=== PATIENT | male | born 1965 | race Caucasian/White ===

== ENCOUNTER 2016-04-13 17:12 | Emergency (ER) | payer BC ==
[~2016-04-13] VITALS: Ht 182.9 cm; Wt 71.0 kg
[~2016-04-13 17:12] MED LIST: CYAN3INJ PO; LORA5TAB3 PO; METR-163 PO; PEDICHW18 PO; PRLSR20 PO; VTMD PO; [UNRECOGNIZED DRUG - CODE]
[2016-04-13 17:18] VITALS: BP 159/90; PULSE 63; TEMP 36.9; O2SAT 97; Ht 182.9 cm; Wt 71.0 kg
--- NOTE | 2016-04-13 18:06 | EMERGENCY ROOM VISIT NOTE ---
ED Visit Note First contact with patient: 17:36 CHIEF COMPLAINT: PICC line evaluation HISTORY OF PRESENT ILLNESS: This 50-year-old male patient presents to the emergency department for evaluation of his PICC line. The PICC line was placed earlier today. He states when he got home he noticed there was bleeding under the bandage. He denies any fevers. He denies any injury. Denies any other complaints. The patient states they tried to put a PICC line in the right arm and he noticed some discoloration to that arm. He has not had any numbness or tingling. He has the PICC line for TPN which she has not yet started. REVIEW OF SYSTEMS: A 10 system review of systems was completed with positives and pertinent negatives listed in the HPI. ALLERGIES: Sulfa MEDICATIONS: See nursing notes PMH: Crohn's disease SOCIAL HISTORY: The patient lives locally with family PHYSICAL EXAM: VITALS: Vitals are noted on the nurse's note and reviewed by myself. Vital signs stable. GENERAL: This is a 50-year-old male, in no acute distress, nondiaphoretic, well- developed well-nourished. SKIN: The left upper arm reveals a PICC line with a small amount of blood beneath the Tegaderm dressing. There is no erythema, warmth, drainage of pus. The right arm reveals a blue discoloration which was easily removed with an alcohol wipe. EMERGENCY DEPARTMENT COURSE: The patient presented for PICC line evaluation. He was evaluated by the PICC line nurse to change the dressing and felt the PICC line is functioning well and will do fine. I believe the discoloration to the right arm that concerned the patient was due to chlorhexidine and Betadine. It was easily removed with an alcohol wipe. The patient should continue his current medications. He should return with worsening symptoms. Problem List Medical Problems: (1) Crohn's disease Permanent Comment: s/p small bowel resection Status: Chronic (2) Long-term use of immunosuppressant medication Permanent Comment: Cimzia, Imuran, IVIG Status: Chronic Surgical Problems: (1) History of bowel resection Permanent Comment: 2/3rds small bowel removed 2* crohns Status: Resolved Current/Historical Medications Scheduled Azathioprine (Imuran), 150 MG PO DAILY Budesonide (Entocort Ec), 6 MG PO DAILY Calcium/Vitamin D (Os-Leonardo 500 Plus D), 1 TAB PO DAILY Cholestyramine (Cholestyramine), 6 GM PO BID Cyanocobalamin (Cyanocobalamin), 1,000 MCG IM WK Ergocalciferol (Vitamin D), 50,000 INTER.UNIT PO 2XWK Golimumab (Simponi), 100 MG SC [id number] Immune Globulin (Human) Iv (Bivigam), 1 DOSE IV. [id number] Loperamide Hcl (Imodium A-D), 6 MG PO TID Metronidazole (Flagyl), 250 MG PO UD Omeprazole (Prilosec), 20 MG PO BID Pediatric Multiple Vitamin W/ (Childrens Chewable Vitamin), 1 CHW PO DAILY Zoledronic Acid (Reclast), 5 MG IV YEARLY Scheduled PRN Acetaminophen (Tylenol), 1,000 MG PO UD PRN for Pain Loratadine & Pseudoephedrine (Claritin-D 12 Hour), 1 TAB PO BID PRN for Allergy Symptoms Allergies Coded Allergies: Sulfa Antibiotics (Verified Allergy, Unknown, UNKNOWN, 04/13/16) Infliximab (Verified Adverse Reaction, Severe, " LUPUS SYMPTOMS", 04/13/16) Vital Signs Date Time Temp Pulse Resp B/P Pulse Ox O2 Delivery O2 Flow Rate FiO2 04/13/16 17:18 36.9 63 18 159/90 97 Room Air Departure Information Impression Primary Impression: Bleeding from PICC line Dispostion Home / Self-Care Condition GOOD Referrals Jp Morales M.D. (PCP) Patient Instructions My [facility] Additional Instructions Return with any worsening bleeding, fevers, redness, warmth Otherwise, continue your prescribed medications and follow up with your family doctor as needed Problem Qualifiers Primary Impression: Bleeding from PICC line Encounter type: initial encounter Qualified Codes: T82.838A - Hemorrhage due to vascular prosthetic devices, implants and grafts, initial encounter
[2016-09-29] MEDS ORDERED: BUDE3CAP14 PO (02:41)
[2016-09-29] MEDS ORDERED: LOPE-5 PO (05:50)
[2016-09-29] MEDS ORDERED: ACET-1256 PO (05:51)
[2016-09-29] MEDS ORDERED: CHOL4POW3 PO (08:41)
[2016-09-29] MEDS ORDERED: TPN IV (08:59)
[2016-09-29] MEDS ORDERED: AZAT50TA17 PO (10:25)
[2016-09-29] MEDS ORDERED: ZOLE5INJ IV (10:34)
[2016-09-29] MEDS ORDERED: IMMU1INJ IV. (10:34)
[2016-09-29] MEDS ORDERED: CALC500C70 PO (12:48)
[2016-09-29] MEDS ORDERED: CYNI1000 IM (17:42)
[2016-09-29] MEDS ORDERED: METR250T PO (17:42)
[2016-09-29] MEDS ORDERED: [UNRECOGNIZED DRUG - CODE] SC (17:42)
== END 2016-04-13 18:14 | disposition home or self-care (01) ==
LOC: C.EDB 17:13 → C.EDD 18:14
DX: T82.838A Hemorrhage due to vascular prosthetic devices, implants and grafts, initial encounter (principal); K50.90 Crohn's disease, unspecified, without complications; Z90.49 Acquired absence of other specified parts of digestive tract; Z79.899 Other long term (current) drug therapy; X58.XXXA Exposure to other specified factors, initial encounter; Y93.89 Activity, other specified; Y92.89 Other specified places as the place of occurrence of the external cause; Y99.8 Other external cause status

== ENCOUNTER 2016-04-15 22:55 | Emergency (ER) | payer BC ==
[~2016-04-15] VITALS: Ht 182.9 cm; Wt 71.4 kg
[~2016-04-15 22:55] MED LIST changes: -CYAN3INJ PO; -METR-163 PO; -[UNRECOGNIZED DRUG - CODE]
[2016-04-15 23:00] VITALS: TEMP 36.7; Ht 182.9 cm; Wt 71.4 kg
--- NOTE | 2016-04-15 23:38 | EMERGENCY ROOM VISIT NOTE ---
History Report prepared by Dayana: Oxana Hardin Under the Supervision of: Dr. Perez Pike M.D. First contact with patient: 23:27 Chief Complaint: LEG PAIN,LEG INJURY Stated Complaint: PAIN IN LEG (BLOOD CLOT), HAS PICC LINE History of Present Illness The patient is a 50 year old male who presents to the Emergency Room with complaints of persistent pain in his bilateral legs that began around 1700 this evening. He is accompanied by his . He rates his current discomfort as a 2/ 10. He reports around 2100 tonight, he experienced a "sharp" pain in his legs. It has mostly resolved, but he still complains of feeling a sensation of "tightness" in both legs. He denies any color change in his legs or feet, back pain or urinary symptoms. He notes he was unable to sleep this evening because he was worried about his legs, so he came to the ED. The patient had a PICC line placed in his left upper arm 2 days ago in order to receive TPN for a history of Crohn's disease. The TPN is administered for approximately 8 hours each night, and he has a nurse come to his home once a week to check the line. The patient denies any recent heavy lifting or strenuous activity. He notes his job is pretty sedentary and states "I sat at a desk for about 8 hours today at work". He denies any shortness of breath or chest pain. The patient also denies any history of previous DVT's. Source of History: patient Onset: 1700 tonight Position: leg (bilateral) Symptom Intensity: 2/10 Quality: other ("tightness") Timing: other (persistent) Associated Symptoms: No SOB, No back pain, No chest pain, No urinary symptoms Review of Systems See HPI for pertinent positives & negatives. A total of 6 systems reviewed and were otherwise negative. Past Medical & Surgical Medical Problems: (1) Crohn's disease (2) Long-term use of immunosuppressant medication Surgical Problems: (1) History of bowel resection Family History Cancer Diabetes mellitus Kidney disease Kidney stones Social History Smoking Status: Never Smoker Drug Use: none Marital Status: Housing Status: lives with family Occupation Status: employed Current/Historical Medications Scheduled Azathioprine (Imuran), 150 MG PO DAILY Budesonide (Entocort Ec), 6 MG PO DAILY Calcium/Vitamin D (Os-Leonardo 500 Plus D), 1 TAB PO DAILY Cholestyramine (Cholestyramine), 6 GM PO BID Cyanocobalamin (Cyanocobalamin), 1,000 MCG IM WK Ergocalciferol (Vitamin D), 50,000 INTER.UNIT PO 2XWK Golimumab (Simponi), 100 MG SC [id number] Immune Globulin (Human) Iv (Bivigam), 1 DOSE IV. [id number] Loperamide Hcl (Imodium A-D), 6 MG PO TID Metronidazole (Flagyl), 250 MG PO UD Omeprazole (Prilosec), 20 MG PO BID Pediatric Multiple Vitamin W/ (Childrens Chewable Vitamin), 1 CHW PO DAILY Zoledronic Acid (Reclast), 5 MG IV YEARLY Scheduled PRN Acetaminophen (Tylenol), 1,000 MG PO UD PRN for Pain Loratadine & Pseudoephedrine (Claritin-D 12 Hour), 1 TAB PO BID PRN for Allergy Symptoms Allergies Coded Allergies: Sulfa Antibiotics (Verified Allergy, Unknown, UNKNOWN, 04/16/16) Infliximab (Verified Adverse Reaction, Severe, " LUPUS SYMPTOMS", 04/16/16) Physical Exam Vital Signs Date Time Temp Pulse Resp B/P Pulse Ox O2 Delivery O2 Flow Rate FiO2 04/16/16 00:55 66 16 122/66 97 Room Air 04/15/16 23:00 36.7 65 18 146/82 99 Room Air Physical Exam GENERAL: Patient is mildly anxious appearing but in no acute distress. HEENT: No acute trauma, normocephalic atraumatic, mucous membranes moist, no nasal congestion, no scleral icterus. NECK: No stridor, no adenopathy, no meningismus, trachea is midline. LUNGS: No dyspnea. Clear to auscultation and equal bilaterally. No wheeze, no rhonchi. HEART: Regular rate and rhythm. No murmurs, rubs, gallops appreciated. EXTREMITIES: PICC line in left arm, dried blood around insertion, otherwise no swelling, no bruise, no discoloration. Normal motion all extremities, no cyanosis, no edema. Strong bilateral pulses in feet. NEUROLOGIC: Alert and oriented, no acute motor or sensory deficits, no focal weakness, cranial nerves grossly intact. SKIN: No rash, no jaundice, no diaphoresis. Medical Decision & Procedures ER Provider Diagnostic Interpretation: This Ultrasound was reviewed and interpreted by the radiologist and reviewed by myself. US VENOUS BILATERAL LOWER EXTREMITIES No evidence of deep venous thrombosis. Radiologist: Dr. Perez Maldonado MD ED Course 2331: The patient was evaluated in room B5. A complete history and physical exam was performed. 0050: I reevaluated the patient. He is feeling well and resting comfortably. I discussed his test results and discharge instructions and he and his verbalized complete understanding and agreement. Medical Decision Differential: Fracture, Dislocation, Cellulitis, Septic Joint, Ligamentous Injury, Effusion, DVT, amongst other pathologies entertained. 50 yr old male with history of Crohn's who just started TPN yesterday and now with episode earlier of bilateral leg pains. Just had labs done at 12 hours ago as outpatient for TPN thus will hold on redoing these. US negative for DVT. Patient feeling fine with no complaints nor further symptoms. Great pulses bilateral and neuro intact. No evidence infection nor history of injury. May be due to TPN administration or just spasm from sitting all day at work? Discussed symptoms requiring return and need to follow up with PCP to discuss further testing/imaging if symptoms continue. Impression Primary Impression: Bilateral leg pain Scribe Attestation The scribe's documentation has been prepared under my direction and personally reviewed by me in its entirety. I confirm that the note above accurately reflects all work, treatment, procedures, and medical decision making performed by me. Departure Information Dispostion Home / Self-Care Referrals Jp Morales M.D. (PCP) Patient Instructions My [facility] Additional Instructions An ultrasound of the legs was unremarkable for any blood clots. If symptoms continue discuss with your primary care provider having repeat imaging. If severe pain, discoloration, swelling, fevers, or other concerns, return for further evaluation.
[2016-04-16 00:55] VITALS: BP 122/66; PULSE 66; O2SAT 97
--- NOTE | 2016-04-16 06:19 | DIAGNOSTIC IMAGING REPORT ---
BILATERAL LOWER EXTREMITY VENOUS DOPPLER HISTORY: Pain. Edema. left posterior knee pain worse than right. On immune med and TPN COMPARISON STUDY: None. FINDINGS: There is normal compressibility, flow, and augmentation within the bilateral lower extremity deep venous systems. IMPRESSION: No DVT within the right or left lower extremity. Electronically signed by: Jp Barbosa M.D. 04/16/2016 6:18 AM Dictated Date/Time: 04/16/2016 6:18 AM
[2016-09-29] MEDS ORDERED: BUDE3CAP14 PO (02:41)
[2016-09-29] MEDS ORDERED: LOPE-5 PO (05:50)
[2016-09-29] MEDS ORDERED: ACET-1256 PO (05:51)
[2016-09-29] MEDS ORDERED: CHOL4POW3 PO (08:41)
[2016-09-29] MEDS ORDERED: TPN IV (08:59)
[2016-09-29] MEDS ORDERED: AZAT50TA17 PO (10:25)
[2016-09-29] MEDS ORDERED: IMMU1INJ IV. (10:34)
[2016-09-29] MEDS ORDERED: ZOLE5INJ IV (10:34)
[2016-09-29] MEDS ORDERED: CALC500C70 PO (12:48)
[2016-09-29] MEDS ORDERED: METR250T PO (17:42)
[2016-09-29] MEDS ORDERED: CYNI1000 IM (17:42)
[2016-09-29] MEDS ORDERED: [UNRECOGNIZED DRUG - CODE] SC (17:42)
== END 2016-04-16 01:04 | disposition home or self-care (01) ==
LOC: C.EDB 22:56
DX: M79.604 Pain in right leg (principal); M79.605 Pain in left leg; K50.90 Crohn's disease, unspecified, without complications; Z98.890 Other specified postprocedural states; Z79.4 Long term (current) use of insulin; Z79.899 Other long term (current) drug therapy; Z88.2 Allergy status to sulfonamides; Z88.8 Allergy status to other drugs, medicaments and biological substances; Z80.9 Family history of malignant neoplasm, unspecified; Z83.3 Family history of diabetes mellitus; Z84.1 Family history of disorders of kidney and ureter

== ENCOUNTER 2016-05-28 07:07 | Observation (INO) | payer BC ==
[~2016-05-28] VITALS: Ht 182.9 cm; Wt 78.2 kg
[2016-05-28] MEDS ORDERED: MoRPHine SULFATE 10 MG/ML CARP/VIAL IV STA (07:29)
[2016-05-28] MEDS ORDERED: ONDANSETRON INJ 2 MG/ML 2 ML VIAL IV STA (07:29)
[2016-05-28] MEDS ORDERED: DEXAMETHASONE SOD INJ 10 MG/ML VIAL IV ONE (07:30)
[2016-05-28] MEDS ORDERED: FLUT0.15 NAE (08:22)
[2016-05-28] MEDS ORDERED: AZEL0.055 OP (08:22)
[2016-05-28] MEDS ORDERED: HYDR2.5C37 RE (08:22)
[2016-05-28 08:37] LABS: BUN/CREATININE RATIO 30.2 (10-20); CALCIUM 8.7 mg/dl (8.5-10.1); CREATININE 0.83 mg/dl (0.60-1.40); POTASSIUM 3.9 mmol/L (3.5-5.1)
[2016-05-28 08:39] LABS: THYROID STIMULATING HORMONE 5.06 uIu/ml (0.300-4.500)
--- NOTE | 2016-05-28 08:39 | DIAGNOSTIC IMAGING REPORT ---
LUMBAR SPINE 5 VIEWS HISTORY: Pain low back pain COMPARISON: None. FINDINGS: There is no fracture. No subluxation. Disc spaces are preserved. IMPRESSION: No fracture or subluxation within the lumbar spine. Electronically signed by: Jp Barbosa M.D. 05/28/2016 8:38 AM Dictated Date/Time: 05/28/2016 8:37 AM
[2016-05-28 08:54] LABS: HEMATOCRIT 38.9 % (42-52); MEAN CELL VOLUME 90.9 fL (80-100); MEAN CORPUSCULAR HEMOGLOBIN 31.5 pg (25-34); MEAN CORPUSCULAR HGB CONC 34.7 g/dl (32-36); MEAN PLATELET VOLUME 8.9 fL (7.4-10.4); PLATELET COUNT 296 K/uL (130-400); RED BLOOD COUNT 4.28 M/uL (4.7-6.1); WHITE BLOOD COUNT 32.75 K/uL (4.8-10.8)
[2016-05-28 08:55] LABS: COMPLETE YES; LYMPH ABS # 1.15 K/uL (1.2-3.4); LYMPHOCYTE % 3.5 %; PLT ESTIMATE NORMAL
[2016-05-28 09:34] LABS: C-REACTIVE PROTEIN 2.95 mg/dl (0-0.29)
[2016-05-28] MEDS ORDERED: OPTIRAY 320 IV PRN (10:00)
--- NOTE | 2016-05-28 11:07 | DIAGNOSTIC IMAGING REPORT ---
LUMBAR SPINE MRI WITH AND WITHOUT CONTRAST HISTORY: Pain. Fever. low back pain, elevated white count TECHNIQUE: Multiplanar multisequence MRI of the lumbar spine was performed both before and after the intravenous administration of contrast. COMPARISON: None. FINDINGS: For the purpose of the report the L5-S1 disc space will be located on axial image 27 of 30. Normal signal characteristics of the vertebral bodies as well as discs. No abnormal postcontrast enhancement area in L1-L2: No significant central canal or neural foraminal narrowing. L2-L3: No significant central canal or neural foraminal narrowing. L3-L4: No significant central canal or neural foraminal narrowing. L4-L5: No significant central canal or neural foraminal narrowing. L5-S1: No significant central canal or neural foraminal narrowing. IMPRESSION: Normal MRI of the lumbar spine. No evidence for abnormal postcontrast enhancement. No evidence for mass abscess or collection. Electronically signed by: Jp Barbosa M.D. 05/28/2016 11:05 AM Dictated Date/Time: 05/28/2016 11:03 AM
[2016-05-28] MEDS ORDERED: ACETAMINOPHEN 500 MG TAB PO STA (11:47)
--- NOTE | 2016-05-28 14:31 | DIAGNOSTIC IMAGING REPORT ---
CT OF THE ABDOMEN AND PELVIS WITH CONTRAST CLINICAL HISTORY: Elevated white count. History of Crohn's disease. Leg and lower back pain. COMPARISON STUDY: CT of the abdomen and pelvis July 13, 2015 and MRI of the pelvis September 05, 2015. TECHNIQUE: Following IV administration of 115 mL of Optiray-320, axial images of the abdomen and pelvis were obtained from the lung bases to the proximal femurs. Images were reviewed in the axial, sagittal, and coronal planes. IV contrast was administered without complication. CT DOSE: 314.94 mGy.cm FINDINGS: Lung bases are clear. The liver, spleen, adrenal glands, kidneys and pancreas are unremarkable with exception of a 3 mm calculus within the lower pole of the left kidney. There are no ureteral calculi. There is no hydronephrosis. There is no peripancreatic or pericholecystic infiltration. There is no evidence for a bowel obstruction. Fat-containing ventral hernias noted. The appendix is not identified. There is no right lower quadrant inflammation. No bowel wall thickening is identified. The right gluteal fold abscess shown on MRI of September 05, 2015 has resolved. There may be a tiny residual fistulous tract. There is no drainable fluid collection. No pneumatosis, free air or portal venous gas is present. Skeletal structures are unremarkable. IMPRESSION: 1. No acute process within the abdomen or pelvis. 2. Resolution of right gluteal fold abscess shown on prior MRI of September 05, 2015. 3. 3 mm left renal calculus. No ureteral calculi or hydronephrosis. Electronically signed by: Lev Giles M.D. 05/28/2016 2:30 PM Dictated Date/Time: 05/28/2016 2:08 PM
--- NOTE | 2016-05-28 14:50 | EMERGENCY ROOM VISIT NOTE ---
History First contact with patient: 07:18 Chief Complaint: BACK PAIN Stated Complaint: LEG PAIN, LOWER BACK PAIN History of Present Illness The patient is a 50 year old male who presents to the Emergency Room with complaints of low back pain and bilateral thigh pain. The patient denies any history of any herniated disks in his lower back. She denies any recent falls or any recent trauma to his back. The patient denies any pain in his calves or any numbness and tingling in his legs. He describes it more as a "achy feeling in his legs. The patient was here one month ago for similar see symptoms and symptoms and his symptoms and had bilateral Dopplers which did not reveal any evidence of DVT. The patient is on TPN and does admit that one of his nutritional supplements have unchanged. The patient denies any nausea or vomiting or any abdominal pain. 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 He also receives 2 immunomodulators. Review of Systems 6 system review was performed and was negative unless stated otherwise in history of present illness. Past Medical/Surgical History Medical Problems: (1) Crohn's disease (2) Long-term use of immunosuppressant medication Surgical Problems: (1) History of bowel resection Family History Cancer Diabetes mellitus Kidney disease Kidney stones Social History Smoking Status: Never Smoker Drug Use: none Marital Status: Housing Status: lives with family Occupation Status: employed Current/Historical Medications Scheduled Azathioprine (Imuran), 150 MG PO DAILY Azelastine Hcl (Ophth) (Azelastine Hcl), 1 DROPS OP BID Budesonide (Entocort Ec), 6 MG PO DAILY Calcium/Vitamin D (Os-Leonardo 500 Plus D), 1 TAB PO DAILY Cholestyramine (Cholestyramine), 6 GM PO BID Cyanocobalamin (Cyanocobalamin), 1,000 MCG IM WK Ergocalciferol (Vitamin D), 50,000 INTER.UNIT PO 2XWK Golimumab (Simponi), 100 MG SC [id number] Hydrocortisone 2.5% (Rectal) (Anusol-Hc 2.5%), 1 APPLN RE DAILY Immune Globulin (Human) Iv (Bivigam), 1 DOSE IV. [id number] Loperamide Hcl (Imodium A-D), 6 MG PO TID Metronidazole (Flagyl), 250 MG PO UD Omeprazole (Prilosec), 20 MG PO BID Zoledronic Acid (Reclast), 5 MG IV YEARLY Scheduled PRN Acetaminophen (Tylenol), 1,000 MG PO UD PRN for Pain Miscellaneous Medications Fluticasone Propionate (Nasal) (Flonase Allergy Relief) Allergies Coded Allergies: Sulfa Antibiotics (Verified Allergy, Unknown, UNKNOWN, 05/28/16) Infliximab (Verified Adverse Reaction, Severe, " LUPUS SYMPTOMS", 05/28/16) Physical Exam Vital Signs Date Time Temp Pulse Resp B/P Pulse Ox O2 Delivery O2 Flow Rate FiO2 05/28/16 14:30 82 16 118/76 95 Room Air 05/28/16 11:42 84 16 128/74 98 Room Air 05/28/16 09:57 36.8 88 16 126/74 96 Room Air 05/28/16 08:19 82 20 126/76 96 Room Air 05/28/16 07:12 36.6 91 18 123/80 97 Room Air Physical Exam GENERAL: 50 -year-old white male appears in no acute distress. MENTAL S: Alert and oriented 3. Without murmur NECK: Supple, no lymphadenopathy noted. No carotid bruits noted. LUNGS: Clear auscultation without wheezes rales or rhonchi. CARDIAC: Regular rate and rhythm with occasional ectopy. Pulses is full and equal throughout. ABDOMEN: Positive bowel sounds all 4 quadrants. Soft, nontender to palpation without organomegaly or masses. LUMBAR SPINE: The patient is nontender to palpation over the spinous processes in the paravertebral region. Full range of motion. The patient is able to heel and toe walk without difficulty. Bilateral patellar and Achilles reflexes are 2+. Negative straight leg raise bilaterally. LOWER EXTREMITIES: Calves are nontender no palpable cords. Negative Homans bilaterally. BUTTOCKS: There is a small fistula adjacent to the anus on the right side without any purulent drainage or firm palpable mass in the region. There is no redness or increased temperature to touch. Medical Decision & Procedures ER Provider Diagnostic Interpretation: LUMBAR SPINE 5 VIEWS HISTORY: Pain low back pain COMPARISON: None. FINDINGS: There is no fracture. No subluxation. Disc spaces are preserved. IMPRESSION: No fracture or subluxation within the lumbar spine. Electronically signed by: Jp Barbosa M.D. 05/28/2016 8:38 AM Dictated Date/Time: 05/28/2016 8:37 AM LUMBAR SPINE MRI WITH AND WITHOUT CONTRAST HISTORY: Pain. Fever. low back pain, elevated white count TECHNIQUE: Multiplanar multisequence MRI of the lumbar spine was performed both before and after the intravenous administration of contrast. COMPARISON: None. FINDINGS: For the purpose of the report the L5-S1 disc space will be located on axial image 27 of 30. Normal signal characteristics of the vertebral bodies as well as discs. No abnormal postcontrast enhancement area in L1-L2: No significant central canal or neural foraminal narrowing. L2-L3: No significant central canal or neural foraminal narrowing. L3-L4: No significant central canal or neural foraminal narrowing. L4-L5: No significant central canal or neural foraminal narrowing. L5-S1: No significant central canal or neural foraminal narrowing. IMPRESSION: Normal MRI of the lumbar spine. No evidence for abnormal postcontrast enhancement. No evidence for mass abscess or collection. Electronically signed by: Jp Barbosa M.D. 05/28/2016 11:05 AM Dictated Date/Time: 05/28/2016 11:[address] OF THE ABDOMEN AND PELVIS WITH CONTRAST CLINICAL HISTORY: Elevated white count. History of Crohn's disease. Leg and lower back pain. COMPARISON STUDY: CT of the abdomen and pelvis July 13, 2015 and MRI of the pelvis September 05, 2015. TECHNIQUE: Following IV administration of 115 mL of Optiray-320, axial images of the abdomen and pelvis were obtained from the lung bases to the proximal femurs. Images were reviewed in the axial, sagittal, and coronal planes. IV contrast was administered without complication. CT DOSE: 314.94 mGy.cm FINDINGS: Lung bases are clear. The liver, spleen, adrenal glands, kidneys and pancreas are unremarkable with exception of a 3 mm calculus within the lower pole of the left kidney. There are no ureteral calculi. There is no hydronephrosis. There is no peripancreatic or pericholecystic infiltration. There is no evidence for a bowel obstruction. Fat-containing ventral hernias noted. The appendix is not identified. There is no right lower quadrant inflammation. No bowel wall thickening is identified. The right gluteal fold abscess shown on MRI of September 05, 2015 has resolved. There may be a tiny residual fistulous tract. There is no drainable fluid collection. No pneumatosis, free air or portal venous gas is present. Skeletal structures are unremarkable. IMPRESSION: 1. No acute process within the abdomen or pelvis. 2. Resolution of right gluteal fold abscess shown on prior MRI of September 05, 2015. 3. 3 mm left renal calculus. No ureteral calculi or hydronephrosis. Electronically signed by: Lev Gilse M.D. 05/28/2016 2:30 PM Laboratory Results 05/28/16 07:50 Red Blood Count 4.28, Mean Corpuscular Volume 90.9, Mean Corpuscular Hemoglobin 31.5, Mean Corpuscular Hemoglobin Concent 34.7, Mean Platelet Volume 8.9 05/28/16 07:50 Test 05/28/16 07:50 05/28/16 09:35 White Blood Count 32.75 K/uL (4.8-10.8) Red Blood Count 4.28 M/uL (4.7-6.1) Hemoglobin 13.5 g/dL (14.0-18.0) Hematocrit 38.9 % (42-52) Mean Corpuscular Volume 90.9 fL (80-100) Mean Corpuscular Hemoglobin 31.5 pg (25-34) Mean Corpuscular Hemoglobin Concent 34.7 g/dl (32-36) Platelet Count 296 K/uL (130-400) Mean Platelet Volume 8.9 fL (7.4-10.4) RDW Standard Deviation 48.7 fL (36.4-46.3) RDW Coefficient of Variation 14.6 % (11.5-14.5) Neutrophils % (Manual) 93.0 % Lymphocytes % (Manual) 3.5 % Monocytes % (Manual) 3.5 % Neutrophils # (Manual) 30.46 K/uL (1.4-6.5) Total Absolute Neutrophils 30.46 K/uL (1.4-6.5) Lymphocytes # (Manual) 1.15 K/uL (1.2-3.4) Total Absolute Lymphocytes 1.15 K/uL (1.2-3.4) Monocytes # (Manual) 1.15 K/uL (0.11-0.59) Platelet Estimate NORMAL Red Blood Cell Morphology Unremarkable Erythrocyte Sedimentation Rate 27 mm/hr (0-14) Anion Gap 8.0 mmol/L (3-11) Est Creatinine Clear Calc Drug Dose 119.5 ml/min Estimated GFR () 120.6 Estimated GFR (Non- 104.0 BUN/Creatinine Ratio 30.2 (10-20) Calcium Level 8.7 mg/dl (8.5-10.1) C-Reactive Protein 2.95 mg/dl (0-0.29) Thyroid Stimulating Hormone (TSH) 5.060 uIu/ml (0.300-4.500) Lactic Acid Level 1.6 mmol/L (0.4-2.0) Medications Administered Medications (Trade) Dose Ordered Sig/Griselda Route Start Time Stop Time Status Last Admin Dose Admin Morphine Sulfate (MoRPHine SULFATE INJ) 6 mg NOW STAT IV 05/28/16 07:29 05/28/16 07:32 DC 05/28/16 08:09 6 MG Ondansetron HCl (Zofran Inj) 4 mg NOW STAT IV 05/28/16 07:29 05/28/16 07:32 DC 05/28/16 08:08 4 MG Dexamethasone Sodium Phosphate (Decadron Inj) 10 mg NOW ONCE IV 05/28/16 07:30 05/28/16 07:32 DC 05/28/16 08:08 10 MG Acetaminophen (Tylenol Tab) 1,000 mg NOW STAT PO 05/28/16 11:47 05/28/16 11:48 DC 05/28/16 11:56 1,000 MG ED Course The patient was evaluated. IV access was obtained. CBC and differential, sedimentation rate, CRP, lactic acid was ordered. The patient's lactic acid was normal. His sedimentation rate was elevated at 27. His CRP was 2.95. I also ordered a TSH which was 5.06. X-ray of the lumbar spine was ordered and interpreted by the radiologist as above without any acute findings. An MRI of the lumbar spine was ordered with IV contrast since the patient's white count was elevated at 34,000. We do not have any recent labs for comparison. The patient's case was discussed with Dr. Chicas who independently evaluated the patient. The MRI was to by the radiologist without any acute findings as above. The patient was informed of the findings. The patient was reevaluated and was requesting Tylenol. The patient was given 1 g of Tylenol by mouth for pain. A CT of the abdomen pelvis was ordered and interpreted by the radiologist as above without any acute findings. The patient's case was again discussed with Dr. Chicas and she agree with treatment plan. The hospitalist was consulted for admission. Medical Decision The decision was made to bring the patient due to the patient's severe leukocytosis Differential diagnosis include abdominal abscess, spinal abscess, UTI, pyelonephritis Impression Primary Impression: Leukocytosis Additional Impression: Back pain Departure Information Dispostion Being Evaluated By Hospitalist Condition GOOD Referrals Jp Morales M.D. (PCP) Patient Instructions [facility] Problem Qualifiers
[2016-05-28] MEDS ORDERED: ONDANSETRON INJ 2 MG/ML 2 ML VIAL IV PRN (15:45)
[2016-05-28] MEDS ORDERED: ACETAMINOPHEN 325 MG TAB PO PRN (15:45)
[2016-05-28] MEDS ORDERED: CYCLOBENZAPRINE HCL 10 MG TAB PO PRN (16:00)
[2016-05-28] MEDS ORDERED: KETOROLAC TROMETHAMINE 30 MG/ML VIAL IV PRN (16:00)
[2016-05-28] MEDS ORDERED: HYDR25SU20 PR (16:01)
[2016-05-28 16:27] VITALS: Ht 182.9 cm; Wt 78.2 kg
--- NOTE | 2016-05-28 16:44 | History and Physical ---
History & Physical Date & Time of Service: May 28, 2016 at 16:03 Chief Complaint: Leg Pain, Lower Back Pain Primary Care Physician: Jp Morales M.D. History of Present Illness Source: patient This is a 50 y/o male with PMHx of Crohns Dz and other problems as outlined below who presents to the ED c/o lower back pain that began last night. Pt reports that last night he developed back pain that he describes as 10/10 "achy " lower back pain. The pain radiates down buttock and into posterior thighs bilat. Pain does not radiate past the knees. Pt tried taking Tylenol and applying a heat pad at home which did offer some relief. Pt denies prior history of back problems or recent injury/fall. In retrospect, pt does recall that about an hour before the back pain started he lifted a very heavy bucket of coal that may have injured his back in some way. Pt has a history of Crohns Dz. He underwent a small bowel resection in 2012 and is currently on Imuran, Simponi and IVIG for maintenance therapy. 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 Pt was doing well however he had more weight loss in and went back on TPN April 14. Last colonoscopy was 05/13 which showed perianal ulcer/fistula that was improved from September. Pt follows with GI at [facility] (Dr. Booth). Pt denies fever/chills, diaphoresis, chest pain, palpitations, SOB, wheezing, abd pain, N/V, change in bowels, bladder issues, LE edema ,calf pain, lightheadedness/dizziness. In the ED, vitals are stable. Pt is afebrile with leukocytosis >32k. Lactic acid 1.6. elevated ESR/CRP. TSH 5. Lumbar Spine MRI negative for acute abnormalities. No evidence of abscess. Lumbar Spine Xray negative for fx. Abd/pelvis CT resolution of R gluteal fold abscess. No acute process. Pt is currently back pain free and will be admitted for further evaluation and treatment. Past Medical/Surgical History Medical Problems: (1) Crohn's disease Permanent Comment: s/p small bowel resection Status: Chronic (2) Long-term use of immunosuppressant medication Permanent Comment: Simponi, Imuran, IVIG Status: Chronic Surgical Problems: (1) History of bowel resection Permanent Comment: 2/3rds small bowel removed 2* crohns Status: Resolved Family History Cancer Diabetes mellitus Kidney disease Kidney stones Social History Smoking Status: Never Smoker Alcohol Use: none Drug Use: none Marital Status: Housing status: lives with family Occupational Status: employed Immunizations History of Influenza Vaccine: Yes History of Tetanus Vaccine?: UNSURE History of Pneumococcal: Yes History of Hepatitis B Vaccine: Unknown Multi-Drug Resistant Organisms History of MDRO: No Allergies Coded Allergies: Sulfa Antibiotics (Verified Allergy, Unknown, UNKNOWN, 05/28/16) Infliximab (Verified Adverse Reaction, Severe, " LUPUS SYMPTOMS", 05/28/16) Home Medications Scheduled Azathioprine (Imuran), 150 MG PO DAILY Azelastine Hcl (Ophth) (Azelastine Hcl), 1 DROPS OP BID Budesonide (Entocort Ec), 6 MG PO DAILY Calcium/Vitamin D (Os-Leonardo 500 Plus D), 1 TAB PO DAILY Cholestyramine (Cholestyramine), 6 GM PO BID Cyanocobalamin (Cyanocobalamin), 1,000 MCG IM WK Ergocalciferol (Vitamin D), 50,000 INTER.UNIT PO 2XWK Golimumab (Simponi), 100 MG SC [id number] Hydrocortisone Acetate (Rectal (Anusol-Hc), 25 MG MT HS Immune Globulin (Human) Iv (Bivigam), 1 DOSE IV. [id number] Loperamide Hcl (Imodium A-D), 6 MG PO TID Metronidazole (Flagyl), 250 MG PO UD Omeprazole (Prilosec), 20 MG PO BID Zoledronic Acid (Reclast), 5 MG IV YEARLY Scheduled PRN Acetaminophen (Tylenol), 1,000 MG PO UD PRN for Pain Miscellaneous Medications Fluticasone Propionate (Nasal) (Flonase Allergy Relief) Review of Systems Constitutional: No chills, No fatigue, No fever, No sweats, No weakness Eyes: No worsening of vision ENT: No hearing loss Respiratory: No cough, No shortness of breath Cardiovascular: No chest pain, No claudication, No edema Abdomen: + diarrhea (chronic), No GI bleeding, No constipation, No nausea, No pain, No vomiting Musculoskeletal: + problem reported (back pain rad to bilat thighs), No calf pain, No swelling Genitourinary - Male: No dysuria Neurologic: No weakness Psychiatric: No depression symptoms Endocrine: No fatigue Hematologic / Lymphatic: No abnormal bleeding/bruising Integumentary: No new/changing skin lesions Physical Exam Vital Signs Date Time Temp Pulse Resp B/P Pulse Ox O2 Delivery O2 Flow Rate FiO2 05/28/16 14:30 82 16 118/76 95 Room Air 05/28/16 11:42 84 16 128/74 98 Room Air 05/28/16 09:57 36.8 88 16 126/74 96 Room Air 05/28/16 08:19 82 20 126/76 96 Room Air 05/28/16 07:12 36.6 91 18 123/80 97 Room Air General Appearance: WD/WN, no apparent distress, + pertinent finding (Pt is sitting up in bed with at bedside ) Head: normocephalic, atraumatic Eyes: normal inspection ENT: hearing grossly normal Neck: supple Respiratory/Chest: chest non-tender, lungs clear, normal breath sounds, no respiratory distress, + pertinent finding (small area of erythema around PICC line; no drainage or tenderness noted) Cardiovascular: regular rate, rhythm, no edema, no murmur Abdomen/GI: normal bowel sounds, non tender, soft Back: normal inspection, no CVA tenderness, normal range of motion, + pertinent finding (no tenderness to palpation of bony processes or paraspinal muscles ) Extremities/Musculoskelatal: normal inspection, no calf tenderness, no pedal edema Neurologic/Psych: no motor/sensory deficits, alert, normal mood/affect, oriented x 3 Skin: normal color, warm/dry Diagnostics Laboratory Results Results Past 24 Hours Test 05/28/16 07:50 05/28/16 09:35 Range/Units White Blood Count 32.75 4.8-10.8 K/uL Red Blood Count 4.28 4.7-6.1 M/uL Hemoglobin 13.5 14.0-18.0 g/dL Hematocrit 38.9 42-52 % Mean Corpuscular Volume 90.9 80-100 fL Mean Corpuscular Hemoglobin 31.5 25-34 pg Mean Corpuscular Hemoglobin Concent 34.7 32-36 g/dl Platelet Count 296 130-400 K/uL Mean Platelet Volume 8.9 7.4-10.4 fL RDW Standard Deviation 48.7 36.4-46.3 fL RDW Coefficient of Variation 14.6 11.5-14.5 % Neutrophils % (Manual) 93.0 % Lymphocytes % (Manual) 3.5 % Monocytes % (Manual) 3.5 % Neutrophils # (Manual) 30.46 1.4-6.5 K/uL Total Absolute Neutrophils 30.46 1.4-6.5 K/uL Lymphocytes # (Manual) 1.15 1.2-3.4 K/uL Total Absolute Lymphocytes 1.15 1.2-3.4 K/uL Monocytes # (Manual) 1.15 0.11-0.59 K/uL Platelet Estimate NORMAL Red Blood Cell Morphology Unremarkable Erythrocyte Sedimentation Rate 27 0-14 mm/hr Sodium Level 140 136-145 mmol/L Potassium Level 3.9 3.5-5.1 mmol/L Chloride Level 108 98-107 mmol/L Carbon Dioxide Level 24 21-32 mmol/L Anion Gap 8.0 3-11 mmol/L Blood Urea Nitrogen 25 7-18 mg/dl Creatinine 0.83 0.60-1.40 mg/dl Est Creatinine Clear Calc Drug Dose 119.5 ml/min Estimated GFR () 120.6 Estimated GFR (Non- 104.0 BUN/Creatinine Ratio 30.2 10-20 Random Glucose 135 70-99 mg/dl Calcium Level 8.7 8.5-10.1 mg/dl C-Reactive Protein 2.95 0-0.29 mg/dl Thyroid Stimulating Hormone (TSH) 5.060 0.300-4.500 uIu/ml Lactic Acid Level 1.6 0.4-2.0 mmol/L Microbiology Results 05/28/16 Blood Culture, Received Pending 05/28/16 Blood Culture, Received Pending Diagnostic Radiology CT ABD/PELVIS IMPRESSION: 1. No acute process within the abdomen or pelvis. 2. Resolution of right gluteal fold abscess shown on prior MRI of September 05, 2015. 3. 3 mm left renal calculus. No ureteral calculi or hydronephrosis. LUMBAR SPINE MRI IMPRESSION: Normal MRI of the lumbar spine. No evidence for abnormal postcontrast enhancement. No evidence for mass abscess or collection. LUMBAR SPINE XRAY IMPRESSION: No fracture or subluxation within the lumbar spine. Impression Assessment and Plan LEUKOCYTOSIS; UNCLEAR SOURCE -pt is afebrile with stable vitals -WBC >32k; lactic acid 1.6 -? if PICC line is the source of infection as small area around PICC line is mildly erythematous; no drainage or tenderness -CT abd/pelvis no acute process and MRI lumbar spine no evidence of abscess or fluid collection -will check CXR, urine and stool studies -blood cultures-pending -pt does not appear septic -monitor with daily CBC BACK PAIN pt presents with lower back pain rad to bilat thighs; no prior h/o back problems -Lumbar Spine MRI: no acute process. no abscess or fluid collection -Lumbar Spine xray: no fx -cont Tylenol and Flexeril PRN -monitor CROHN'S DZ -s/p bowel resection in 2013 -no evidence of acute flare -cont Imuran, Simponi and IVIG -pt follows with GI (Dr. Booth) at [facility] DVT PROPHYLAXIS -SCDs and ambulation CODE STATUS -FULL CODE status DISPO Observation status until further workup is complete. Pt seen in collaboration with Dr. Harkins. Please see her addendum for further details. Thanks! I have seen, examined and discussed this patient with Sully Mendoza and I agree with the above note. Patient presented with acute onset low back pain after lifting a heavy bucket of coal. Vitals stable. PE: General- awake; alert; NAD Eyes- EOMI; no scleral icterus Neck- no stridor; trachea midline Lungs- CTA bilaterally; no wheezes/crackles Heart- RRR; no m/r/g Abdomen- soft; NTND; nBS Back- no spinal or paraspinal tenderness to palpation Extremities- no c/c/e; no deformity Neuro- no focal deficits Skin- no appreciable rash Labs and imaging reviewed. Leukocytosis: Afebrile. Patient denies any symptoms other than back pain (which sounds MSK in nature after lifting a heavy bucket of coal). Patient is at risk for infection however given PICC line, being on TPN and taking immunosuppressive medications. Patient mccord-cultured. MRI l-spine negative for e/ o infection. CT a/p negative for e/o infection. No indication for empiric antibiotics at this time; patient is clinically stable. Follow up culture data. WBC count will be difficult to interpret tomorrow as patient received Decadron in ED for back pain. Hold TPN for now. Low back pain: By history, sounds c/w MSK pain. Low clinical suspicion for relation to Crohn's at this time. Lower clinical suspicion for infectious etiology given negative imaging. Continue Tylenol PRN as this works best for patient. Agree with remainder of plan as outlined above. VTE Prophylaxis VTE Risk Assessment Done? Y/N: Yes Risk Level: Moderate
--- NOTE | 2016-05-28 16:50 | DIAGNOSTIC IMAGING REPORT ---
TWO VIEW CHEST CLINICAL HISTORY: Leukocytosis. PICC placement.. FINDINGS: PA and lateral chest radiographs are compared to study dated 09/16/2015. A left PICC line has been placed. The tip of the catheter projects over the cavoatrial junction. The cardiomediastinal silhouette is unremarkable. The lungs are hyperinflated and hyperlucent with flattening of the diaphragm suggesting obstructive physiology. Chronic interstitial thickening is again seen. No airspace consolidation or pleural effusion is identified. There is no pneumothorax. The bony thorax appears intact. IMPRESSION: 1. A left PICC line has been placed. The tip of the catheter projects over the cavoatrial junction. 2. Findings suggest obstructive physiology. No airspace consolidation or pleural effusion is seen. Electronically signed by: Clint Gutierrez M.D. 05/28/2016 4:49 PM Dictated Date/Time: 05/28/2016 4:47 PM
[2016-05-28 17:03] VITALS: BP 123/78; PULSE 77; TEMP 36.9; O2SAT 99
[2016-05-28] MEDS ORDERED: HYDROCORTISONE ACETATE 25 MG SUPP PR SCH (21:00)
[2016-05-28] MEDS ORDERED: LOPERAMIDE HCL 2 MG CAP PO SCH (21:00)
[2016-05-28] MEDS: PANTOprazole SOD 40 MG TAB PO SCH (21:09)
[2016-05-28] MEDS: CHOLESTYRAMINE LIGHT 4 GM PKT PO SCH (22:00)
[2016-05-28 22:29] LABS: MANUAL MICROSCOPIC REQUIRED? NO; REVIEW REQ? NO; URINE APPEARANCE CLEAR (CLEAR); URINE BILIRUBIN NEG (NEG); URINE COLOR DK YELLOW; URINE EPITHELIAL CELL AUTO 0-5 /lpf (0-5); URINE NITRITE NEG (NEG); UROBILINOGEN NEG (NEG)
[2016-05-28 22:41] VITALS: BP 129/73; PULSE 83; TEMP 36.7; O2SAT 95
[2016-05-29 05:58] LABS: HEMATOCRIT 38.8 % (42-52); MEAN CORPUSCULAR HEMOGLOBIN 30.6 pg (25-34); MEAN PLATELET VOLUME 9.1 fL (7.4-10.4); PLATELET COUNT 327 K/uL (130-400); RED BLOOD COUNT 4.31 M/uL (4.7-6.1); WHITE BLOOD COUNT 24.28 K/uL (4.8-10.8)
[2016-05-29 06:23] LABS: BUN/CREATININE RATIO 20.6 (10-20); CALCIUM 9.2 mg/dl (8.5-10.1); CREATININE 0.87 mg/dl (0.60-1.40); POTASSIUM 4.3 mmol/L (3.5-5.1)
[2016-05-29] MEDS: PANTOprazole SOD 40 MG TAB PO SCH (07:52)
[2016-05-29] MEDS: CHOLESTYRAMINE LIGHT 4 GM PKT PO SCH (07:52)
[2016-05-29] MEDS: LOPERAMIDE HCL 2 MG CAP PO SCH ×2 (07:53→11:47)
[2016-05-29 07:54] VITALS: BP 130/78; PULSE 64; TEMP 36.7; O2SAT 97
[2016-05-29 08:01] VITALS: O2SAT 97
[2016-05-29] MEDS ORDERED: CALCIUM 600MG + VIT D 400 IU TAB PO SCH (09:00)
[2016-05-29] MEDS ORDERED: BUDESONIDE EC 3 MG CAP PO SCH ×2 (09:00→12:00)
[2016-05-29] MEDS ORDERED: FLUTICASONE PROPIONATE NA SPR 16 GM BTL SCH ×2 (09:00→21:00)
[2016-05-29] MEDS ORDERED: AZATHIOPRINE 50 MG TAB PO SCH ×2 (09:00→12:00)
[2016-05-29] MEDS ORDERED: ERGOCALCIFEROL 50,000 INTER.UNIT CAP PO ONE (12:00)
--- NOTE | 2016-05-29 12:29 | Discharge Instructions ---
Discharge Instructions Date of Service May 29, 2016. Admission Reason for Admission: Back Pain, Leukocytosis Discharge Discharge Diagnosis / Problem: BACK PAIN, LEUKOCYTOSIS Discharge Goals Goal(s): Decrease discomfort, Improve function Activity Recommendations Activity Limitations: resume your previous activity . Instructions / Follow-Up Instructions / Follow-Up FOLLOWUP WITH FAMILY DOCTOR ON May AT 8:50AM. FOLLOWUP LAB: CBC WITH PCP Current Hospital Diet Patient's current hospital diet: Regular Diet Discharge Diet Recommended Diet: Regular Diet Pending Studies Studies pending at discharge: no Medical Emergencies . Who to Call and When: Medical Emergencies: If at any time you feel your situation is an emergency, please call 911 immediately. . Non-Emergent Contact Non-Emergency issues call your: Primary Care Provider . . "Provider Documentation" section prepared by Anjum Keen. VTE Core Measure Inpt VTE Proph given/why not?: SCD's
[2016-05-29 12:49] VITALS: BP 130/78; PULSE 64; TEMP 36.7; O2SAT 97
--- NOTE | 2016-05-29 18:10 | Progress Note ---
Internal Med Progress Note Date of Service: May 29, 2016. Provider Documentation: SUBJECTIVE: resting comfortably back pain resolved afebrile no nausea no cough no abdominal pain want to go home OBJECTIVE: Vital Signs-as noted below Exam: General-alert and oriented. Not in distress ENT-normal hearing Neck-no neck masses Lungs-cta b/l no wheezing no crackles Heart-s1 and s2 heard, regular rate and rhythm no murmurs Abdomen-soft bowel sounds present non tender no distension Extremities-no edema no erythema picc line site no erythema or swelling Neuro-alert and awake moves extremities Lab data as noted below. ASSESSMENT & PLAN: LEUKOCYTOSIS; UNCLEAR SOURCE pt is afebrile with stable vitals WBC >32k on presentation trended down to 24k today; lactic acid 1.6 PICC line site no signs of infection CT abd/pelvis no acute process and MRI lumbar spine no evidence of abscess or fluid collection cxr unremarkable c diff negative blood cultures-pending pt does not appear septic wants to be discharged f/u with pcp with repeat labs BACK PAIN pt presents with lower back pain rad to bilat thighs; no prior h/o back problems Lumbar Spine MRI: no acute process. no abscess or fluid collection received a dose of Decadron in er currently asymptomatic CROHN'S DZ s/p bowel resection in 2012 asymptomatic on Imuran, Simponi and IVIG Followup with GI (Dr. Booth) at [facility] Discharged home Vital Signs: Date Time Temp Pulse Resp B/P Pulse Ox O2 Delivery O2 Flow Rate FiO2 05/29/16 12:49 36.7 64 20 97 Room Air 05/29/16 08:01 97 Room Air 05/29/16 08:00 Room Air 05/29/16 07:54 36.7 64 20 130/78 97 Room Air 05/28/16 23:30 Room Air 05/28/16 22:41 36.7 83 18 129/73 95 Room Air Lab Results: Results Past 24 Hours Test 05/28/16 22:00 05/29/16 05:05 Range/Units Urine Color DK YELLOW Urine Appearance CLEAR CLEAR Urine pH 5.0 4.5-7.5 Urine Specific [place] 1.030 1.000-1.030 Urine Protein NEG NEG Urine Glucose (UA) NEG NEG Urine Ketones TRACE NEG Urine Occult Blood 1+ NEG Urine Nitrite NEG NEG Urine Bilirubin NEG NEG Urine Urobilinogen NEG NEG Urine Leukocyte Esterase NEG NEG Urine WBC (Auto) 1-5 0-5 /hpf Urine RBC (Auto) 0-4 0-4 /hpf Urine Hyaline Casts (Auto) 1-5 0-5 /lpf Urine Epithelial Cells (Auto) 0-5 0-5 /lpf Urine Bacteria (Auto) NEG NEG White Blood Count 24.28 4.8-10.8 K/uL Red Blood Count 4.31 4.7-6.1 M/uL Hemoglobin 13.2 14.0-18.0 g/dL Hematocrit 38.8 42-52 % Mean Corpuscular Volume 90.0 80-100 fL Mean Corpuscular Hemoglobin 30.6 25-34 pg Mean Corpuscular Hemoglobin Concent 34.0 32-36 g/dl RDW Standard Deviation 48.8 36.4-46.3 fL RDW Coefficient of Variation 14.6 11.5-14.5 % Platelet Count 327 130-400 K/uL Mean Platelet Volume 9.1 7.4-10.4 fL Sodium Level 141 136-145 mmol/L Potassium Level 4.3 3.5-5.1 mmol/L Chloride Level 107 98-107 mmol/L Carbon Dioxide Level 28 21-32 mmol/L Anion Gap 6.0 3-11 mmol/L Blood Urea Nitrogen 18 7-18 mg/dl Creatinine 0.87 0.60-1.40 mg/dl Est Creatinine Clear Calc Drug Dose 114.0 ml/min Estimated GFR () 118.3 Estimated GFR (Non- 102.1 BUN/Creatinine Ratio 20.6 10-20 Random Glucose 111 70-99 mg/dl Calcium Level 9.2 8.5-10.1 mg/dl Microbiology Results 05/29/16 C.difficile Toxin B Gene (PCR) - Final, Complete No C. difficile toxin B gene detected 05/29/16 Shiga Toxin Test, Received Pending 05/29/16 Stool Culture, Received Pending
--- NOTE | 2016-05-29 18:28 | Discharge Summary ---
Discharge Summary Date of Service May 29, 2016. Discharge Summary Admission Date: May 28, 2016 at 15:44 Discharge Date: May 29, 2016 Discharge Disposition: Home Principal Diagnosis: BACK PAIN LEUKOCYTOSIS Secondary Diagnoses/Problems: (1) Crohn's disease Permanent Comment: s/p small bowel resection Status: Chronic (2) Long-term use of immunosuppressant medication Permanent Comment: Simponi, Imuran, IVIG Status: Chronic Procedures: LUMBAR SPINE XRAY: No fracture or subluxation within the lumbar spine LUMBAR SPINE MRI: Normal MRI of the lumbar spine. No evidence for abnormal postcontrast enhancement. No evidence for mass abscess or collection. CT ABD/PELVIS: 1. No acute process within the abdomen or pelvis. 2. Resolution of right gluteal fold abscess shown on prior MRI of September 05, 2015. 3. 3 mm left renal calculus. No ureteral calculi or hydronephrosis. CXR:1. A left PICC line has been placed. The tip of the catheter projects over the cavoatrial junction. 2. Findings suggest obstructive physiology. No airspace consolidation or pleural effusion is seen. Medication Reconciliation Continued Medications: Acetaminophen (Tylenol) 500 Mg Tab 1000 MG PO UD PRN for Pain, TAB TAKE PER PACKAGE DIRECTIONS Azathioprine (Imuran) 50 Mg Tab 150 MG PO DAILY Azelastine Hcl (Ophth) (Azelastine Hcl) 0.05 % Magen 1 DROPS OP BID, #6 ML 2 Refills prn Budesonide (Entocort Ec) 3 Mg Cap 6 MG PO DAILY, CAP Calcium/Vitamin D (Os-Leonardo 500 Plus D) Tab 1 TAB PO DAILY, TAB Cholestyramine (Cholestyramine) 4 Gm/Dose Pow 6 GM PO BID Cyanocobalamin (Cyanocobalamin) 1,000 Mcg/Ml Inj 1000 MCG IM WK ADMINISTER EVERY WEDNESDAY Ergocalciferol (Vitamin D) 50,000 Interunit Cap 80008 INTER.UNIT PO 2XWK TAKE THIS MEDICATION EVERY WEDNESDAY AND WEDNESDAY Fluticasone Propionate (Nasal) (Flonase Allergy Relief) 50 Mcg/Act Spr Golimumab (Simponi) 100 Mg/Ml Inj 100 MG SC [id number] Hydrocortisone Acetate (Rectal (Anusol-Hc) 25 Mg Sup 25 MG ID HS, #7 SUP Immune Globulin (Human) Iv (Bivigam) 5 Gm/50 Ml Inj 1 DOSE IV. [id number] Loperamide Hcl (Imodium A-D) 2 Mg Tab 6 MG PO TID Metronidazole (Flagyl) 250 Mg Tab 250 MG PO UD, TAB TAKE THIS MEDICATION TWICE DAILY EVERY OTHER WEEK Omeprazole (Prilosec) 20 Mg Capcr 20 MG PO BID, CAP Zoledronic Acid (Reclast) 5 Mg/100 Ml Inj 5 MG IV YEARLY Admission Information HPI (per Admitting provider): This is a 50 y/o male with PMHx of Crohns Dz and other problems as outlined below who presents to the ED c/o lower back pain that began last night. Pt reports that last night he developed back pain that he describes as 10/10 "achy " lower back pain. The pain radiates down buttock and into posterior thighs bilat. Pain does not radiate past the knees. Pt tried taking Tylenol and applying a heat pad at home which did offer some relief. Pt denies prior history of back problems or recent injury/fall. In retrospect, pt does recall that about an hour before the back pain started he lifted a very heavy bucket of coal that may have injured his back in some way. Pt has a history of Crohns Dz. He underwent a small bowel resection in 2012 and is currently on Imuran, Simponi and IVIG for maintenance therapy. 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 Pt was doing well however he had more weight loss in and went back on TPN April 14. Last colonoscopy was 05/13 which showed perianal ulcer/fistula that was improved from September. Pt follows with GI at [facility] (Dr. Booth). Pt denies fever/chills, diaphoresis, chest pain, palpitations, SOB, wheezing, abd pain, N/V, change in bowels, bladder issues, LE edema ,calf pain, lightheadedness/dizziness. In the ED, vitals are stable. Pt is afebrile with leukocytosis >32k. Lactic acid 1.6. elevated ESR/CRP. TSH 5. Lumbar Spine MRI negative for acute abnormalities. No evidence of abscess. Lumbar Spine Xray negative for fx. Abd/pelvis CT resolution of R gluteal fold abscess. No acute process. Pt is currently back pain free and will be admitted for further evaluation and treatment. Physical Exam (per Admitting): General Appearance: WD/WN, no apparent distress, + pertinent finding (Pt is sitting up in bed with at bedside ) Head: normocephalic, atraumatic Eyes: normal inspection ENT: hearing grossly normal Neck: supple Respiratory/Chest: chest non-tender, lungs clear, normal breath sounds, no respiratory distress, + pertinent finding (small area of erythema around PICC line; no drainage or tenderness noted) Cardiovascular: regular rate, rhythm, no edema, no murmur Abdomen/GI: normal bowel sounds, non tender, soft Back: normal inspection, no CVA tenderness, normal range of motion, + pertinent finding (no tenderness to palpation of bony processes or paraspinal muscles ) Extremities/Musculoskelatal: normal inspection, no calf tenderness, no pedal edema Neurologic/Psych: no motor/sensory deficits, alert, normal mood/affect, oriented x 3 Skin: normal color, warm/dry Hospital Course LEUKOCYTOSIS; UNCLEAR SOURCE pt is afebrile with stable vitals WBC >32k on presentation trended down to 24k today; lactic acid 1.6 PICC line site no signs of infection CT abd/pelvis no acute process and MRI lumbar spine no evidence of abscess or fluid collection cxr unremarkable c diff negative blood cultures-pending pt does not appear septic wants to be discharged f/u with pcp with repeat labs BACK PAIN pt presents with lower back pain rad to bilat thighs; no prior h/o back problems Lumbar Spine MRI: no acute process. no abscess or fluid collection received a dose of Decadron in er currently asymptomatic CROHN'S DZ s/p bowel resection in 2012 asymptomatic on Imuran, Simponi and IVIG Followup with GI (Dr. Booth) at [facility] Discharged home Total time spent on discharge = 35MINUTES This includes examination of the patient, discharge planning, medication reconciliation, and communication with other providers. Discharge Instructions Please take this sheet to every appointment for the next month Discharge Instructions Date of Service May 29, 2016. Admission Reason for Admission: Back Pain, Leukocytosis Discharge Discharge Diagnosis / Problem: BACK PAIN, LEUKOCYTOSIS Discharge Goals Goal(s): Decrease discomfort, Improve function Activity Recommendations Activity Limitations: resume your previous activity . Instructions / Follow-Up Instructions / Follow-Up FOLLOWUP WITH FAMILY DOCTOR ON May AT 8:50AM. FOLLOWUP LAB: CBC WITH PCP Current Hospital Diet Patient's current hospital diet: Regular Diet Discharge Diet Recommended Diet: Regular Diet Pending Studies Studies pending at discharge: no Medical Emergencies . Who to Call and When: Medical Emergencies: If at any time you feel your situation is an emergency, please call 911 immediately. . Non-Emergent Contact Non-Emergency issues call your: Primary Care Provider . . "Provider Documentation" section prepared by Anjum Keen. VTE Core Measure Inpt VTE Proph given/why not?: SCD's
--- NOTE | 2016-05-30 07:01 | EMERGENCY ROOM VISIT NOTE ---
ED Visit Note First contact with patient: 07:18 I have personally seen and evaluated the patient with the PA. I agree with the diagnosis and management decisions and have been personally involved in the case. Upon my evaluation the patient, physical examination is fairly unrevealing. The marked leukocytosis in addition to the patient's history of immunomodulators for treatment of Crohn's makes the presentation concerning. MRI of the lumbar spine is negative for acute pathology. CT scan abdomen and pelvis is negative for acute inflammatory process. The patient will be evaluated by the hospitalist service for further management. Please see Ericka Barbosa PA-C's notes for further details of the history, physical and visit.
[2016-06-09] MEDS ORDERED: ERGOCALCIFEROL 50,000 INTER.UNIT CAP PO ONE (09:00)
[2016-09-29] MEDS ORDERED: BUDE3CAP14 PO (02:41)
[2016-09-29] MEDS ORDERED: LOPE-5 PO (05:50)
[2016-09-29] MEDS ORDERED: ACET-1256 PO (05:51)
[2016-09-29] MEDS ORDERED: CHOL4POW3 PO (08:41)
[2016-09-29] MEDS ORDERED: TPN IV (08:59)
[2016-09-29] MEDS ORDERED: AZAT50TA17 PO (10:25)
[2016-09-29] MEDS ORDERED: IMMU1INJ IV. (10:34)
[2016-09-29] MEDS ORDERED: ZOLE5INJ IV (10:34)
[2016-09-29] MEDS ORDERED: CALC500C70 PO (12:48)
[2016-09-29] MEDS ORDERED: [UNRECOGNIZED DRUG - CODE] SC (17:42)
[2016-09-29] MEDS ORDERED: METR250T PO (17:42)
[2016-09-29] MEDS ORDERED: CYNI1000 IM (17:42)
== END 2016-05-29 13:09 | disposition home health service (06) ==
LOC: ENRESERVDT → ENRESERVTM → C.EDB 07:09 → C.MS2W 15:44
PROVIDERS: ADMIT Internal Medicine; ATTEND Internal Medicine
DX: M54.5 Low back pain (principal); K50.90 Crohn's disease, unspecified, without complications; Z79.899 Other long term (current) drug therapy; D72.829 Elevated white blood cell count, unspecified; Z83.3 Family history of diabetes mellitus

== ENCOUNTER 2016-07-07 08:32 | Emergency (ER) | payer BC ==
[~2016-07-07] VITALS: Ht 182.9 cm; Wt 83.1 kg
[~2016-07-07 08:32] MED LIST changes: +AZEL0.055 OP; +FLUT0.15 NAE; +HYDR25SU20 PR; -LORA5TAB3 PO; -PEDICHW18 PO
[2016-07-07 08:36] VITALS: TEMP 37.1; Ht 182.9 cm; Wt 83.1 kg
[2016-07-07] MEDS ORDERED: ASTN NAE (08:52)
--- NOTE | 2016-07-07 09:42 | EMERGENCY ROOM VISIT NOTE ---
History First contact with patient: 08:41 Chief Complaint: PICC LINE CLOTTED Stated Complaint: PICC LINE PULLED OUT 1/2'' History of Present Illness The patient is a 50 year old male who presents to the Emergency Room with complaints of a possible PICC line displacement. The patient reports that he noticed that his PICC line was pulled out approximately one half to 1 inch this morning while flushing the PICC line. The patient reports that he did do a lot of outdoor activities yesterday, but does not recall catching the PICC line on anything. The patient currently has a PICC line for TPN and history of Crohn's disease. He denies any pain about the PICC line site or axilla. He also denies any chest pain or shortness of breath. The patient reports that he did find a tick in the left axilla yesterday, and removed it. He is certain that the tick was only attached for a brief period of time. He does report mild discomfort about the tick site. Review of Systems 10 system review was performed and was negative except for pertinent positives and negatives as indicated in history of present illness Past Medical/Surgical History Medical Problems: (1) Crohn's disease (2) Long-term use of immunosuppressant medication Surgical Problems: (1) History of bowel resection Family History Cancer Diabetes mellitus Kidney disease Kidney stones Social History Smoking Status: Never Smoker Drug Use: none Marital Status: Housing Status: lives with family Occupation Status: employed Current/Historical Medications Scheduled Azathioprine (Imuran), 150 MG PO DAILY Azelastine Hcl (Astelin Nasal [place]), 2 SPRAYS FAMILIA BID Budesonide (Entocort Ec), 6 MG PO DAILY Calcium/Vitamin D (Os-Leonardo 500 Plus D), 1 TAB PO DAILY Cholestyramine (Cholestyramine), 8 GM PO BID Cyanocobalamin (Cyanocobalamin), 1,000 MCG IM WK Ergocalciferol (Vitamin D), 50,000 INTER.UNIT PO 2XWK Golimumab (Simponi), 100 MG SC [id number] Hydrocortisone Acetate (Rectal (Anusol-Hc), 25 MG MO HS Immune Globulin (Human) Iv (Bivigam), 1 DOSE IV. [id number] Loperamide Hcl (Imodium A-D), 6 MG PO TID Metronidazole (Flagyl), 250 MG PO UD Omeprazole (Prilosec), 20 MG PO BID Tpn Infusion (Tpn Infusion), 1 EA IV 6XWK Zoledronic Acid (Reclast), 5 MG IV YEARLY Scheduled PRN Acetaminophen (Tylenol), 1,000 MG PO UD PRN for Pain Miscellaneous Medications Fluticasone Propionate (Nasal) (Flonase Allergy Relief) Allergies Coded Allergies: Sulfa Antibiotics (Verified Allergy, Unknown, UNKNOWN, 07/07/16) Infliximab (Verified Adverse Reaction, Severe, " LUPUS SYMPTOMS", 07/07/16) Physical Exam Vital Signs Date Time Temp Pulse Resp B/P Pulse Ox O2 Delivery O2 Flow Rate FiO2 07/07/16 08:36 37.1 88 20 144/92 97 Room Air Physical Exam CONSTITUTIONAL: Healthy and well nourished. Alert and oriented X 3 with positive affect. Patient does not appear in any acute distress. HEENT: Normocephalic, atraumatic. Pupils equal, round and reactive. NECK: Full active range of motion without discomfort. RESPIRATORY: Clear to auscultation bilaterally with no wheezing, crackles, rhonchi or stridor. CARDIOVASCULAR: Regular rate and rhythm with no murmurs, rubs or gallops. MUSCULOSKELETAL: Full range of motion of all joints without discomfort. INTEGUMENTARY: No rash or other significant dermatologic conditions noted. Examination of the left upper extremity PICC site does not show any obvious soft tissue trauma or bleeding from the IV site. The patient has no tenderness to palpation along the course of the PICC line to the axilla. No ecchymosis noted. Examination of the left axilla does not show any area of erythema or induration at the tick bite site. NEUROLOGIC: No focal neurologic deficits noted. Medical Decision & Procedures ED Course Patient history and physical exam were performed. Nurse's notes were reviewed. IV team was consult and came to the emergency department for PICC line evaluation. I do not feel that the line needs repositioned. The patient was instructed to return for any further complications with the PICC line. The patient was instructed to watch for any increasing redness at the tick bite site. Because the tick has been removed so quickly, I explained that his risk for Lyme's disease is negligible. The patient was happy with plan of care, and discharged with his . Medical Decision Impression Primary Impression: PICC line evaluation Additional Impression: Tick bite of left axillary region Departure Information Referrals Jp Morales M.D. (PCP) Patient Instructions [facility] Problem Qualifiers Additional Impression: Tick bite of left axillary region Encounter type: initial encounter Qualified Codes: S40.862A - Insect bite ( nonvenomous) of left upper arm, initial encounter; W57.XXXA - Bitten or stung by nonvenomous insect and other nonvenomous arthropods, initial encounter
[2016-07-07 09:54] VITALS: BP 140/94; PULSE 82; O2SAT 99
[2016-09-29] MEDS ORDERED: BUDE1CAP6 PO (02:41)
[2016-09-29] MEDS ORDERED: LOPE-5 PO (05:50)
[2016-09-29] MEDS ORDERED: ACET-1256 PO (05:51)
[2016-09-29] MEDS ORDERED: CHOL4POW3 PO (08:41)
[2016-09-29] MEDS ORDERED: TPN IV (08:59)
[2016-09-29] MEDS ORDERED: AZAT50TA17 PO (10:25)
[2016-09-29] MEDS ORDERED: ZOLE5INJ IV (10:34)
[2016-09-29] MEDS ORDERED: IMMU1INJ IV. (10:34)
[2016-09-29] MEDS ORDERED: CALC500C70 PO (12:48)
[2016-09-29] MEDS ORDERED: CYNI1000 IM (17:42)
[2016-09-29] MEDS ORDERED: METR250T PO (17:42)
[2016-09-29] MEDS ORDERED: [UNRECOGNIZED DRUG - CODE] SC (17:42)
== END 2016-07-07 09:55 | disposition home or self-care (01) ==
LOC: C.EDB 08:33
DX: Z45.2 Encounter for adjustment and management of vascular access device (principal); S40.862A Insect bite (nonvenomous) of left upper arm, initial encounter; W57.XXXA Bitten or stung by nonvenomous insect and other nonvenomous arthropods, initial encounter; K50.90 Crohn's disease, unspecified, without complications; Z79.2 Long term (current) use of antibiotics; Z83.3 Family history of diabetes mellitus

== ENCOUNTER 2016-09-29 20:13 | Emergency (ER) | payer BC ==
[~2016-09-29] VITALS: Ht 182.9 cm; Wt 84.7 kg
[~2016-09-29 20:13] MED LIST changes: +ACET-1256 PO; +ASTN NAE; +AZAT50TA17 PO; -AZEL0.055 OP; +BUDE3CAP14 PO; +CALC500C70 PO; +CHOL4POW3 PO; +CYNI1000 IM; +IMMU1INJ IV.; +LOPE-5 PO; +METR250T PO; +TPN IV; +ZOLE5INJ IV; +[UNRECOGNIZED DRUG - CODE] SC
[2016-09-29 20:19] VITALS: TEMP 36.9; Ht 182.9 cm; Wt 84.7 kg
[2016-09-29] MEDS ORDERED: CEFTRIAXONE SOD INJ 1 GM ADDVIAL IV STA (20:58)
[2016-09-29] MEDS ORDERED: ERGO500037 PO (21:01)
--- NOTE | 2016-09-29 21:03 | EMERGENCY ROOM VISIT NOTE ---
History Report prepared by Dayana: Elizabeth Lackey Under the Supervision of: Dr. Joshua Viveros M.D. First contact with patient: 20:38 Chief Complaint: LEG PAIN,LEG INJURY Stated Complaint: LEG PAIN AND SWELLIG History of Present Illness The patient is a 51 year old male who presents to the Emergency Room with complaints of persistent right calf pain that began two days ago. She currently rates her discomfort as an 8/10 in severity. The patient states that three weeks ago he bumped into a pallet baudilio at work. He states that the area became erythematous and painful, but healed. The patient stats that Wednesday he was bent over both knees working in his garage all day and states that his pain developed Wednesday morning. He denies any known bug bite or going outdoors often. The patient states that he went to [employer] and was sent to the emergency department for further evaluation and treatment. He states that he gets Heparin through his PICC line every day. The patient states that he has a PICC line to receive total parental nutrition due to his Crohn's disease. He denies any chest pain, shortness of breath, or abdominal pain. Source of History: patient Onset: two days ago Position: other (right calf) Symptom Intensity: 8/10 Timing: other (persistent ) Associated Symptoms: No chest pain, No SOB, No abdominal pain Note: Associated symptoms: right calf erythema Review of Systems See HPI for pertinent positives & negatives. A total of 10 systems reviewed and were otherwise negative. Past Medical & Surgical Medical Problems: (1) Crohn's disease (2) Long-term use of immunosuppressant medication Surgical Problems: (1) History of bowel resection Family History Cancer Diabetes mellitus Kidney disease Kidney stones Social History Smoking Status: Never Smoker Drug Use: none Marital Status: Housing Status: lives with family Occupation Status: employed Current/Historical Medications Scheduled Azathioprine (Imuran), 150 MG PO DAILY Budesonide (Entocort Ec), 3 MG PO DAILY Calcium/Vitamin D (Os-Leonardo 500 Plus D), 1 TAB PO DAILY Cephalexin Monohydrate (Keflex), 1 CAP PO QID Cholestyramine (Cholestyramine), 8 GM PO BID Cyanocobalamin (Cyanocobalamin), 1,000 MCG IM WK Ergocalciferol (Vitamin D 27749 Unit), 50,000 UNIT PO 2XWK Fluticasone Propionate (Nasal) (Flonase Allergy Relief), 2 SPRAYS FAMILIA BID Golimumab (Simponi), 100 MG SC [id number] Immune Globulin (Human) Iv (Bivigam), 1 DOSE IV. [id number] Loperamide Hcl (Imodium A-D), 6 MG PO TID Metronidazole (Flagyl), 250 MG PO UD Tpn Infusion (Tpn Infusion), 1 EA IV 3XWK Zoledronic Acid (Reclast), 5 MG IV YEARLY Scheduled PRN Acetaminophen (Tylenol), 1,000 MG PO UD PRN for Pain Omeprazole (Prilosec), 20 MG PO BID PRN for Dyspepsia Allergies Coded Allergies: Sulfa Antibiotics (Verified Allergy, Unknown, UNKNOWN, 07/07/16) Infliximab (Verified Adverse Reaction, Severe, " LUPUS SYMPTOMS", 07/07/16) Physical Exam Vital Signs Date Time Temp Pulse Resp B/P (MAP) Pulse Ox O2 Delivery O2 Flow Rate FiO2 09/29/16 23:00 76 16 129/85 99 09/29/16 21:53 74 16 138/93 99 Room Air 09/29/16 20:19 36.9 90 18 137/90 98 Room Air Physical Exam GENERAL: Patient is a healthy-appearing well-nourished male HEAD: Normocephalic atraumatic EYES: Ocular movements intact pupils equal and react to light OROPHARYNX mucous membranes are moist no exudates present no erythema or edema present NECK: Supple no nuchal rigidity CHEST: Good equal expansion LUNGS: Clear and equal to auscultation CARDIAC: Normal S1 and S2 ABDOMEN: Soft nontender no guarding BACK: No CVA tenderness EXTREMITIES: Reddened area to the right calf that is 6 in x 4 in. Tender to touch, feels warm. Normal muscle strength in all groups no clubbing cyanosis or edema NEURO: Patient is following commands and answering questions appropriately. Alert and oriented x3 Cranial Nerves 2-12 grossly intact Medical Decision & Procedures ER Provider Diagnostic Interpretation: US results as stated below per my review and radiologist interpretation: ULTRASOUND RIGHT VENOUS DOPP LOWER EXT UNILAT CLINICAL HISTORY: Right lower extremity swelling COMPARISON STUDY: 04/15/2016 FINDINGS: Real-time and color flow Doppler imaging were performed. Flow was seen within the femoral, popliteal and calf veins with no intraluminal thrombus demonstrated. The saphenous vein is patent. There is a 12 x 20 x 8 mm right popliteal cyst. IMPRESSION: No evidence of right lower extremity DVT. Electronically signed by: Rikki Wall M.D. 09/29/2016 9:51 PM Dictated Date/Time: 09/29/2016 9:50 PM Laboratory Results 09/29/16 21:15 Red Blood Count 4.22, Mean Corpuscular Volume 90.8, Mean Corpuscular Hemoglobin 30.3, Mean Corpuscular Hemoglobin Concent 33.4, Mean Platelet Volume 8.8, Neutrophils (%) (Auto) 61.5, Lymphocytes (%) (Auto) 14.2, Monocytes (%) (Auto) 22.7, Eosinophils (%) (Auto) 1.2, Basophils (%) (Auto) 0.3, Neutrophils # (Auto ) 4.53, Lymphocytes # (Auto) 1.05, Monocytes # (Auto) 1.67, Eosinophils # (Auto ) 0.09, Basophils # (Auto) 0.02 09/29/16 21:15 Test 09/29/16 21:15 White Blood Count 7.37 K/uL (4.8-10.8) Red Blood Count 4.22 M/uL (4.7-6.1) Hemoglobin 12.8 g/dL (14.0-18.0) Hematocrit 38.3 % (42-52) Mean Corpuscular Volume 90.8 fL (80-100) Mean Corpuscular Hemoglobin 30.3 pg (25-34) Mean Corpuscular Hemoglobin Concent 33.4 g/dl (32-36) Platelet Count 288 K/uL (130-400) Mean Platelet Volume 8.8 fL (7.4-10.4) Neutrophils (%) (Auto) 61.5 % Lymphocytes (%) (Auto) 14.2 % Monocytes (%) (Auto) 22.7 % Eosinophils (%) (Auto) 1.2 % Basophils (%) (Auto) 0.3 % Neutrophils # (Auto) 4.53 K/uL (1.4-6.5) Lymphocytes # (Auto) 1.05 K/uL (1.2-3.4) Monocytes # (Auto) 1.67 K/uL (0.11-0.59) Eosinophils # (Auto) 0.09 K/uL (0-0.5) Basophils # (Auto) 0.02 K/uL (0-0.2) RDW Standard Deviation 46.4 fL (36.4-46.3) RDW Coefficient of Variation 14.0 % (11.5-14.5) Immature Granulocyte % (Auto) 0.1 % Immature Granulocyte # (Auto) 0.01 K/uL (0.00-0.02) Anion Gap 4.0 mmol/L (3-11) Est Creatinine Clear Calc Drug Dose 98.1 ml/min Estimated GFR () 102.0 Estimated GFR (Non- 88.0 BUN/Creatinine Ratio 12.1 (10-20) Calcium Level 9.2 mg/dl (8.5-10.1) Lyme Disease IgG Antibody NEG (NEG) Labs reviewed by ED physician. Medications Administered Medications (Trade) Dose Ordered Sig/Griselda Route Start Time Stop Time Status Last Admin Dose Admin Ceftriaxone Sodium (Rocephin Inj) 1 gm NOW STAT IV 09/29/16 20:58 09/29/16 21:01 DC 09/29/16 21:53 1 GM Acetaminophen 100 ml @ 400 mls/hr NOW STAT IV 09/29/16 21:56 09/29/16 22:10 DC 09/29/16 22:18 400 MLS/HR Cephalexin Monohydrate (Keflex 500MG Home Pack) 1 homepack NOW ONCE PO 09/29/16 22:45 09/29/16 22:46 DC 09/29/16 22:55 1 HOMEPACK ED Course 2053: Past medical records reviewed. The patient was evaluated in room A2. A complete history and physical examination was performed. 2057: Ordered Rocephin Inj 1 gm IV. 2155: Ordered Acetaminophen 100 ml @ 400 mls/hr protocol IV. 2234: I reevaluated the patient and he is resting comfortably. I discussed all the exam findings with him and I discussed the treatment plan. He verbalized complete understanding and agreement. He is ready to go home. 2244: Ordered Keflex 500 mg Home pack 1 homepack PO. Medical Decision Differential diagnosis: Etiologies such as DVT, musculoskeletal, infection, joint effusion, trauma, lymphedema, idiopathic, CHF, as well as others were entertained. Medication Reconciliation: I attest that I have personally reviewed the patient' s current medication list Blood Pressure Screening: Patient was found to have an elevated blood pressure and was referred to their primary care doctor for recheck and further treatment This is a 51-year-old male who presents emergency department complaining of rash to his right lower extremity. The patient was sent for an ultrasound of this right lower 70. This did not show any evidence of a DVT. The patient does not have an elevation in his white blood count cell count. There is no evidence of abscess on examination. I will start the patient on Rocephin as well as Keflex. I cautioned the patient to keep an eye on this cellulitis and follow-up this primary care physician. I Lyme titer was drawn and found to be equivocal. We will contact the patient if this further warrants treatment. Impression Primary Impression: Cellulitis Scribe Attestation The scribe's documentation has been prepared under my direction and personally reviewed by me in its entirety. I confirm that the note above accurately reflects all work, treatment, procedures, and medical decision making performed by me. Departure Information Dispostion Home / Self-Care Prescriptions Cephalexin Monohydrate (Keflex) 500 Mg Cap 1 CAP PO QID for 10 Days, #40 CAP Prov: Joshua Viveros MD 09/29/16 Referrals Jp Morales M.D. (PCP) Forms HOME CARE DOCUMENTATION FORM, IMPORTANT VISIT INFORMATION, School Instructions, Work Instructions Patient Instructions Cellulitis - [facility], My [facility] Additional Instructions You have been examined and treated today on an emergency basis only. This is not a substitute for, or an effort to provide, complete comprehensive medical care. It is impossible to recognize and treat all injuries or illnesses in a single emergency department visit. It is therefore important that you follow up closely with Dr Morales. Call as soon as possible for an appointment. Thank you for your time and consideration. I look forward to speaking with you again soon. Please don't hesitate to call us if you have any questions. Problem Qualifiers Primary Impression: Cellulitis Site of cellulitis: extremity Site of cellulitis of extremity: lower extremity Laterality: right Qualified Codes: L03.115 - Cellulitis of right lower limb
--- NOTE | 2016-09-29 21:52 | DIAGNOSTIC IMAGING REPORT ---
ULTRASOUND RIGHT VENOUS DOPP LOWER EXT UNILAT CLINICAL HISTORY: Right lower extremity swelling COMPARISON STUDY: 04/15/2016 FINDINGS: Real-time and color flow Doppler imaging were performed. Flow was seen within the femoral, popliteal and calf veins with no intraluminal thrombus demonstrated. The saphenous vein is patent. There is a 12 x 20 x 8 mm right popliteal cyst. IMPRESSION: No evidence of right lower extremity DVT. Electronically signed by: Rikki Wall M.D. 09/29/2016 9:51 PM Dictated Date/Time: 09/29/2016 9:50 PM
[2016-09-29 21:55] LABS: BASO % 0.3 %; BASO ABS # 0.02 K/uL (0-0.2); COMPLETE YES; EOS % 1.2 %; HEMATOCRIT 38.3 % (42-52); IG% 0.1 %; LYMPH % 14.2 %; LYMPH ABS # 1.05 K/uL (1.2-3.4); MEAN CELL VOLUME 90.8 fL (80-100); MEAN CORPUSCULAR HEMOGLOBIN 30.3 pg (25-34); MEAN CORPUSCULAR HGB CONC 33.4 g/dl (32-36); MEAN PLATELET VOLUME 8.8 fL (7.4-10.4); MONO % 22.7 %; NEUT % 61.5 %; PLATELET COUNT 288 K/uL (130-400); RED BLOOD COUNT 4.22 M/uL (4.7-6.1); WHITE BLOOD COUNT 7.37 K/uL (4.8-10.8)
[2016-09-29] MEDS ORDERED: ACETAMINOPHEN IV 100 ML IV STA (21:56)
[2016-09-29 22:18] LABS: BUN/CREATININE RATIO 12.1 (10-20); CALCIUM 9.2 mg/dl (8.5-10.1); POTASSIUM 3.8 mmol/L (3.5-5.1)
[2016-09-29] MEDS ORDERED: CEPH500C PO (22:36)
[2016-09-29] MEDS ORDERED: CEPHALEXIN 500MG HOME PACK 1 EA BTL PO ONE (22:45)
[2016-09-29 22:49] LABS: LYME DISEASE AB IGG NEG (NEG)
[2016-09-29 22:51] LABS: LYME DISEASE AB IGM EQUIVOCAL (NEG)
[2016-09-29 23:00] VITALS: BP 129/85; PULSE 76; O2SAT 99
[2016-10-05 22:33] LABS: 18KDIGG BAND NONREACTIVE (NONREACTIVE); 23KDIGG BAND NONREACTIVE (NONREACTIVE); 23KDIGM BAND REACTIVE (NONREACTIVE); 28KDIGG BAND NONREACTIVE (NONREACTIVE); 30KDIGG BAND NONREACTIVE (NONREACTIVE); 39KDIGG BAND NONREACTIVE (NONREACTIVE); 39KDIGM BAND NONREACTIVE (NONREACTIVE); 41KDIGG BAND REACTIVE (NONREACTIVE); 41KDIGM BAND REACTIVE (NONREACTIVE); 45KDIGG BAND NONREACTIVE (NONREACTIVE); 58KDIGG BAND NONREACTIVE (NONREACTIVE); 66KDIGG BAND REACTIVE (NONREACTIVE); 93KDIGG BAND NONREACTIVE (NONREACTIVE)
[2016-10-07 17:40] LABS: EHRLICHIA CHAFF IGG AB <1:64 (<1:64); EHRLICHIA CHAFF IGM AB <1:20 (<1:20)
== END 2016-09-29 22:56 | disposition home or self-care (01) ==
LOC: C.EDB 20:16 → C.EDA 22:56
DX: L03.115 Cellulitis of right lower limb (principal); K50.90 Crohn's disease, unspecified, without complications; Z83.3 Family history of diabetes mellitus

== ENCOUNTER 2016-12-27 08:24 | Inpatient (IN) | payer BC ==
[~2016-12-27] VITALS: Ht 182.9 cm; Wt 82.9 kg
[~2016-12-27 08:24] MED LIST changes: -ASTN NAE; +ERGO500037 PO; -HYDR25SU20 PR; -VTMD PO
--- NOTE | 2016-12-27 09:16 | EMERGENCY ROOM VISIT NOTE ---
History Report prepared by Dayana: Andrea Og Under the Supervision of: Dr. Noemi Chicas M.D. First contact with patient: 08:55 Chief Complaint: CHEST PAIN Stated Complaint: CHEST PAINS, LOSS OF APPETITE History of Present Illness The patient is a 51 year old male who presents to the Emergency Room with complaints of constant "heart burn like" chest pain beginning yesterday morning. He states that his chest pain has been improving throughout the day but was worse this morning. He notes that lying down makes his chest pain worse and that heart burn medication did not improve his symptoms. The patient states that he was also experiencing back pain with his chest pain yesterday that did not seem to go through to his back from his chest. He notes that his back pain improved since yesterday, but that his chest pain has worsened. He also reports symptoms of mild nausea and loss of appetite. He denies any SOB or fatigue. The patient states that he has a PICC line inserted for his Crohn's disease and has received TPN 3 days a week since March. He notes no previous history of cardiac issues, but notes that his father had a pacemaker inserted this year. Source of History: patient Onset: yesterday Position: chest Quality: other ("heart burn like") Timing: constant Modifying Factors (Worsening): other (lying down) Associated Symptoms: + nausea (mild), No SOB, No fatigue Note: he notes a loss of appetite Review of Systems See HPI for pertinent positives & negatives. A total of 10 systems reviewed and were otherwise negative. Past Medical & Surgical Medical Problems: (1) Crohn's disease (2) GERD (gastroesophageal reflux disease) (3) History of Lyme disease (4) History of urinary calculi (5) Long-term use of immunosuppressant medication (6) Malnutrition Surgical Problems: (1) History of bowel resection (2) Status post cystoscopy Family History Cancer Diabetes mellitus Kidney disease Kidney stones Social History Smoking Status: Never Smoker Drug Use: none Marital Status: Housing Status: lives with family Occupation Status: employed Current/Historical Medications Scheduled Azathioprine (Imuran), 150 MG PO DAILY Budesonide (Entocort Ec), 3 MG PO DAILY Calcium/Vitamin D (Os-Leonardo 500 Plus D), 1 TAB PO DAILY Cholestyramine (Cholestyramine), 6 GM PO BID Cyanocobalamin (Cyanocobalamin), 1,000 MCG IM WK Ergocalciferol (Vitamin D 34409 Unit), 50,000 UNIT PO 2XWK Fluticasone Propionate (Nasal) (Flonase Allergy Relief), 2 SPRAYS FAMILIA BID Golimumab (Simponi), 100 MG SC [id number] Immune Globulin (Human) Iv (Bivigam), 1 DOSE IV. [id number] Loperamide Hcl (Imodium A-D), 6 MG PO TID Metronidazole (Flagyl), 250 MG PO UD Tpn Infusion (Tpn Infusion), 1 EA IV 3XWK Zoledronic Acid (Reclast), 5 MG IV YEARLY Scheduled PRN Acetaminophen (Tylenol), 1,000 MG PO UD PRN for Pain Omeprazole (Prilosec), 20 MG PO BID PRN for Dyspepsia Allergies Coded Allergies: Sulfa Antibiotics (Verified Allergy, Unknown, UNKNOWN, 12/27/16) Infliximab (Verified Adverse Reaction, Severe, " LUPUS SYMPTOMS", 12/27/16 ) Physical Exam Vital Signs Date Time Temp Pulse Resp B/P (MAP) Pulse Ox O2 Delivery O2 Flow Rate FiO2 12/27/16 12:15 36.8 76 16 137/76 96 Room Air 12/27/16 11:05 83 21 12/27/16 11:00 115/78 12/27/16 10:54 71 20 12/27/16 10:30 117/79 12/27/16 10:24 74 17 12/27/16 10:00 114/79 12/27/16 09:54 77 19 12/27/16 09:32 77 137/83 12/27/16 09:30 137/83 12/27/16 09:30 Room Air 12/27/16 09:24 80 19 12/27/16 09:00 112/80 12/27/16 08:54 83 24 12/27/16 08:45 80 12/27/16 08:43 125/80 12/27/16 08:40 96 Room Air 12/27/16 08:26 36.8 93 20 123/87 98 Room Air Physical Exam Vital signs reviewed. General: Generally well-appearing, in no significant distress. PICC line HEENT: No scleral icterus, PERRLA, neck supple. Atraumatic. Cardiovascular: Regular rate and rhythm, no extra sounds. Pulmonary: Clear to auscultation bilaterally, normal work of breathing. Abdomen: Soft, nontender, nondistended, positive bowel sounds. Musculoskeletal: Atraumatic, no peripheral edema, nontender anterior chest wall , no peripheral edema. Neurologic: Patient awake alert and oriented x 3 Skin: Warm, dry, no rash Medical Decision & Procedures ER Provider Diagnostic Interpretation: Radiology results as stated below per my review and radiologist interpretation: CHEST ONE VIEW PORTABLE HISTORY: Atypical chest pain, back pain COMPARISON: Chest 05/28/2016. FINDINGS: The lungs are clear. Cardiac silhouette is normal in size. No pleural effusions. No pneumothorax. The left PICC terminates in the distal SVC. IMPRESSION: No acute process. Electronically signed by: Richie Casper M.D. 12/27/2016 9:53 AM CHEST CTA for AORTIC DISSECTION CT DOSE: 793.42 mGy.cm HISTORY: Mid chest and back pain. Assess for dissection. TECHNIQUE: Multiaxial CT images of the chest were performed both before and after the intravenous administration of contrast to evaluate the aorta. Maximal intensity projection images were also obtained. A dose lowering technique was utilized adhering to the principles of ALARA. COMPARISON STUDY: None. FINDINGS: Noncontrast imaging through the chest shows no evidence for an intramural hematoma within the thoracic aorta. Normal caliber thoracic aorta with no evidence for dissection. The main pulmonary arteries are patent. A left PICC terminates in the SVC. No pleural or pericardial effusions. The heart is normal in size. No mediastinal or hilar lymphadenopathy. The visualized liver, spleen, and adrenal glands are unremarkable. No pneumothorax. Bibasilar linear densities consistent with subsegmental atelectasis. No focal lung consolidations to suggest pneumonia. The central airways are patent. IMPRESSION: No evidence for an aortic dissection. Electronically signed by: Richie Casper M.D. 12/27/2016 12:24 PM Laboratory Results 12/27/16 08:40 Red Blood Count 4.88, Mean Corpuscular Volume 87.9, Mean Corpuscular Hemoglobin 28.7, Mean Corpuscular Hemoglobin Concent 32.6, Mean Platelet Volume 8.8, Neutrophils (%) (Auto) 61.1, Lymphocytes (%) (Auto) 16.4, Monocytes (%) (Auto) 21.7, Eosinophils (%) (Auto) 0.3, Basophils (%) (Auto) 0.4, Neutrophils # (Auto ) 4.78, Lymphocytes # (Auto) 1.28, Monocytes # (Auto) 1.70, Eosinophils # (Auto ) 0.02, Basophils # (Auto) 0.03 12/27/16 08:40 Test 12/27/16 08:40 12/27/16 09:19 White Blood Count 7.82 K/uL (4.8-10.8) Red Blood Count 4.88 M/uL (4.7-6.1) Hemoglobin 14.0 g/dL (14.0-18.0) Hematocrit 42.9 % (42-52) Mean Corpuscular Volume 87.9 fL (80-100) Mean Corpuscular Hemoglobin 28.7 pg (25-34) Mean Corpuscular Hemoglobin Concent 32.6 g/dl (32-36) Platelet Count 244 K/uL (130-400) Mean Platelet Volume 8.8 fL (7.4-10.4) Neutrophils (%) (Auto) 61.1 % Lymphocytes (%) (Auto) 16.4 % Monocytes (%) (Auto) 21.7 % Eosinophils (%) (Auto) 0.3 % Basophils (%) (Auto) 0.4 % Neutrophils # (Auto) 4.78 K/uL (1.4-6.5) Lymphocytes # (Auto) 1.28 K/uL (1.2-3.4) Monocytes # (Auto) 1.70 K/uL (0.11-0.59) Eosinophils # (Auto) 0.02 K/uL (0-0.5) Basophils # (Auto) 0.03 K/uL (0-0.2) RDW Standard Deviation 46.5 fL (36.4-46.3) RDW Coefficient of Variation 14.4 % (11.5-14.5) Immature Granulocyte % (Auto) 0.1 % Immature Granulocyte # (Auto) 0.01 K/uL (0.00-0.02) Prothrombin Time 10.9 SECONDS (9.0-12.0) Prothromb Time International Ratio 1.0 (0.9-1.1) Anion Gap 6.0 mmol/L (3-11) Est Creatinine Clear Calc Drug Dose 81.7 ml/min Estimated GFR () 81.8 Estimated GFR (Non- 70.6 BUN/Creatinine Ratio 16.2 (10-20) Calcium Level 9.2 mg/dl (8.5-10.1) Total Bilirubin 1.0 mg/dl (0.2-1) Direct Bilirubin 0.3 mg/dl (0-0.2) Aspartate Amino Transf (AST/SGOT) 25 U/L (15-37) Alanine Aminotransferase (ALT/SGPT) 25 U/L (12-78) Alkaline Phosphatase 114 U/L (45-117) Total Protein 9.4 gm/dl (6.4-8.2) Albumin 3.9 gm/dl (3.4-5.0) Lipase 217 U/L (73-393) Bedside D-Dimer > 450 ng/mlFEU (0-450) Bedside Troponin I 0.180 ng/ml (0-0.045) Laboratory results per my review. Medications Administered Medications (Trade) Dose Ordered Sig/Griselda Route Start Time Stop Time Status Last Admin Dose Admin Sodium Chloride 1,000 ml @ 125 mls/hr Q8H STAT IV 12/27/16 10:57 12/27/16 13:46 DC 12/27/16 11:39 125 MLS/HR Sodium Chloride 250 ml @ 999 mls/hr Q16M STAT IV 12/27/16 10:57 12/27/16 11:12 DC 12/27/16 11:39 999 MLS/HR Heparin Sodium/ Dextrose (Heparin 25,000 Unit/500ml D5W) 25,000 unit STK-MED ONCE .ROUTE 12/27/16 11:13 12/27/16 11:14 DC 12/27/16 12:30 25,000 UNIT Heparin Sodium (Porcine) (Heparin Sq 5000 Unit/0.5ml) 5,000 unit STK-MED ONCE .ROUTE 12/27/16 11:13 12/27/16 11:14 DC 12/27/16 12:28 4,000 UNIT ECG Indication: chest pain Rate (beats per minute): 86 Rhythm: normal sinus Findings: left axis deviation, other (previous inferior infarct) Comparison ECG Date: 09/16/2015 Change: when compared to 09/16/2015 ST was impressed in the inferior leads ED Course 0855: Past medical records reviewed. The patient was evaluated in room B4. A complete history and physical examination was performed. 1057: Sodium Chloride 250 ml @ 999 mls/hr IV, Sodium Chloride 1000 ml @ 125 mls/ hr IV, Dextrose 1 ea 1230: Upon reevaluation, the patient is resting comfortably. I discussed laboratory and radiographic results with him. He verbalized agreement of the treatment plan. I spoke with Dr. Hawthorne of the [facility]. The patient will be evaluated for further management and care. Medical Decision Differential diagnosis: Etiologies such as cardiac ischemia, aortic dissection, pulmonary embolism, pneumonia, pneumothorax, musculoskeletal, infections, pericarditis, myocarditis , esophageal rupture, gastrointestinal, as well as others were entertained. This patient was evaluated and appeared to be in no significant distress. IV access was obtained and laboratory work was drawn. The patient was placed on the monitor technician and found to be in a normal sinus rhythm. EKG reveals a normal sinus rhythm with inferior ST changes. Laboratory work reveals a point- of-care troponin of 0.18. Chest x-ray is clear. D-dimer is elevated and given the patient's chest pain with radiation to the back and shoulders, a CT angiogram was ordered. This study is negative. Given the above findings, I'm concerned regarding acute coronary syndrome. I did speak with Dr. Seymour cardiology as well as Dr. Croft of internal medicine. Patient was started on a heparin drip and will be evaluated for further management. He is aware of the plan and agrees. Medication Reconcilliation Current Medication List: was personally reviewed by me Blood Pressure Screening Patient's blood pressure: Normal blood pressure Consults Time Called: 1220 Consulting Physician: Dr. Hawthorne -[facility] Returned Call: 1230 I reviewed the patient's case with Dr. Hawthorne of [facility]. He will evaluate the patient for further management. Impression Primary Impression: Substernal chest pain Additional Impression: Elevated troponin level Scribe Attestation The scribe's documentation has been prepared under my direction and personally reviewed by me in its entirety. I confirm that the note above accurately reflects all work, treatment, procedures, and medical decision making performed by me. Departure Information Dispostion Being Evaluated By Hospitalist Referrals Jp Morales M.D. (PCP) Patient Instructions My [facility] Problem Qualifiers
[2016-12-27 09:23] LABS: BASO % 0.4 %; BASO ABS # 0.03 K/uL (0-0.2); COMPLETE YES; EOS % 0.3 %; HEMATOCRIT 42.9 % (42-52); IG% 0.1 %; LYMPH % 16.4 %; LYMPH ABS # 1.28 K/uL (1.2-3.4); MEAN CELL VOLUME 87.9 fL (80-100); MEAN CORPUSCULAR HEMOGLOBIN 28.7 pg (25-34); MEAN CORPUSCULAR HGB CONC 32.6 g/dl (32-36); MEAN PLATELET VOLUME 8.8 fL (7.4-10.4); MONO % 21.7 %; NEUT % 61.1 %; PLATELET COUNT 244 K/uL (130-400); RED BLOOD COUNT 4.88 M/uL (4.7-6.1); WHITE BLOOD COUNT 7.82 K/uL (4.8-10.8)
[2016-12-27 09:37] LABS: ALKALINE PHOSPHATASE 114 U/L (45-117); ALT/SGPT 25 U/L (12-78); AST/SGOT 25 U/L (15-37); BLOOD UREA NITROGEN 19 mg/dl (7-18); BUN/CREATININE RATIO 16.2 (10-20); CALCIUM 9.2 mg/dl (8.5-10.1); CARBON DIOXIDE 28 mmol/L (21-32); CHLORIDE 101 mmol/L (98-107); GLUCOSE 128 mg/dl (70-99); POTASSIUM 3.7 mmol/L (3.5-5.1); SODIUM 136 mmol/L (136-145)
--- NOTE | 2016-12-27 09:54 | DIAGNOSTIC IMAGING REPORT ---
CHEST ONE VIEW PORTABLE HISTORY: Atypical chest pain, back pain COMPARISON: Chest 05/28/2016. FINDINGS: The lungs are clear. Cardiac silhouette is normal in size. No pleural effusions. No pneumothorax. The left PICC terminates in the distal SVC. IMPRESSION: No acute process. Electronically signed by: Richie Casper M.D. 12/27/2016 9:53 AM Dictated Date/Time: 12/27/2016 9:51 AM
[2016-12-27] MEDS ORDERED: SODIUM CHLORIDE 0.9% 1000ML 1,000 ML IV STA (10:57)
[2016-12-27] MEDS ORDERED: SODIUM CHLORIDE 0.9% 250ML 250 ML IV STA (10:57)
[2016-12-27] MEDS ORDERED: HEPARIN 25000 UNIT/500 ML D5W ONE (11:13)
[2016-12-27] MEDS ORDERED: HEPARIN SOD 5000 UNIT/0.5 ML CARP ONE (11:13)
[2016-12-27] MEDS ORDERED: OPTIRAY 320 IV PRN (11:15)
[2016-12-27 12:15] VITALS: BP 137/76; PULSE 76; TEMP 36.8; O2SAT 96; Ht 182.9 cm; Wt 82.9 kg
--- NOTE | 2016-12-27 12:25 | DIAGNOSTIC IMAGING REPORT ---
CHEST CTA for AORTIC DISSECTION CT DOSE: 793.42 mGy.cm HISTORY: Mid chest and back pain. Assess for dissection. TECHNIQUE: Multiaxial CT images of the chest were performed both before and after the intravenous administration of contrast to evaluate the aorta. Maximal intensity projection images were also obtained. A dose lowering technique was utilized adhering to the principles of ALARA. COMPARISON STUDY: None. FINDINGS: Noncontrast imaging through the chest shows no evidence for an intramural hematoma within the thoracic aorta. Normal caliber thoracic aorta with no evidence for dissection. The main pulmonary arteries are patent. A left PICC terminates in the SVC. No pleural or pericardial effusions. The heart is normal in size. No mediastinal or hilar lymphadenopathy. The visualized liver, spleen, and adrenal glands are unremarkable. No pneumothorax. Bibasilar linear densities consistent with subsegmental atelectasis. No focal lung consolidations to suggest pneumonia. The central airways are patent. IMPRESSION: No evidence for an aortic dissection. Electronically signed by: Richie Casper M.D. 12/27/2016 12:24 PM Dictated Date/Time: 12/27/2016 12:17 PM
--- NOTE | 2016-12-27 12:29 | History and Physical ---
History & Physical Date & Time of Service: Dec 27, 2016 at 12:29 . Chief Complaint: chest pain . Primary Care Physician: Jp Morales M.D. . History of Present Illness Source: patient, family, clinic records, hospital records 51 YO male followed by Dr. Morales for Family Medicine and Dr. Booth for GI ( [facility], [facility]). History of Crohn's disease and other problems noted below. Crohn's disease most recently managed with golimumab, IVIg, budesonide. Status post resection of most of his small bowel. On TPN 3 nights a week to maintain nutritional status. Developed chest pain yesterday at rest. Chest pain described as midsternal pressure / burning that radiated to his back. [place] somewhat diaphoretic. No dyspnea, nausea, vomiting. Thought that he was having some heartburn, so he tried cimetidine without benefit. CP not worse with exertion, sometimes worse in supine position. The discomfort has been waxing and waning since yesterday. No history of heart disease. Stress echo in 2007 did not show any evidence of stress-induced ischemia. No history hypertension, dyslipidemia, diabetes, smoking. No family history of premature ischemic heart disease. . Past Medical/Surgical History Chronic and Resolved Medical Problems: (1) Crohn's disease Permanent Comment: s/p small bowel resection Status: Chronic (2) GERD (gastroesophageal reflux disease) Status: Chronic (3) History of Lyme disease Status: Chronic (4) History of urinary calculi Status: Chronic (5) Long-term use of immunosuppressant medication Permanent Comment: Simponi, Imuran, IVIG Status: Chronic (6) Malnutrition Status: Chronic Surgical Problems: (1) History of bowel resection Permanent Comment: 2/3rds small bowel removed 2* crohns Status: Chronic (2) Status post cystoscopy Permanent Comment: with ureteral stent Status: Chronic . Family History FATHER Pacemaker MOTHER Pancreatic cancer BROTHER Diabetes mellitus Sarcoidosis Social History Smoking Status: Never Smoker Alcohol Use: none Drug Use: none Marital Status: Housing status: lives with family Occupational Status: employed Immunizations History of Influenza Vaccine: Yes History of Tetanus Vaccine?: UNSURE History of Pneumococcal: Yes History of Hepatitis B Vaccine: Unknown Multi-Drug Resistant Organisms History of MDRO: No Allergies Coded Allergies: Sulfa Antibiotics (Verified Allergy, Unknown, UNKNOWN, 12/27/16) Infliximab (Verified Adverse Reaction, Severe, " LUPUS SYMPTOMS", 12/27/16 ) Home Medications Scheduled Azathioprine (Imuran), 150 MG PO DAILY Budesonide (Entocort Ec), 3 MG PO DAILY Calcium/Vitamin D (Os-Leonardo 500 Plus D), 1 TAB PO DAILY Cholestyramine (Cholestyramine), 6 GM PO BID Cyanocobalamin (Cyanocobalamin), 1,000 MCG IM WK Ergocalciferol (Vitamin D 23125 Unit), 50,000 UNIT PO 2XWK Fluticasone Propionate (Nasal) (Flonase Allergy Relief), 2 SPRAYS FAMILIA BID Golimumab (Simponi), 100 MG SC [id number] Immune Globulin (Human) Iv (Bivigam), 1 DOSE IV. [id number] Loperamide Hcl (Imodium A-D), 6 MG PO TID Metronidazole (Flagyl), 250 MG PO UD Tpn Infusion (Tpn Infusion), 1 EA IV [id number] Zoledronic Acid (Reclast), 5 MG IV YEARLY Scheduled PRN Acetaminophen (Tylenol), 1,000 MG PO UD PRN for Pain Omeprazole (Prilosec), 20 MG PO BID PRN for Dyspepsia Review of Systems Constitutional- no fever; no weight loss Eyes- no acute visual changes ENT- chronic sinus drainage; no pharyngitis Pulmonary- no cough, no shortness of breath Cardiac- per HPI GI- chronic loose stools; no nausea, no vomiting, no melena, no hematochezia - no dysuria, no hematuria Musculoskeletal- no arthralgias, no myalgias Derm- no rashes, no new skin lesions, no changing skin lesions Hematologic- no unusual bruising, no unusual bleeding Lymphatics- no adenopathy Endocrine- no polyuria or polydipsia Neuro- sinus headaches . Physical Exam Vital Signs Date Time Temp Pulse Resp B/P (MAP) Pulse Ox O2 Delivery O2 Flow Rate FiO2 12/27/16 11:00 115/78 12/27/16 10:54 71 20 12/27/16 10:30 117/79 12/27/16 10:24 74 17 12/27/16 10:00 114/79 12/27/16 09:54 77 19 12/27/16 09:32 77 137/83 12/27/16 09:30 137/83 10/15/17 09:30 Room Air 12/27/16 09:24 80 19 12/27/16 09:00 112/80 12/27/16 08:54 83 24 12/27/16 08:45 80 12/27/16 08:43 125/80 12/27/16 08:40 96 Room Air 12/27/16 08:26 36.8 93 20 123/87 98 Room Air General Appearance: WD/WN, no apparent distress Head: normocephalic, atraumatic Eyes: normal inspection, PERRL, EOMI, sclerae normal (eyelids and conjunctivae normal) Neck: supple, no adenopathy, thyroid normal, trachea midline Respiratory/Chest: lungs clear, no respiratory distress, no accessory muscle use Cardiovascular: regular rate, rhythm, no edema, no gallop, no JVD, no murmur, normal peripheral pulses (radial and pedal pulses intact / symmetric) Abdomen/GI: normal bowel sounds, non tender, soft, no organomegaly, no pulsatile mass Extremities/Musculoskelatal: normal inspection, no calf tenderness, normal capillary refill, no pedal edema, + pertinent finding (PICC LUE) Neurologic/Psych: 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 specialist II-XII nml as tested (PERRL, EOMI, no facial palsy, no dysarthria), no motor/sensory deficits (motor strength grossly intact), alert, normal mood/affect, normal reflexes (patellar DTR's 2/2), oriented x 3 Skin: normal color, no rash, + diaphoresis (mild) Lymphatic: no adenopathy (cervical, axillary) Diagnostics Laboratory Results Results Past 24 Hours Test 12/27/16 08:40 12/27/16 09:19 Range/Units White Blood Count 7.82 4.8-10.8 K/uL Red Blood Count 4.88 4.7-6.1 M/uL Hemoglobin 14.0 14.0-18.0 g/dL Hematocrit 42.9 42-52 % Mean Corpuscular Volume 87.9 80-100 fL Mean Corpuscular Hemoglobin 28.7 25-34 pg Mean Corpuscular Hemoglobin Concent 32.6 32-36 g/dl Platelet Count 244 130-400 K/uL Mean Platelet Volume 8.8 7.4-10.4 fL Neutrophils (%) (Auto) 61.1 % Lymphocytes (%) (Auto) 16.4 % Monocytes (%) (Auto) 21.7 % Eosinophils (%) (Auto) 0.3 % Basophils (%) (Auto) 0.4 % Neutrophils # (Auto) 4.78 1.4-6.5 K/uL Lymphocytes # (Auto) 1.28 1.2-3.4 K/uL Monocytes # (Auto) 1.70 0.11-0.59 K/uL Eosinophils # (Auto) 0.02 0-0.5 K/uL Basophils # (Auto) 0.03 0-0.2 K/uL RDW Standard Deviation 46.5 36.4-46.3 fL RDW Coefficient of Variation 14.4 11.5-14.5 % Immature Granulocyte % (Auto) 0.1 % Immature Granulocyte # (Auto) 0.01 0.00-0.02 K/uL Sodium Level 136 136-145 mmol/L Potassium Level 3.7 3.5-5.1 mmol/L Chloride Level 101 98-107 mmol/L Carbon Dioxide Level 28 21-32 mmol/L Anion Gap 6.0 3-11 mmol/L Blood Urea Nitrogen 19 7-18 mg/dl Creatinine 1.20 0.60-1.40 mg/dl Est Creatinine Clear Calc Drug Dose 81.7 ml/min Estimated GFR () 81.8 Estimated GFR (Non- 70.6 BUN/Creatinine Ratio 16.2 10-20 Random Glucose 128 70-99 mg/dl Calcium Level 9.2 8.5-10.1 mg/dl Total Bilirubin 1.0 0.2-1 mg/dl Direct Bilirubin 0.3 0-0.2 mg/dl Aspartate Amino Transf (AST/SGOT) 25 15-37 U/L Alanine Aminotransferase (ALT/SGPT) 25 12-78 U/L Alkaline Phosphatase 114 45-117 U/L Total Creatine Kinase 135 39-308 U/L Creatine Kinase MB < 0.5 0.5-3.6 ng/ml Creatine Kinase MB Ratio 0-3.0 Total Protein 9.4 6.4-8.2 gm/dl Albumin 3.9 3.4-5.0 gm/dl Lipase 217 73-393 U/L Bedside D-Dimer > 450 0-450 ng/mlFEU Bedside Troponin I 0.180 0-0.045 ng/ml Diagnostic Radiology CHEST ONE VIEW PORTABLE FINDINGS: The lungs are clear. Cardiac silhouette is normal in size. No pleural effusions. No pneumothorax. The left PICC terminates in the distal SVC. IMPRESSION: No acute process. Electronically signed by: Richie Casper M.D. 12/27/2016 9:53 AM Dictated Date/Time: 12/27/2016 9:51 AM CHEST CTA for AORTIC DISSECTION FINDINGS: Noncontrast imaging through the chest shows no evidence for an intramural hematoma within the thoracic aorta. Normal caliber thoracic aorta with no evidence for dissection. The main pulmonary arteries are patent. A left PICC terminates in the SVC. No pleural or pericardial effusions. The heart is normal in size. No mediastinal or hilar lymphadenopathy. The visualized liver, spleen, and adrenal glands are unremarkable. No pneumothorax. Bibasilar linear densities consistent with subsegmental atelectasis. No focal lung consolidations to suggest pneumonia. The central airways are patent. IMPRESSION: No evidence for an aortic dissection. Electronically signed by: Richie Casper M.D. 12/27/2016 12:24 PM Dictated Date/Time: 12/27/2016 12:17 PM . EKG EKG performed at 08:32 reviewed and demonstrated NSR at 90 / minute, possible age-indeterminate inferior infarct, slight ST depression inferiorly. . Impression Assessment and Plan CHEST PAIN Nonexertional chest pain since yesterday. Serum troponin elevated. EKG shows inferior ST depression + possible age-indeterminate inferior infarct. No apparent aortic dissection per CT. D-dimer elevated. No apparent pulmonary emboli in large pulmonary arteries, but CT was per aorta protocol, not PE. Check venous duplex lower bilateral lower extremities as well as LUE due to PICC. Cannot do CTA chest for PE at this time due to dye load from first CT. Consider CTA chest or V/Q scan if ongoing concerns. Check serial cardiac markers and EKG's. Check lipid profile. Check echo. Treat for possible non-STEMI with aspirin, IV heparin, metoprolol, NTG PRN. Consult Cardiology. CROHN'S DISEASE Symptoms stable. Continue usual meds + TPN. VTE PROPHYLAXIS Moderate risk for VTE. SQ enoxaparin. Ambulate. RESUSCITATION STATUS Full code. DISPOSITION Admit to Telemetry. (Inpatient status per Case Management's recommendation.) Expected discharge to home. Family Medicine follow-up with Dr. Morales. GI follow-up with Dr. Booth @ [facility]. . VTE Prophylaxis VTE Risk Assessment Done? Y/N: Yes Risk Level: Moderate Given or contraindicated: Enoxaparin (Lovenox)SQ
[2016-12-27] MEDS ORDERED: MoRPHine SULFATE 2 MG/ML CARP IV PRN (12:30)
[2016-12-27] MEDS ORDERED: POLYETHYLENE (MIRALAX) 17 GM PACK PO PRN (12:30)
[2016-12-27] MEDS ORDERED: ACETAMINOPHEN 325 MG TAB PO PRN (12:30)
[2016-12-27] MEDS ORDERED: NITROGLYCERIN 0.4 MG SL PER TAB CHARGE SL PRN (12:30)
[2016-12-27] MEDS ORDERED: ONDANSETRON INJ 2 MG/ML 2 ML VIAL IV PRN (12:30)
[2016-12-27] MEDS ORDERED: ALUMINUM/MAGNESIUM/SIMETH (MAALOX MAX) 30 ML UDC PO PRN (12:30)
[2016-12-27 13:23] LABS: PROTHROMBIN TIME (PATIENT) 10.9 SECONDS (9.0-12.0)
[2016-12-27] MEDS ORDERED: LOPERAMIDE HCL 2 MG CAP PO ONE (13:46)
[2016-12-27] MEDS ORDERED: AZATHIOPRINE 50 MG TAB PO ONE (13:46)
[2016-12-27] MEDS ORDERED: BUDESONIDE EC 3 MG CAP PO ONE (13:46)
[2016-12-27] MEDS ORDERED: ACETAMINOPHEN 500 MG TAB PO PRN (14:00)
[2016-12-27 14:09] LABS: MANUAL MICROSCOPIC REQUIRED? YES; URINE APPEARANCE CLEAR (CLEAR); URINE BILIRUBIN NEG (NEG); URINE COLOR YELLOW; URINE NITRITE NEG (NEG); URINE SPECIFIC GRAVITY 1.015 (1.000-1.030); UROBILINOGEN NEG (NEG)
[2016-12-27 14:12] LABS: REVIEW REQ? NO
--- NOTE | 2016-12-27 14:12 | CARDIOLOGY CONSULTATION ---
DATE OF CONSULTATION: 12/27/2016 REFERRING PHYSICIAN: Dr. Hawthorne. REASON FOR CONSULTATION: Chest pain. HISTORY OF PRESENT ILLNESS: This is a 51-year-old male patient with a history of Crohn's disease with long-term immunosuppressant medication, bowel resection and a history of reflux esophagitis. The patient was in his usual state of health and then developed severe retrosternal chest discomfort, radiating into his back. The patient states he thought it was his reflux. He laid down and it seemed to get worse when he was lying flat. He decided to present to the Emergency Department. Upon admission, he had positive D-dimer and underwent a CT of the chest, which ruled out dissection, but the dye flow could not adequately imaged the lungs. He has been placed on intravenous heparin. His chest pain has actually resolved and he feels better. He denies a prior history of heart disease. Interestingly, on his EKG, he has prominent Q-waves in leads II, III, and aVF that suggest an age indeterminate inferior wall myocardial infarction. It certainly does not look like an acute event. He denies a history of cardiac arrhythmias. He has had no prior history of congestive heart failure. His point of care troponin I is 0.18 with followup lab tests pending. ALLERGIES: INFLIXIMAB AND SULFA ANTIBIOTICS. PAST MEDICAL HISTORY: As per the history of chief complaint. SOCIAL HISTORY: The patient is currently a nonsmoker. He is and lives with his . FAMILY MEDICAL HISTORY: Noncontributory. REVIEW OF SYSTEMS: A 10-point review of systems is negative except for the history of chief complaint. PHYSICAL EXAMINATION: GENERAL: He is alert and oriented. No acute distress. VITAL SIGNS: Blood pressure is 137/76. Pulse is regular at 76. He is afebrile. HEENT: He is normocephalic. Pupils are equal and reactive to light. Extraocular muscles are intact bilaterally. NECK: The neck veins are flat. Carotids have good upstrokes bilaterally without bruits. Thyroid is nonpalpable. RESPIRATORY: Breath sounds equal bilaterally and clear to auscultation. CARDIOVASCULAR: Heart has a regular rhythm. Normal S1 and S2. No S3 or S4. No cardiac rubs or murmurs. GASTROINTESTINAL: Abdomen is soft and nontender without organomegaly. EXTREMITIES: Free of edema, digit clubbing, or cyanosis. NEUROLOGIC: Grossly intact. SKIN: Warm to touch. LYMPH NODES: Negative to palpation. IMPRESSION: 1. Severe chest pain radiating to back of undetermined etiology, but certainly could be gastroesophageal reflux disease or reflux esophagitis. 2. Crohn's disease, on immunosuppressive agents. 3. Abnormal EKG suggesting a remote inferior wall myocardial infarction. 4. History of gastroesophageal reflux disease. RECOMMENDATIONS: I have added Protonix 40 mg b.i.d. to the patient's current medical regimen. I think he should stay on heparin at least until he has additional cardiac markers. The first one was elevated, but it was a point of care test and we will see what the regular lab draws show. I have also ordered an echocardiogram to evaluate his LV function in light of his abnormal EKG. Currently, he is pain free and has no complaints. CARYL
[2016-12-27 14:17] LABS: URINE BACTERIA NEG (NEG); URINE RBC 0-4 /hpf (0-4); URINE WBC 0 /hpf (0-5)
[2016-12-27 14:18] LABS: ZZUR CULT IF INDIC CLEAN CATCH NO
[2016-12-27] MEDS ORDERED: ASPIRIN 81 MG CHEW PO STA (14:43)
[2016-12-27 15:36] LABS: CKMB/CK RATIO 0.7 (0-3.0)
[2016-12-27] MEDS ORDERED: METOPROLOL TARTRATE 25 MG TAB PO ONE (15:45)
[2016-12-27] MEDS ORDERED: HEPARIN 25,000 UNIT/500ML D5W 500 ML IV PRN (16:00)
[2016-12-27 16:01] VITALS: O2SAT 96
[2016-12-27 16:04] VITALS: BP 118/80; PULSE 60; TEMP 36.8; O2SAT 98
[2016-12-27] MEDS ORDERED: NURSING VERBAL MED ORDER ONE (17:30)
[2016-12-27 19:51] VITALS: BP 112/69; PULSE 60; TEMP 36.6; O2SAT 95
[2016-12-27 20:00] VITALS: O2SAT 96
[2016-12-27 20:33] LABS: CKMB/CK RATIO 0.7 (0-3.0)
[2016-12-27] MEDS: METOPROLOL TARTRATE 25 MG TAB PO SCH (20:41)
[2016-12-27] MEDS: PANTOprazole SOD 40 MG TAB PO SCH (20:41)
[2016-12-27] MEDS: FLUTICASONE PROPIONATE NA SPR 16 GM BTL NAE SCH (20:41)
[2016-12-27 20:50] LABS: PARTIAL THROMBOPLASTIN RATIO 2.1
[2016-12-27] MEDS ORDERED: PANTOprazole SOD 40 MG TAB PO SCH (21:00)
[2016-12-27] MEDS ORDERED: ENOXAPARIN 40 MG/0.4 ML SYR SQ SCH (21:00)
[2016-12-27] MEDS ORDERED: LOPERAMIDE HCL 2 MG CAP PO SCH (21:00)
[2016-12-27] MEDS ORDERED: CHOLESTYRAMINE LIGHT 4 GM PKT PO SCH (22:00)
[2016-12-28] VITALS (8 sets, daily range): BP systolic 110–128; BP diastolic 64–82; PULSE 61–73; TEMP 36.6–36.8; O2SAT 96–99
[2016-12-28 01:23] LABS: PARTIAL THROMBOPLASTIN RATIO 2.4
[2016-12-28 07:00] LABS: MEAN CELL VOLUME 88.2 fL (80-100); MEAN CORPUSCULAR HEMOGLOBIN 29.2 pg (25-34); MEAN CORPUSCULAR HGB CONC 33.2 g/dl (32-36); MEAN PLATELET VOLUME 8.6 fL (7.4-10.4); PLATELET COUNT 206 K/uL (130-400); RED BLOOD COUNT 4.31 M/uL (4.7-6.1); WHITE BLOOD COUNT 7.84 K/uL (4.8-10.8)
[2016-12-28] MEDS ORDERED: LOPERAMIDE HCL 2 MG CAP PO SCH (07:00)
[2016-12-28] MEDS ORDERED: CHOLESTYRAMINE LIGHT 4 GM PKT PO SCH (07:00)
[2016-12-28 07:19] LABS: PARTIAL THROMBOPLASTIN RATIO 2.5
[2016-12-28 07:43] LABS: CHOLESTEROL/HDL RATIO 3.1; CKMB/CK RATIO 0.7 (0-3.0)
--- NOTE | 2016-12-28 08:32 | DIAGNOSTIC IMAGING REPORT ---
ULTRASOUND BILATERAL LOWER EXTREMITY VENOUS CLINICAL HISTORY: Elevated d-dimer. COMPARISON STUDY: Bilateral lower extremity venous ultrasound dated 04/15/16. TECHNIQUE: Real-time, grayscale, and color Doppler sonography of the deep veins of the right and left lower extremity was performed from the inguinal crease to the calf. Compression and augmentation were utilized. FINDINGS: There is no sonographic evidence of deep venous thrombosis identified in the right or left lower extremity. The common femoral, superficial femoral, and popliteal veins are patent and normally compressible bilaterally. The greater saphenous vein and the profunda femoris vein at the junction with the common femoral vein are clear in both legs. The visualized calf veins are patent bilaterally. IMPRESSION: There is no sonographic evidence of deep venous thrombosis identified in the right or left lower extremity. Electronically signed by: Clint Gutierrez M.D. 12/28/2016 8:30 AM Dictated Date/Time: 12/28/2016 8:30 AM
--- NOTE | 2016-12-28 08:33 | DIAGNOSTIC IMAGING REPORT ---
LEFT UPPER EXTREMITY VENOUS DOPPLER HISTORY: elevated D-dimer COMPARISON STUDY: None. FINDINGS: The left internal jugular vein is patent. There is normal flow within the left subclavian vein. There is normal flow and compressibility within the left axillary, basilic, brachial, radial, ulnar, and visualized cephalic veins. PICC line is identified within the left basilic/axillary/subclavian vein. IMPRESSION: No DVT within the left upper extremity. Electronically signed by: Richie Casper M.D. 12/28/2016 8:32 AM Dictated Date/Time: 12/28/2016 8:30 AM
--- NOTE | 2016-12-28 08:56 | ECHOCARDIOGRAM REPORT ---
*NOTICE TO RECEIVING CONSTITUTION PARTY AGENCY This information is strictly Confidential and protected under [place] law. [place] law prohibits you from making any further disclosure of this information unless further disclosure is expressly permitted by the written consent of the person to whom it pertains or is authorized by law. A general authorization for the release of medical or other information is not sufficient for this purpose. Hospital accepts no responsibility if the information is made available to any other person, INCLUDING THE PATIENT. Interpretation Summary * Name: NASRA GRAHAM Study Date: 12/27/2016 02:28 PM BP: 122/80 mmHg * Patient Location: .2T\S\S237\S\1 HR: 75 * : 1965 (M/d/yyyy) Gender: Male Height: 72 in * Age: 51 yrs Ethnicity: CA Weight: 183 lb * Ordering Physician: Josiah Seymour * Referring Physician: Self, Referred * Performed By: Shira Saavedra RDCS * * Reason For Study: Chest pain * BSA: 2.1 m2 * -- Conclusions -- * The left ventricle is normal in size. * Left ventricular systolic function is normal. * Ejection Fraction = 55-60%. * The right ventricular systolic function is normal. * The left atrial size is normal. * Right atrial size is normal. * No significant valvular pathology. Procedure Details * A complete two-dimensional transthoracic echocardiogram was performed (2D, M-mode, Doppler and color flow Doppler). Left Ventricle * The left ventricle is normal in size. * There is normal left ventricular wall thickness. * Ejection Fraction = 55-60%. * Left ventricular systolic function is normal. * The left ventricular wall motion is normal. Right Ventricle * The right ventricle is normal size. * The right ventricular systolic function is normal. Atria * The left atrial size is normal. * Right atrial size is normal. * The interatrial septum is intact with no evidence for an atrial septal defect. Mitral Valve * The mitral valve is normal in structure and function. Tricuspid Valve * The tricuspid valve anatomy is normal. * Significant tricuspid regurgitation is absent. Aortic Valve * The aortic valve is tricuspid. The leaflet thickness if normal. There is no aortic stenosis, and no significant insufficiency. * Aortic stenosis is absent. Pulmonic Valve * The pulmonic valve is not well seen, but is grossly normal. * There is no significant pulmonary regurgitation. Great Vessels * The aortic root and proximal ascending aorta are normal sized. Pericardium/Pleural * There is no pericardial effusion. MMode 2D Measurements and Calculations IVSd 1.0 cm LVIDd 4.7 cm LVIDs 3.3 cm LVPWd 1.2 cm IVS/LVPW 0.88 FS 29.7 % EDV(Teich) 102.3 ml ESV(Teich) 44.2 ml EF(Teich) 56.8 % EDV(cubed) 103.7 ml ESV(cubed) 36.0 ml EF(cubed) 65.3 % LV mass(C)d 188.5 grams LV mass(C)dI 91.9 grams/m\S\2 SV(Teich) 58.1 ml SI(Teich) 28.3 ml/m\S\2 SV(cubed) 67.7 ml SI(cubed) 33.0 ml/m\S\2 Ao root diam 3.6 cm Ao root area 10.1 cm\S\2 ACS 1.7 cm LA dimension 2.9 cm asc Aorta Diam 2.8 cm LA/Ao 0.81 LVOT diam 2.2 cm LVOT area 3.7 cm\S\2 LVAd ap4 34.6 cm\S\2 LVLd ap4 8.5 cm EDV(MOD-sp4) 113.8 ml EDV(sp4-el) 119.0 ml LVAs ap4 20.7 cm\S\2 LVLs ap4 7.5 cm ESV(MOD-sp4) 47.3 ml ESV(sp4-el) 48.5 ml EF(MOD-sp4) 58.4 % EF(sp4-el) 59.3 % LVAd ap2 28.3 cm\S\2 LVLd ap2 8.2 cm EDV(MOD-sp2) 79.8 ml EDV(sp2-el) 83.0 ml LVAs ap2 17.2 cm\S\2 LVLs ap2 7.6 cm ESV(MOD-sp2) 32.9 ml ESV(sp2-el) 33.2 ml EF(MOD-sp2) 58.8 % EF(sp2-el) 60.0 % LVLd %diff -3.99 % EDV(MOD-bp) 97.4 ml LVLs %diff 1.2 % ESV(MOD-bp) 39.6 ml EF(MOD-bp) 59.3 % SV(MOD-sp4) 66.5 ml SI(MOD-sp4) 32.4 ml/m\S\2 SV(MOD-sp2) 46.9 ml SI(MOD-sp2) 22.9 ml/m\S\2 SV(MOD-bp) 57.7 ml SI(MOD-bp) 28.1 ml/m\S\2 SV(sp4-el) 70.6 ml SI(sp4-el) 34.4 ml/m\S\2 SV(sp2-el) 49.8 ml SI(sp2-el) 24.3 ml/m\S\2 Doppler Measurements and Calculations MV E max tierra 52.4 cm/sec MV A max tierra 49.0 cm/sec MV E/A 1.1 MV dec time 0.21 sec Ao V2 max 116.7 cm/sec Ao max PG 5.5 mmHg Ao max PG (full) 2.6 mmHg MALIHA(V,A) 2.7 cm\S\2 MALIHA(V,D) 2.7 cm\S\2 AI max tierra 146.6 cm/sec AI max PG 8.6 mmHg AI dec slope 61.6 cm/sec\S\2 AI P1/2t 697.2 msec LV V1 max PG 2.8 mmHg LV V1 max 84.4 cm/sec PA V2 max 78.2 cm/sec PA max PG 2.4 mmHg PA acc slope 467.5 cm/sec\S\2 PA acc time 0.12 sec PI max tierra 124.2 cm/sec PI max PG 6.2 mmHg PI dec slope 168.8 cm/sec\S\2 PI P1/2t 215.5 msec PA pr(Accel) 26.7 mmHg
[2016-12-28] MEDS ORDERED: ASPIRIN 81 MG ECTAB PO SCH (09:00)
[2016-12-28] MEDS: FLUTICASONE PROPIONATE NA SPR 16 GM BTL NAE SCH (09:17)
[2016-12-28] MEDS: PANTOprazole SOD 40 MG TAB PO SCH (09:17)
[2016-12-28] MEDS: METOPROLOL TARTRATE 25 MG TAB PO SCH (09:18)
--- NOTE | 2016-12-28 09:43 | Gastrointestinal Consultation ---
Gastrointestinal Consultation Date of Consultation: Dec 28, 2016 Attending Physician: Dr. Seymour Consulting Physician: Dr. Riojas/JUAN DANIEL Dickerson Reason for Consultation: Chest pain and Crohn's History of Present Illness Patient is a 51 year old male with a complex past medical history of GERD and severe Crohn's ileocolitis with prior phlegmon requiring prior resection in the past. He has failed Remicade, Humira and Cimzia therapy in the past. The patient has had difficulty in the past maintaining adequate nutrition and has been on a regimen now with Simponi, intermittent antibiotic therapy, TPN, Imuran , IVIG and nutritional supplementation. He is followed closely by Dr. Booth at [facility]. With his current maintenance regimen, he has been able to maintain weight (approximately 185 pounds) and has been having a fairly consistent bowel pattern with 3 bowel movements per day on average without any recta bleeding or abdominal pain. States he was last seen at [facility] in October. On Wednesday, however, he states he developed a sudden onset of chest pain radiating into his back. Symptoms began after eating a salad which he typically avoids due to his Crohn's disease. Initially, he felt the symptoms were related to pyrosis although no improvement with OTC H2RA therapy and Prilosec. States the pain persisted throughout the night on Wednesday and into Wednesday morning. Concerned, he presented to the ER for further evaluation. On arrival, he was noted to have a slightly elevated troponin, abnormal ECG and elevated D-dimer > 450. He has been started on IV heparin for concern of possible PE and his chest pain has since resolved. Dr. Seymour has evaluated Mr. 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 Patient states he is planned for a cardiac stress test today. He has been started on Protonix 40 mg BID and is NPO at present. Currently, he states he is asymptomatic from a GI standpoint. Denies any further chest pain, pyrosis, dysphagia, odynophagia, nausea, vomiting, abdominal pain, diarrhea, constipation, melena, hematochezia or fatigue. He further denies any shortness of breath, LINDA, palpitations, dizziness, or syncope. Past Medical/Surgical History Medical Problems: (1) ACS (acute coronary syndrome) Status: Acute (2) Back pain Status: Acute (3) Bilateral leg pain Status: Acute (4) Bleeding from PICC line Status: Acute (5) Cellulitis Status: Acute (6) Dehydration Status: Acute (7) Elevated troponin level Status: Acute (8) Hypophosphatemia Status: Acute (9) Leukocytosis Status: Acute (10) Palpitations Status: Acute (11) Perianal abscess Status: Acute (12) Sinus tachycardia Status: Acute (13) Substernal chest pain Status: Acute (14) Tick bite of left axillary region Status: Acute Past Medical History: 1. Crohn's ileocolitis diagnosed in 1989 2. GERD 3. Anemia 4. PUD 5. Lyme disease 6. Urinary calculi 7. Malnutrition Past Surgical History: 1. Cystoscopy 2. Bowel resection 3. EGD 4. Colonoscopy 5. I&D perianal phlegmon 6. Appendectomy Family History Diabetes mellitus BROTHER Pacemaker FATHER Pancreatic cancer MOTHER Sarcoidosis BROTHER Negative for IBD Social History Smoking Status: Never Smoker Drug Use: none Marital Status: Housing Status: lives with family Occupation Status: employed Allergies Coded Allergies: Sulfa Antibiotics (Verified Allergy, Unknown, UNKNOWN, 12/27/16) Infliximab (Verified Adverse Reaction, Severe, " LUPUS SYMPTOMS", 12/27/16 ) Current Medications Home Meds and Scripts Medications Dose Route/Sig Max Daily Dose Days Date Category Dose Instructions Vitamin D 94020 Unit (Ergocalciferol) 50,000 Unit Cap 50,000 Unit PO [id number] 09/29/16 Reported Tpn Infusion (Total Parenteral Nutrition) 1 Ea Inj 1 Ea IV [id number] 07/07/16 Reported Flonase Allergy Relief (Fluticasone Propionate (Nasal)) 50 Mcg/Act Spr 2 Sprays FAMILIA BID 05/28/16 Reported Simponi (Golimumab) 100 Mg/Ml Inj 100 Mg SC [id number] 04/13/16 Reported Flagyl (Metronidazole) 250 Mg Tab 250 Mg PO UD 04/13/16 Reported TAKE THIS MEDICATION TWICE DAILY EVERY OTHER WEEK Cyanocobalamin 1,000 Mcg/Ml Inj 1,000 Mcg IM WK 04/13/16 Reported ADMINISTER EVERY WEDNESDAY Os-Leonardo 500 Plus D (Calcium/Vitamin D) Tab 1 Tab PO DAILY 04/10/16 Reported Bivigam (Immune Globulin (Human) Iv) 5 Gm/50 Ml Inj 1 Dose IV. [id number] 09/16/15 Reported Reclast (Zoledronic Acid) 5 Mg/100 Ml Inj 5 Mg IV YEARLY 09/16/15 Reported Entocort Ec (Budesonide) 3 Mg Cap 3 Mg PO DAILY 07/13/15 Reported Cholestyramine 4 Gm/Dose Pow 6 Gm PO BID 06/23/13 Reported Tylenol (Acetaminophen) 500 Mg Tab 1,000 Mg PO UD PRN 09/19/12 Reported TAKE PER PACKAGE DIRECTIONS Imodium A-D (Loperamide Hcl) 2 Mg Tab 6 Mg PO TID 09/19/12 Reported Prilosec (Omeprazole) 20 Mg Capcr 20 Mg PO BID PRN 09/19/12 Reported Imuran (Azathioprine) 50 Mg Tab 150 Mg PO DAILY 09/21/07 Reported Review of Systems See HPI for pertinent positives & negatives. A total of 10 systems reviewed and were otherwise negative. Physical Exam Date Time Temp Pulse Resp B/P (MAP) Pulse Ox O2 Delivery O2 Flow Rate FiO2 12/28/16 08:00 Room Air 12/28/16 07:37 36.8 73 18 125/82 (96) 99 Room Air 12/28/16 04:01 36.6 61 16 111/70 (84) 97 Room Air 12/28/16 04:00 96 Room Air 12/28/16 00:15 36.6 65 18 110/64 (79) 97 Room Air 12/28/16 00:00 96 Room Air 12/27/16 20:00 96 Room Air 12/27/16 19:51 36.6 60 18 112/69 (83) 95 Room Air 12/27/16 16:04 36.8 60 18 118/80 (93) 98 Room Air 12/27/16 16:01 96 Room Air 12/27/16 13:02 75 12/27/16 12:35 80 21 12/27/16 12:30 122/80 12/27/16 12:15 36.8 76 16 137/76 96 Room Air 12/27/16 11:05 83 21 12/27/16 11:00 115/78 12/27/16 10:54 71 20 12/27/16 10:30 117/79 12/27/16 10:24 74 17 12/27/16 10:00 114/79 12/27/16 09:54 77 19 12/27/16 09:32 77 137/83 12/27/16 09:30 137/83 12/27/16 09:30 Room Air 12/27/16 09:24 80 19 General Appearance: WD/WN, no apparent distress Eyes: EOMI ENT: hearing grossly normal Neck: supple Respiratory/Chest: lungs clear, normal breath sounds, no respiratory distress Cardiovascular: regular rate, rhythm, no gallop, no murmur Abdomen: normal bowel sounds, non tender, soft Extremities: no pedal edema Neurologic/Psych: alert, normal mood/affect, oriented x 3 Skin: warm/dry Laboratory Results Last 24 Hours Test 12/27/16 12:30 12/27/16 15:02 12/27/16 19:54 12/28/16 00:45 Urine Color YELLOW Urine Appearance CLEAR Urine pH 5.0 Urine Specific [place] 1.015 Urine Protein NEG Urine Glucose (UA) NEG Urine Ketones NEG Urine Occult Blood 1+ Urine Nitrite NEG Urine Bilirubin NEG Urine Urobilinogen NEG Urine Leukocyte Esterase NEG Urine RBC 0-4 /hpf Urine WBC 0 /hpf Urine Epithelial Cells 0-5 /lpf Urine Bacteria NEG Urine Hyaline Casts 10-30 /lpf Total Creatine Kinase 112 U/L 104 U/L Creatine Kinase MB 0.8 ng/ml 0.7 ng/ml Creatine Kinase MB Ratio 0.7 0.7 Troponin I < 0.015 ng/ml < 0.015 ng/ml Activated Partial Thromboplast Time 55.5 SECONDS 61.5 SECONDS Partial Thromboplastin Ratio 2.1 2.4 Test 12/28/16 06:33 White Blood Count 7.84 K/uL Red Blood Count 4.31 M/uL Hemoglobin 12.6 g/dL Hematocrit 38.0 % Mean Corpuscular Volume 88.2 fL Mean Corpuscular Hemoglobin 29.2 pg Mean Corpuscular Hemoglobin Concent 33.2 g/dl RDW Standard Deviation 47.3 fL RDW Coefficient of Variation 14.7 % Platelet Count 206 K/uL Mean Platelet Volume 8.6 fL Activated Partial Thromboplast Time 65.0 SECONDS Partial Thromboplastin Ratio 2.5 Total Creatine Kinase 94 U/L Creatine Kinase MB 0.7 ng/ml Creatine Kinase MB Ratio 0.7 Troponin I 0.016 ng/ml Triglycerides Level 98 mg/dl Cholesterol Level 120 mg/dl HDL Cholesterol 39 mg/dl LDL Cholesterol, Calculated 61 mg/dl VLDL Cholesterol, Calculated 20 mg/dl Cholesterol/HDL Ratio 3.1 Impression Patient is a 51 year old male with a history of GERD and severe Crohn's ileocolitis doing well on Simponi, Imuran, antibiotic therapy and nutritional supplementation admitted with sudden onset of chest pain, now resolved. Plan 1. Patient declines invasive GI work up as chest pain has resolved. 2. Continue Protonix 40 mg BID. 3. Supportive medical management. 4. Outpatient follow up with Dr. Booth as scheduled in regard to Crohn's disease. Thank you for allowing us to participate in the care of this pleasant patient. If you have any questions or concerns, please do not hesitate to contact us. Agree with JUAN DANIEL Dickerson as above. Patient was discharged prior to my evaluation.
--- NOTE | 2016-12-28 10:22 | Cardiology Follow-Up ---
Subjective General Date of Service: Dec 28, 2016. Chief Complaint: Chest pain Pt evaluation today including: conversation w/ patient, physical exam, chart review, lab review, review of studies, review of inpatient medication list History of Present Illness Patient seen and examined. No further chest pain. Describes "it felt just like heartburn." Symptoms occurred after eating salad; they were not aggravated by activity. Notes walking in [place] to [place] stand without aggravation of symptoms or limitation. Data: CPK, CK-MB, and Troponin I negative x 3. EKG this morning reveals normal sinus rhythm at 61 bpm. Criteria for inferior infarct are no longer present December 27, 2016 TTE Interpretation Summary ([facility], Dr. Seymour): The left ventricle is normal in size. Left ventricular systolic function is normal. Ejection Fraction = 55-60%. The right ventricular systolic function is normal. The left atrial size is normal. Right atrial size is normal. No significant valvular pathology. Telemetry: Currently sinus at 70 bpm. Bradycardic down to 40 bpm. PVC's in singles, couplets, one triplet, and one six beat run around 100 bpm on 2016 at 23:08:46 Allergies Coded Allergies: Sulfa Antibiotics (Verified Allergy, Unknown, UNKNOWN, 12/27/16) Infliximab (Verified Adverse Reaction, Severe, " LUPUS SYMPTOMS", 12/27/16 ) Social History Smoking Status: Never Smoker Hx Tobacco Use In Past Year?: No Hx Alcohol Use - Type And Amou: No Hx Substance Use - Type And Am: No Problem List Medical Problems: (1) ACS (acute coronary syndrome) Status: Acute (2) Back pain Status: Acute (3) Bilateral leg pain Status: Acute (4) Bleeding from PICC line Status: Acute (5) Cellulitis Status: Acute (6) Dehydration Status: Acute (7) Elevated troponin level Status: Acute (8) Hypophosphatemia Status: Acute (9) Leukocytosis Status: Acute (10) Palpitations Status: Acute (11) Perianal abscess Status: Acute (12) Sinus tachycardia Status: Acute (13) Substernal chest pain Status: Acute (14) Tick bite of left axillary region Status: Acute Physical Exam Vital Signs Last Vital Signs Documentation Date Time Temp Pulse Resp B/P (MAP) Pulse Ox O2 Delivery O2 Flow Rate FiO2 12/28/16 08:00 Room Air 12/28/16 07:37 36.8 73 18 125/82 (96) 99 Physical Exam Constitutional: Level of Distress: NAD Psychiatric: Mental Status: active & alert Orientation: to time, to place, to person Memory: recent memory normal, remote memory normal Head: normocephalic, atraumatic Eyes: Pupils: PERRLA Neck: pertinent finding (No overt JVD) Lungs: Auscultation: breath sounds normal, no wheezing, no rales/crackles, no rhonchi Cardiovascular: Heart Auscultation: RRR, normal S1, normal S2, no murmurs, no rubs, no gallops Extremities: pertinent finding (Left upper extremity PICC line) Neurologic: Cranial Nerves: grossly intact Assessment and Plan Assessment and Plan Atypical chest discomfort POC Troponin on presentation elevated at 0.180 ng/mL. CPK, CK-MB, and Troponin I negative x 3. EKG this morning reveals normal sinus rhythm at 61 bpm. Criteria for inferior infarct no longer present Echo with normal LV systolic function, without evidence of prior infarct, wall motion abnormalities, or significant valvular pathology. Asymptomatic ventricular ectopy including PVC's in singles, couplets, one triplet, and one six beat run around 100 bpm on 12/27/2016 at 23:08:46 RECOMMENDATIONS/PLAN: Check electrolytes and TSH given observed ventricular ectopy ? need stress echocardiography; will discuss with Dr. Seymour There does not appear to be any cardiac indication for the ongoing use of IV heparin CARDIOLOGY ATTENDING ADDENDUM: The patient was seen and personally examined. Agree with Jp Oreilly PA-C's findings and plans as documented above. Just to be complete, will proceed with stress today and if negative ok with discharge. Laboratory Results Last 24 Hours Test 12/27/16 12:30 12/27/16 15:02 12/27/16 19:54 12/28/16 00:45 Urine Color YELLOW Urine Appearance CLEAR Urine pH 5.0 Urine Specific [place] 1.015 Urine Protein NEG Urine Glucose (UA) NEG Urine Ketones NEG Urine Occult Blood 1+ Urine Nitrite NEG Urine Bilirubin NEG Urine Urobilinogen NEG Urine Leukocyte Esterase NEG Urine RBC 0-4 /hpf Urine WBC 0 /hpf Urine Epithelial Cells 0-5 /lpf Urine Bacteria NEG Urine Hyaline Casts 10-30 /lpf Total Creatine Kinase 112 U/L 104 U/L Creatine Kinase MB 0.8 ng/ml 0.7 ng/ml Creatine Kinase MB Ratio 0.7 0.7 Troponin I < 0.015 ng/ml < 0.015 ng/ml Activated Partial Thromboplast Time 55.5 SECONDS 61.5 SECONDS Partial Thromboplastin Ratio 2.1 2.4 Test 12/28/16 06:33 White Blood Count 7.84 K/uL Red Blood Count 4.31 M/uL Hemoglobin 12.6 g/dL Hematocrit 38.0 % Mean Corpuscular Volume 88.2 fL Mean Corpuscular Hemoglobin 29.2 pg Mean Corpuscular Hemoglobin Concent 33.2 g/dl RDW Standard Deviation 47.3 fL RDW Coefficient of Variation 14.7 % Platelet Count 206 K/uL Mean Platelet Volume 8.6 fL Activated Partial Thromboplast Time 65.0 SECONDS Partial Thromboplastin Ratio 2.5 Total Creatine Kinase 94 U/L Creatine Kinase MB 0.7 ng/ml Creatine Kinase MB Ratio 0.7 Troponin I 0.016 ng/ml Triglycerides Level 98 mg/dl Cholesterol Level 120 mg/dl HDL Cholesterol 39 mg/dl LDL Cholesterol, Calculated 61 mg/dl VLDL Cholesterol, Calculated 20 mg/dl Cholesterol/HDL Ratio 3.1
[2016-12-28 11:29] LABS: BUN/CREATININE RATIO 11.5 (10-20); CALCIUM 9.2 mg/dl (8.5-10.1); MAGNESIUM 2.1 mg/dl (1.8-2.4)
[2016-12-28 11:34] LABS: CREATININE 0.82 mg/dl (0.60-1.40); POTASSIUM 4.4 mmol/L (3.5-5.1)
[2016-12-28 11:39] LABS: THYROID STIMULATING HORMONE 5.41 uIu/ml (0.300-4.500)
[2016-12-28] MEDS ORDERED: BUDESONIDE EC 3 MG CAP PO SCH (12:00)
[2016-12-28] MEDS ORDERED: AZATHIOPRINE 50 MG TAB PO SCH (12:00)
--- NOTE | 2016-12-28 15:52 | Progress Note ---
Internal Med Progress Note Date of Service: Dec 28, 2016. Provider Documentation: SUBJECTIVE: resting comfortably no more chest pain or sob thinks his pain was mostly heart burn but it lasted longer rthan usual and came to er currently pain free s/p stress test today OBJECTIVE: Vital Signs-as noted below Exam: General-alert and oriented. Not in distress ENT-normal hearing Lungs-cta b/l no wheezing or crackles Heart-s1 and s2 heard regular rate and rhythm, no murmurs Abdomen-soft bowel sounds present non tender no distension Extremities-no edema no erythema Neuro-alert and oriented moves extremities Lab data as noted below. ASSESSMENT & PLAN: CHEST PAIN Nonexertional chest pain since yesterday. POC troponin 0.18 but repeat troponin and serial ce negative ekg on presentation st depression in inferior leads was started on iv heparin repeat ekg today unremarkable patient asymptomatic s/p stress test and if negative plan to d/c home CROHN'S DISEASE Symptoms stable. Continue usual meds + TPN. seen by GI and appreciate inputs VTE PROPHYLAXIS Lovenox RESUSCITATION STATUS Full code. DISPOSITION possible d/c today Vital Signs: Date Time Temp Pulse Resp B/P (MAP) Pulse Ox O2 Delivery O2 Flow Rate FiO2 12/28/16 12:09 99 Room Air 12/28/16 11:14 36.6 67 18 128/79 (95) 99 Room Air 12/28/16 08:00 Room Air 12/28/16 07:37 36.8 73 18 125/82 (96) 99 Room Air 12/28/16 04:01 36.6 61 16 111/70 (84) 97 Room Air 12/28/16 04:00 96 Room Air 12/28/16 00:15 36.6 65 18 110/64 (79) 97 Room Air 12/28/16 00:00 96 Room Air 12/27/16 20:00 96 Room Air 12/27/16 19:51 36.6 60 18 112/69 (83) 95 Room Air 12/27/16 16:04 36.8 60 18 118/80 (93) 98 Room Air 12/27/16 16:01 96 Room Air Lab Results: Results Past 24 Hours Test 12/27/16 19:54 12/28/16 00:45 12/28/16 06:33 12/28/16 10:35 Range/Units Activated Partial Thromboplast Time 55.5 61.5 65.0 21.0-31.0 SECONDS Partial Thromboplastin Ratio 2.1 2.4 2.5 Total Creatine Kinase 104 94 39-308 U/L Creatine Kinase MB 0.7 0.7 0.5-3.6 ng/ml Creatine Kinase MB Ratio 0.7 0.7 0-3.0 Troponin I < 0.015 0.016 0-0.045 ng/ml White Blood Count 7.84 4.8-10.8 K/uL Red Blood Count 4.31 4.7-6.1 M/uL Hemoglobin 12.6 14.0-18.0 g/dL Hematocrit 38.0 42-52 % Mean Corpuscular Volume 88.2 80-100 fL Mean Corpuscular Hemoglobin 29.2 25-34 pg Mean Corpuscular Hemoglobin Concent 33.2 32-36 g/dl RDW Standard Deviation 47.3 36.4-46.3 fL RDW Coefficient of Variation 14.7 11.5-14.5 % Platelet Count 206 130-400 K/uL Mean Platelet Volume 8.6 7.4-10.4 fL Triglycerides Level 98 0-150 mg/dl Cholesterol Level 120 0-200 mg/dl HDL Cholesterol 39 mg/dl LDL Cholesterol, Calculated 61 mg/dl VLDL Cholesterol, Calculated 20 mg/dl Cholesterol/HDL Ratio 3.1 Sodium Level 142 136-145 mmol/L Potassium Level 4.4 3.5-5.1 mmol/L Chloride Level 112 98-107 mmol/L Carbon Dioxide Level 25 21-32 mmol/L Anion Gap 5.0 3-11 mmol/L Blood Urea Nitrogen 9 7-18 mg/dl Creatinine 0.82 0.60-1.40 mg/dl Est Creatinine Clear Calc Drug Dose 119.6 ml/min Estimated GFR () 120.3 Estimated GFR (Non- 103.8 BUN/Creatinine Ratio 11.5 10-20 Random Glucose 88 70-99 mg/dl Calcium Level 9.2 8.5-10.1 mg/dl Magnesium Level 2.1 1.8-2.4 mg/dl Thyroid Stimulating Hormone (TSH) 5.410 0.300-4.500 uIu/ml
--- NOTE | 2016-12-28 16:23 | Discharge Instructions ---
Discharge Instructions Date of Service Dec 28, 2016. Admission Reason for Admission: Chest Pain Discharge Discharge Diagnosis / Problem: CHEST PAIN Discharge Goals Goal(s): Decrease discomfort, Improve function Activity Recommendations Activity Limitations: resume your previous activity . Instructions / Follow-Up Instructions / Follow-Up FOLLOWUP WITH FAMILY DOCTOR ON December AT 11AM Current Hospital Diet Patient's current hospital diet: AHA Diet (Heart Healthy) Discharge Diet Recommended Diet: AHA Diet (Heart Healthy) Pending Studies Studies pending at discharge: no Laboratory Results Lipid Panel Test 12/28/16 06:33 Range/Units Triglycerides Level 98 0-150 mg/dl Cholesterol Level 120 0-200 mg/dl HDL Cholesterol 39 mg/dl Cholesterol/HDL Ratio 3.1 LDL Cholesterol, Calculated 61 mg/dl Medical Emergencies . Who to Call and When: Medical Emergencies: If at any time you feel your situation is an emergency, please call 911 immediately. . Non-Emergent Contact Non-Emergency issues call your: Primary Care Provider . . "Provider Documentation" section prepared by Anjum Keen. . VTE Core Measure Inpt VTE Proph given/why not?: Enoxaparin (Lovenox)SQ
--- NOTE | 2016-12-28 16:31 | EXERCISE STRESS ECHO ---
*NOTICE TO RECEIVING [employer] AGENCY This information is strictly Confidential and protected under [place] law. [place] law prohibits you from making any further disclosure of this information unless further disclosure is expressly permitted by the written consent of the person to whom it pertains or is authorized by law. A general authorization for the release of medical or other information is not sufficient for this purpose. Hospital accepts no responsibility if the information is made available to any other person, INCLUDING THE PATIENT. Interpretation Summary * Name: NASRA GRAHAM Study Date: 12/28/2016 01:41 PM BP: 126/76 mmHg * Patient Location: 2\[id number]\[id number]\1 * : 1965 (M/d/yyyy) Gender: Male Height: 72 in * Age: 51 yrs Ethnicity: [place] Weight: 182 lb * Ordering Physician: Josiah Seymour * Referring Physician: Self, Referred * Performed By: Oriana Reyes RCS * * Reason For Study: CHEST PAIN * BSA: 2.0 m2 * STRESS STUDY: Normal exercise stress echocardiogram. No echocardiographic or ECG evidence of myocardial ischemia having achieved heart rate adequate for diagnostic purposes. * -- Conclusions -- * STRESS STUDY: Normal exercise stress echocardiogram. No echocardiographic or ECG evidence of myocardial ischemia having achieved heart rate adequate for diagnostic purposes. Procedure Details * ECHOEX, CPT #27079 Stress Parameters * Baseline ECG was essentially normal. No symptoms were noted. * Stress ECG: No ST changes. No arrhythmias. * The stress ECG response was normal * The stress portion of this study was personally supervised by the undersigned interpreting physician. * Rest heart rate was '66' BPM. * Rest blood pressure was '126/76' * Maximum heart rate achieved was 155 bpm. * Maximum heart rate was 90 % of maximum age-predicted heart rate. * Maximum blood pressure was '202/100' * Total exercise time was '09:20' * Maximum exercise MET level achieved was '10.60' METS * Maximum treadmill speed was '4.20' miles per hour. * Maximum treadmill elevation was '16.00'% grade.
--- NOTE | 2016-12-28 17:24 | Discharge Summary ---
Discharge Summary Date of Service Dec 28, 2016. Discharge Summary Admission Date: Dec 27, 2016 at 12:28 Discharge Date: Dec 28, 2016 Discharge Disposition: Home Principal Diagnosis: CHEST PAIN Secondary Diagnoses/Problems: (1) Crohn's disease Permanent Comment: s/p small bowel resection Status: Chronic (2) GERD (gastroesophageal reflux disease) Status: Chronic (3) History of Lyme disease Status: Chronic (4) History of urinary calculi Status: Chronic (5) Long-term use of immunosuppressant medication Permanent Comment: Simponi, Imuran, IVIG Status: Chronic (6) Malnutrition Status: Chronic Procedures: CHEST CTA: No evidence for an aortic dissection. VENOUS DOPPLER STUDY: There is no sonographic evidence of deep venous thrombosis identified in the right or left lower extremity. UPPER EXTREMITY DOPPLER: No DVT within the left upper extremity. RESTING ECHO: The left ventricle is normal in size. * Left ventricular systolic function is normal. * Ejection Fraction = 55-60%. * The right ventricular systolic function is normal. * The left atrial size is normal. * Right atrial size is normal. * No significant valvular pathology. STRESS STUDY: Normal exercise stress echocardiogram. No echocardiographic or ECG evidence of myocardial ischemia having achieved heart rate adequate for diagnostic purposes. Consultations: CARDIOLOGY Medication Reconciliation Continued Medications: Acetaminophen (Tylenol) 500 Mg Tab 1000 MG PO UD PRN for Pain, TAB TAKE PER PACKAGE DIRECTIONS Azathioprine (Imuran) 50 Mg Tab 150 MG PO DAILY Budesonide (Entocort Ec) 3 Mg Cap 3 MG PO DAILY, CAP Calcium/Vitamin D (Os-Leonardo 500 Plus D) Tab 1 TAB PO DAILY, TAB Cholestyramine (Cholestyramine) 4 Gm/Dose Pow 6 GM PO BID Cyanocobalamin (Cyanocobalamin) 1,000 Mcg/Ml Inj 1000 MCG IM WK ADMINISTER EVERY WEDNESDAY Ergocalciferol (Vitamin D 75169 Unit) 50,000 Unit Cap 38976 UNIT PO 2XWK, CAP Fluticasone Propionate (Nasal) (Flonase Allergy Relief) 50 Mcg/Act Spr 2 SPRAYS FAMILIA BID Golimumab (Simponi) 100 Mg/Ml Inj 100 MG SC [id number] Immune Globulin (Human) Iv (Bivigam) 5 Gm/50 Ml Inj 1 DOSE IV. [id number] Loperamide Hcl (Imodium A-D) 2 Mg Tab 6 MG PO TID Metronidazole (Flagyl) 250 Mg Tab 250 MG PO UD, TAB TAKE THIS MEDICATION TWICE DAILY EVERY OTHER WEEK Omeprazole (Prilosec) 20 Mg Capcr 20 MG PO BID PRN for Dyspepsia, CAP Tpn Infusion (Tpn Infusion) 1 Ea Inj 1 EA IV 3XWK, EA Zoledronic Acid (Reclast) 5 Mg/100 Ml Inj 5 MG IV YEARLY Admission Information HPI (per Admitting provider): 51 YO male followed by Dr. Morales for Family Medicine and Dr. Booth for GI ( [facility], [facility]). History of Crohn's disease and other problems noted below. Crohn's disease most recently managed with golimumab, IVIg, budesonide. Status post resection of most of his small bowel. On TPN 3 nights a week to maintain nutritional status. Developed chest pain yesterday at rest. Chest pain described as midsternal pressure / burning that radiated to his back. Mandan somewhat diaphoretic. No dyspnea, nausea, vomiting. Thought that he was having some heartburn, so he tried cimetidine without benefit. CP not worse with exertion, sometimes worse in supine position. The discomfort has been waxing and waning since yesterday. No history of heart disease. Stress echo in 2007 did not show any evidence of stress-induced ischemia. No history hypertension, dyslipidemia, diabetes, smoking. No family history of premature ischemic heart disease. . Physical Exam (per Admitting): General Appearance: WD/WN, no apparent distress Head: normocephalic, atraumatic Eyes: normal inspection, PERRL, EOMI, sclerae normal (eyelids and conjunctivae normal) Neck: supple, no adenopathy, thyroid normal, trachea midline Respiratory/Chest: lungs clear, no respiratory distress, no accessory muscle use Cardiovascular: regular rate, rhythm, no edema, no gallop, no JVD, no murmur , normal peripheral pulses (radial and pedal pulses intact / symmetric) Abdomen/GI: normal bowel sounds, non tender, soft, no organomegaly, no pulsatile mass Extremities/Musculoskelatal: normal inspection, no calf tenderness, normal capillary refill, no pedal edema, + pertinent finding (PICC LUE) Neurologic/Psych: emergency dept tech II-XII nml as tested (PERRL, EOMI, no facial palsy, no dysarthria), no motor/sensory deficits (motor strength grossly intact), alert , normal mood/affect, normal reflexes (patellar DTR's 2/2), oriented x 3 Skin: normal color, no rash, + diaphoresis (mild) Lymphatic: no adenopathy (cervical, axillary) Hospital Course CHEST PAIN Nonexertional chest pain since yesterday. POC troponin 0.18 but repeat troponin and serial ce negative ekg on presentation st depression in inferior leads was started on iv heparin repeat ekg today unremarkable CTA CHEST AND VENOUS DOPPLER NEGATIVE STUDY patient asymptomatic s/p stress test and IS NEGATIVE STUDY D/FACUNDO HOME CROHN'S DISEASE Symptoms stable. Continue usual meds + TPN. seen by GI and appreciate inputs VTE PROPHYLAXIS Lovenox RESUSCITATION STATUS Full code. DISPOSITION DISCHARGE HOME Total time spent on discharge = 35MINUTES This includes examination of the patient, discharge planning, medication reconciliation, and communication with other providers. Discharge Instructions Discharge Instructions Date of Service Dec 28, 2016. Admission Reason for Admission: Chest Pain Discharge Discharge Diagnosis / Problem: CHEST PAIN Discharge Goals Goal(s): Decrease discomfort, Improve function Activity Recommendations Activity Limitations: resume your previous activity . Instructions / Follow-Up Instructions / Follow-Up FOLLOWUP WITH FAMILY DOCTOR ON December AT 11AM Current Hospital Diet Patient's current hospital diet: AHA Diet (Heart Healthy) Discharge Diet Recommended Diet: AHA Diet (Heart Healthy) Pending Studies Studies pending at discharge: no Laboratory Results Lipid Panel Test 12/28/16 06:33 Range/Units Triglycerides Level 98 0-150 mg/dl Cholesterol Level 120 0-200 mg/dl HDL Cholesterol 39 mg/dl Cholesterol/HDL Ratio 3.1 LDL Cholesterol, Calculated 61 mg/dl Medical Emergencies . Who to Call and When: Medical Emergencies: If at any time you feel your situation is an emergency, please call 911 immediately. . Non-Emergent Contact Non-Emergency issues call your: Primary Care Provider . . "Provider Documentation" section prepared by Anjum Keen. . VTE Core Measure Inpt VTE Proph given/why not?: Enoxaparin (Lovenox)SQ
[2016-12-29] MEDS ORDERED: TPN IV SCH (19:00)
== END 2016-12-28 16:45 | disposition home or self-care (01) | DRG 281 ==
LOC: C.EDB 08:25 → C.2T 12:28 → ENRESERV 12:45
PROVIDERS: ADMIT Hospitalist; ATTEND Internal Medicine
DX: I21.4 Non-ST elevation (NSTEMI) myocardial infarction (principal); K50.90 Crohn's disease, unspecified, without complications; E46 Unspecified protein-calorie malnutrition; K21.9 Gastro-esophageal reflux disease without esophagitis; Z80.9 Family history of malignant neoplasm, unspecified; Z83.3 Family history of diabetes mellitus; Z84.1 Family history of disorders of kidney and ureter

== ENCOUNTER 2017-04-19 02:19 | Emergency (ER) | payer OTHER ==
[~2017-04-19] VITALS: Ht 182.9 cm; Wt 80.6 kg
[~2017-04-19 02:19] MED LIST changes: +BUDE1CAP6 PO; -BUDE3CAP14 PO
[2017-04-19 02:20] VITALS: TEMP 36.7; Ht 182.9 cm; Wt 80.6 kg
[2017-04-19 02:29] VITALS: O2SAT 97
[2017-04-19 02:57] LABS: HEMATOCRIT 39.2 % (42-52); HEMOGLOBIN 13.3 g/dL (14.0-18.0); MEAN CELL VOLUME 88.5 fL (80-100); MEAN CORPUSCULAR HGB CONC 33.9 g/dl (32-36); MEAN PLATELET VOLUME 8.6 fL (7.4-10.4); PLATELET COUNT 254 K/uL (130-400); RED CELL DISTRIBUTION WIDTH CV 14.8 % (11.5-14.5); RED CELL DISTRIBUTION WIDTH SD 47.7 fL (36.4-46.3); WHITE BLOOD COUNT 7.89 K/uL (4.8-10.8)
[2017-04-19 03:07] LABS: PTT PATIENT 24.9 SECONDS (21.0-31.0)
[2017-04-19 03:12] LABS: ALBUMIN 3.3 gm/dl (3.4-5.0); ALT/SGPT 18 U/L (12-78); AST/SGOT 15 U/L (15-37); BLOOD UREA NITROGEN 13 mg/dl (7-18); CALCIUM 8.8 mg/dl (8.5-10.1); CARBON DIOXIDE 23 mmol/L (21-32); CREATININE 0.87 mg/dl (0.60-1.40); GLUCOSE 86 mg/dl (70-99); POTASSIUM 3.7 mmol/L (3.5-5.1); SODIUM 141 mmol/L (136-145)
[2017-04-19 03:16] LABS: ALKALINE PHOSPHATASE 109 U/L (45-117); CKMB 0.6 ng/ml (0.5-3.6)
[2017-04-19] MEDS ORDERED: FAMOTIDINE 20MG/5ML IV PUSH IV STA (04:04)
[2017-04-19] MEDS ORDERED: CIPR-255 PO (04:22)
[2017-04-19] MEDS ORDERED: OPTIRAY 320 IV PRN (04:30)
--- NOTE | 2017-04-19 06:43 | DIAGNOSTIC IMAGING REPORT ---
CHEST ONE VIEW PORTABLE HISTORY: 51 years-old Male LEFT CHEST PAIN acute atypical chest pain. History of Crohn's disease. COMPARISON: Portable chest radiograph 12/27/2016, CTA of the chest of same day TECHNIQUE: Portable AP view of the chest FINDINGS: Cardiac silhouette is within normal limits in size. Left-sided PICC is seen terminating within the expected region of the mid SVC. There is no pneumothorax, pleural effusion, focal airspace consolidation or overt pulmonary edema. Subsegmental linear atelectasis/scarring is present within the retrocardiac left lower lobe. The bones of the chest appear to be grossly intact. IMPRESSION: No acute process. The above report was generated using voice recognition software. It may contain grammatical, syntax or spelling errors. Electronically signed by: Chepe Zamudio M.D. 04/19/2017 6:41 AM Dictated Date/Time: 04/19/2017 6:40 AM
--- NOTE | 2017-04-19 06:49 | EMERGENCY ROOM VISIT NOTE ---
History Report prepared by Dayana: Bryn Walters Under the Supervision of: Dr. Denice Trotter D.O. First contact with patient: 02:38 Chief Complaint: CHEST PAIN Stated Complaint: CHEST PAIN Nursing Triage Summary: pt with intermittent L chest pain. started yesterday. tonight pain woke pt from sleep. pain is non radiating. pt receives TPN via L PICC for Crohn's. pt states he did not do TPN tonight. "pain is needle like prick". denies recent cough, cold, illness. History of Present Illness The patient is a 51 year old male who presents to the Emergency Room with complaints of intermittent left sided chest pain beginning yesterday. He estimates that the pain is typically present for 20 seconds at a time. He has episodes roughly every 30 minutes or so. The patient states that the pain is localized to a very specific area on his chest. He describes his pain as "sharp ". He denies fevers, chills, cough, shortness of breath, nausea, or dizziness. The patient has a history of Crohn's disease and receives TPN via a left sided PICC line. He did not have his normal TPN tonight. He had the PICC line placed a year ago. The patient notes that the PICC line is coming out a little, but is still within the acceptable range of placement. He has a history of GERD. The patient has no significant family history of blood clots or cardiac problems. He was admitted to the hospital last year after having an elevated troponin, but the cause was not identified. He had a stress test at this time. He was told that his symptoms were likely related to GERD. Source of History: patient Onset: Yesterday Position: chest (left) Symptom Intensity: 20 second long episodes, every 30 minutes Quality: sharp Timing: intermittent Associated Symptoms: No fevers, No chills, No cough, No SOB, No nausea Note: The patient denies dizziness. Review of Systems See HPI for pertinent positives & negatives. A total of 10 systems reviewed and were otherwise negative. Past Medical & Surgical Medical Problems: (1) Crohn's disease (2) GERD (gastroesophageal reflux disease) (3) History of Lyme disease (4) History of urinary calculi (5) Long-term use of immunosuppressant medication (6) Malnutrition Surgical Problems: (1) History of bowel resection (2) Status post cystoscopy Family History Diabetes mellitus BROTHER Pacemaker FATHER Pancreatic cancer MOTHER Sarcoidosis BROTHER Social History Smoking Status: Never Smoker Drug Use: none Marital Status: Housing Status: lives with family Occupation Status: employed Current/Historical Medications Scheduled Azathioprine (Imuran), 150 MG PO DAILY Budesonide (Entocort Ec), 3 MG PO DAILY Calcium/Vitamin D (Os-Leonardo 500 Plus D), 1 TAB PO DAILY Cholestyramine (Cholestyramine), 6 GM PO BID Ciprofloxacin Hcl (Cipro), 500 MG PO BID Cyanocobalamin (Cyanocobalamin), 1,000 MCG IM WK Ergocalciferol (Vitamin D 20397 Unit), 50,000 UNIT PO 2XWK Fluticasone Propionate (Nasal) (Flonase Allergy Relief), 2 SPRAYS FAMILIA BID Golimumab (Simponi), 100 MG SC [id number] Immune Globulin (Human) Iv (Bivigam), 1 DOSE IV. [id number] Loperamide Hcl (Imodium A-D), 6 MG PO TID Metronidazole (Flagyl), 250 MG PO UD Tpn Infusion (Tpn Infusion), 1 EA IV 3XWK Zoledronic Acid (Reclast), 5 MG IV YEARLY Scheduled PRN Omeprazole (Prilosec), 20 MG PO BID PRN for Dyspepsia Allergies Coded Allergies: Sulfa Antibiotics (Verified Allergy, Unknown, UNKNOWN, 04/19/17) Infliximab (Verified Adverse Reaction, Severe, " LUPUS SYMPTOMS", 04/19/17) Physical Exam Vital Signs Date Time Temp Pulse Resp B/P (MAP) Pulse Ox O2 Delivery O2 Flow Rate FiO2 04/19/17 08:58 133/82 04/19/17 07:57 72 18 119/78 97 Room Air 04/19/17 06:06 62 04/19/17 06:00 61 18 115/73 98 Room Air 04/19/17 04:00 66 18 138/84 99 Room Air 04/19/17 03:01 70 04/19/17 03:00 63 18 128/83 97 Room Air 04/19/17 02:34 97 Room Air 04/19/17 02:29 73 20 128/76 97 Room Air 04/19/17 02:29 97 Room Air 04/19/17 02:20 36.7 71 20 141/90 100 Room Air Physical Exam GENERAL: alert, well appearing, well nourished, no distress, non-toxic, thin EYE EXAM: normal conjunctiva, PERRL and EOM's grossly intact OROPHARYNX: no exudate, no erythema, lips, buccal mucosa, and tongue normal and mucous membranes are moist NECK: supple, no nuchal rigidity, no adenopathy, non-tender LUNGS: Clear to auscultation. Normal chest wall mechanics, no wheezes/rhonchi/ rales HEART: no murmurs, S1 normal and S2 normal, area along the left sternal border where pain was is nontender to palpation ABDOMEN: abdomen soft, non-tender, normo-active bowel sounds, no masses, no rebound or guarding. BACK: Back is symmetrical on inspection and there is no deformity, no midline tenderness, no CVA tenderness. SKIN: no rashes and no bruising UPPER EXTREMITIES: upper extremities are grossly normal. PICC line noted in the left upper extremity, no surrounding erythema LOWER EXTREMITIES: No pitting edema. Normal range of motion and normal pulses NEURO EXAM: Normal sensorium, cranial nerves II-XII grossly intact, normal speech, no gross weakness of arms, no gross weakness of legs. Medical Decision & Procedures ER Provider Diagnostic Interpretation: One View Chest X-ray interpreted by me: no cardiomegaly. No effusion. No wide mediastinum. No focal consolidation. PICC line seen and appears in good position. No pneumothorax. CT results per statrad and my review. CTA CHEST: Prior from 12/27/16. No PE. No aortic dissection or aneurysm. Mild basilar atelectasis, otherwise lungs are clear. Laboratory Results 04/19/17 02:40 04/19/17 02:40 Test 04/19/17 02:40 04/19/17 02:41 04/19/17 06:10 Red Blood Count 4.43 M/uL (4.7-6.1) Mean Corpuscular Volume 88.5 fL (80-100) Mean Corpuscular Hemoglobin 30.0 pg (25-34) Mean Corpuscular Hemoglobin Concent 33.9 g/dl (32-36) RDW Standard Deviation 47.7 fL (36.4-46.3) RDW Coefficient of Variation 14.8 % (11.5-14.5) Mean Platelet Volume 8.6 fL (7.4-10.4) Prothrombin Time 10.0 SECONDS (9.0-12.0) Prothromb Time International Ratio 1.0 (0.9-1.1) Activated Partial Thromboplast Time 24.9 SECONDS (21.0-31.0) Partial Thromboplastin Ratio 1.0 D-Dimer 780 ug/L FEU (0-500) Anion Gap 8.0 mmol/L (3-11) Est Creatinine Clear Calc Drug Dose 112.8 ml/min Estimated GFR () 117.5 Estimated GFR (Non- 101.3 BUN/Creatinine Ratio 14.8 (10-20) Calcium Level 8.8 mg/dl (8.5-10.1) Total Bilirubin 0.6 mg/dl (0.2-1) Aspartate Amino Transf (AST/SGOT) 15 U/L (15-37) Alanine Aminotransferase (ALT/SGPT) 18 U/L (12-78) Alkaline Phosphatase 109 U/L (45-117) Total Creatine Kinase 86 U/L (39-308) Creatine Kinase MB 0.6 ng/ml (0.5-3.6) Creatine Kinase MB Ratio 0.7 (0-3.0) Total Protein 8.0 gm/dl (6.4-8.2) Albumin 3.3 gm/dl (3.4-5.0) Globulin 4.7 gm/dl (2.5-4.0) Albumin/Globulin Ratio 0.7 (0.9-2) Bedside Troponin I 0.100 ng/ml (0-0.045) Troponin I < 0.015 ng/ml (0-0.045) Laboratory results per my review. Medications Administered Medications (Trade) Dose Ordered Sig/Griselda Route Start Time Stop Time Status Last Admin Dose Admin Famotidine (Pepcid 20mg Iv Push) 20 mg ONE STAT IV 04/19/17 04:04 04/19/17 04:06 DC 04/19/17 04:23 20 MG Al Hydroxide/Mg Hydroxide (Maalox Susp) 30 ml NOW STAT PO 04/19/17 07:13 04/19/17 07:14 DC 04/19/17 08:08 30 ML ECG Indication: chest pain Rate (beats per minute): 65 Rhythm: normal sinus Findings: Q waves (lead 3), no acute ischemic change, no ectopy Comparison ECG Date: 12/28/2016 Change: no significant change ED Course 0249: The patient was evaluated in room B11B. A complete history and physical exam was performed. 0400: I updated the patient on his test results. He states that his pain is moving towards the center of his chest, and now feels more like his normal reflux-like pain. 0710: Upon reevaluation, the patient is feeling better. He still has some slight left chest discomfort. I discussed the findings and the treatment plan with the patient. He verbalizes agreement and understanding. 0825: Patient improved following additional Maalox here, tolerated by mouth without any recurrent symptoms. Discussed with patient close follow-up with family doctor, symptoms to watch and return for, he verbalized understanding was agreeable with plan. Discussed that I feel most likely the initial point-of -care troponin which was elevated was falsely elevated and is a lab error. 2 subsequent regular lab troponins have both been negative. Patient low risk for ACS, only risk factor is age. No other evidence of infectious etiology, PE, or vascular pathology which would elevated troponin. Medical Decision Differential diagnosis: Etiologies such as cardiac ischemia, aortic dissection, pulmonary embolism, pneumonia, pneumothorax, musculoskeletal, infections, pericarditis, myocarditis , esophageal rupture, gastrointestinal, as well as others were entertained. Patient monitored for several hours as a precaution given intermittent nature of pain. I feel the first [id number] troponin was likely a machine air as the follow-up labs troponin was negative and subsequent repeat labs troponin was negative also. Patient with no EKG changes, and only risk factor for ACS is his age. CT otherwise negative, no evidence for PE, PICC line in good position, no other evidence of CHF/effusion/infiltrate. Patient's pain began to change and feel more similar to prior episodes of reflux. Patient's pain then resolved following additional stomach medications including Maalox. No evidence of other vascular etiology, doubt other contributing GI pathology. Discussed with patient follow-up with family doctor as a precaution and discussion of possible need for repeat cardiac evaluation as a precaution given patient's other significant illnesses including the Crohn's. Discussed symptoms to watch and return for, avoidance of food and drink which could contribute to his reflux symptoms, he verbalized understanding was agreeable with plan. Patient well-appearing at time of discharge, tolerating PO, vital signs stable, ambulated with steady gait and felt improved. Patient and comfortable going home. Medication Reconcilliation Current Medication List: was personally reviewed by me Blood Pressure Screening Patient's blood pressure: Normal blood pressure Blood pressure disposition: Did not require urgent referral Impression Primary Impression: Chest pain Scribe Attestation The scribe's documentation has been prepared under my direction and personally reviewed by me in its entirety. I confirm that the note above accurately reflects all work, treatment, procedures, and medical decision making performed by me. Departure Information Dispostion Home / Self-Care Referrals Jp Morales M.D. (PCP) Patient Instructions My [facility] Additional Instructions Please call and follow-up with your family doctor. Please avoid any foods which can contribute to acid reflux. Please continue your regular medications as prescribed. Please discuss with them repeat evaluation by cardiology as a precaution. If you have any recurrent episodes of chest pain, develop dizziness , trouble breathing, vomiting, fevers, swelling in an extremity, numbness/ tingling, bloody stools, or you have any other new or concerning symptoms, please return to the emergency room. Problem Qualifiers Primary Impression: Chest pain Chest pain type: unspecified Qualified Codes: R07.9 - Chest pain, unspecified
--- NOTE | 2017-04-19 07:07 | DIAGNOSTIC IMAGING REPORT ---
(CHEST FOR PE) ANGIO WITH CT DOSE: 300.49 mGy.cm HISTORY: 51 years-old Male presents with acute atypical chest pain and elevated d-dimer level. TECHNIQUE: Multiple CTA images of the chest were obtained after the intravenous administration of 114 ml Optiray 320. Coronal and sagittal MIPS were obtained from the axial data set and were submitted for review. A dose lowering technique was utilized adhering to the principles of ALARA. COMPARISON: Chest radiograph of same day, CTA of the chest 12/27/2016. FINDINGS: CTA: There is adequate opacification of the pulmonary arteries to the level of the distal segmental branches without convincing evidence of acute pulmonary embolism. The thoracic aorta is normal in course and caliber without dissection or aneurysm. Heart size is normal. Left-sided PICC is noted with distal tip terminating within the mid SVC. CT CHEST: 4 mm low attenuating nodule left thyroid is indeterminate. Mild bilateral gynecomastia. No pathologically enlarged lymph nodes of the chest. Minimal linear subsegmental atelectasis or scarring of the posterior basal segment left lower lobe and medial segment right middle lobe. Mild dependent subsegmental bibasilar atelectasis. No pneumothorax, pleural effusion, focal airspace consolidation or pulmonary edema. No suspicious pulmonary nodules or masses identified. Central airways are patent. No acute abnormality of the imaged upper abdomen. Minimal nonspecific left perinephric fat stranding. The bones appear intact. IMPRESSION: No acute intrathoracic abnormality identified, specifically no acute aortic pathology or evidence of pulmonary thromboembolic disease. The above report was generated using voice recognition software. It may contain grammatical, syntax or spelling errors. Electronically signed by: Chepe Zamudio M.D. 04/19/2017 7:06 AM Dictated Date/Time: 04/19/2017 7:00 AM
[2017-04-19] MEDS ORDERED: ALUMINUM/MAGNESIUM SUSP 30 ML UDC PO STA (07:13)
[2017-04-19 07:57] VITALS: PULSE 72; O2SAT 97
[2017-04-19 08:58] VITALS: BP 133/82
== END 2017-04-19 08:59 | disposition home or self-care (01) ==
LOC: C.EDB 02:19
DX: R07.9 Chest pain, unspecified (principal); K50.90 Crohn's disease, unspecified, without complications; K21.9 Gastro-esophageal reflux disease without esophagitis; Z83.3 Family history of diabetes mellitus; Z87.442 Personal history of urinary calculi; Z90.49 Acquired absence of other specified parts of digestive tract; Z80.0 Family history of malignant neoplasm of digestive organs; Z79.899 Other long term (current) drug therapy

== ENCOUNTER 2018-04-11 09:47 | Inpatient (IN) ==
[2018-04-11] MEDS ORDERED: ASPIRIN CHEW 324 MG PO STA (10:06)
[2018-04-11] MEDS ORDERED: dilTIAZem HCl 5 MG/ML 5 ML VIAL IV STA (10:06)
[2018-04-11] MEDS ORDERED: SODIUM CHLORIDE 0.9% 1000ML 1,000 ML IV SCH (10:15)
[2018-04-11] MEDS: dilTIAZem HCl 125 MG in DEXTROSE 5% 100 ML IV SCH (10:33)
[2018-04-11 10:35] LABS: Basophils # (auto) 0.03 K/uL (0-0.2); Basophils % (auto) 0.4 %; Eosinophils # (auto) 0.21 K/uL (0-0.5); Eosinophils % (auto) 2.7 %; Hematocrit (blood only) 42.1 % (42-52); Hemoglobin 13.9 g/dL (14.0-18.0); Immature Granulocytes # (auto) 0.02 K/uL (0.00-0.02); Immature Granulocytes % (auto) 0.3 %; Lymphocytes # (auto) 1.28 K/uL (1.2-3.4); Lymphocytes % (auto) 16.4 %; Mean Platelet Volume 9.6 fL (7.4-10.4); Monocytes # (auto) 0.94 K/uL (0.11-0.59); Monocytes % (auto) 12.1 %; Neutrophils # (auto) 5.31 K/uL (1.4-6.5); Neutrophils % (auto) 68.1 %; Platelet Count 241 K/uL (130-400); RDW Coefficient of Variation 14.6 % (11.5-14.5); RDW Standard Deviation 47.6 fL (36.4-46.3); Red Blood Count 4.68 M/uL (4.7-6.1); White Blood Count 7.79 K/uL (4.8-10.8)
--- NOTE | 2018-04-11 10:39 | XRay Report ---
XR chest 1V portable HISTORY: 52 years-old Male Chest Pain acute atypical chest pain COMPARISON: CTA chest and chest radiograph 04/19/2017 TECHNIQUE: Portable AP view of the chest FINDINGS: Left-sided PICC is noted, distal tip terminating within the expected region of the superior cavoatria l junction. Cardiac mediastinal and hilar silhouettes are within normal limits. There is no pneumotho rax, pleural effusion, focal airspace consolidation or overt pulmonary edema. Bones of the chest appe ar grossly intact. IMPRESSION: No acute process. The above report was generated using voice recognition software. It may contain grammatical, syntax o r spelling errors. Electronically signed by: Chepe Zamudio M.D. 04/11/2018 10:38 AM
[2018-04-11 10:54] LABS: Alanine Aminotransferase 27 U/L (12-78); Albumin Level 3.6 gm/dl (3.4-5.0); Aspartate Aminotransferase 24 U/L (15-37); BUN Creatinine Ratio 9.2 (10-20); Blood Urea Nitrogen 10 mg/dl (7-18); Calcium 9.2 mg/dl (8.5-10.1); Carbon Dioxide 28 mmol/L (21-32); Chloride 108 mmol/L (98-107); Creatinine Clr Calc Pharmacy 89.8 ml/min; Est GFR (African American) 92.3; Est GFR (Non-African American) 79.6; Glucose 94 mg/dl (70-99); Potassium 3.7 mmol/L (3.5-5.1); Sodium 141 mmol/L (136-145)
[2018-04-11 10:59] LABS: Albumin Globulin Ratio 0.8 (0.9-2); Alkaline Phosphatase 128 U/L (45-117); Bilirubin,Total 0.8 mg/dl (0.2-1); Globulin 4.6 gm/dl (2.5-4.0); Total Protein 8.2 gm/dl (6.4-8.2); Troponin I < 0.015 ng/ml (0-0.045)
[2018-04-11 12:22] LABS: Partial Thromboplastin Time 25.6 Seconds (21.0-31.0); Prothrombin Time 10.3 Seconds (9.0-12.0)
[2018-04-11 12:34] LABS: T4 Free Thyroxine 0.93 ng/dl (0.8-1.6)
--- NOTE | 2018-04-11 12:44 | History & Physical Report ---
Date of Service April 11, 2018 Assessment & Plan (1) Atrial fibrillation with RVR: New onset a-fib. Onset palpitations at approx 1AM today. Reports CP lasting 10-15 seconds yesterday when pushing firewood in wheelbarrow, resolved with rest and denies any recurrent CP. Denies any associated dizziness, syncope , diaphoresis. Denies fever/chills, denies ETOH use. In ER pt afebrile, P: 163, R:18, BP: 146/92, 98% RA. WBC: 7.7, Hgb: 13.9 (stable ), Plt: 241, K: 3.7, magnesium:2.0, negative initial troponin. CXR: no acute findings. Found to be in A-fib RVR on EKG with Qwave inferior which were noted on EKG 2017 Was given Cardizem 10mg IV and on Cardizem drip at 5mg/hr with rate in 90's, still in a-fib. Pt reports no further sensation palpitations. -continue cardizem -metoprolol 25mg po BID -trend troponin -blood cultures pending -TSH, T4 pending -echo -cardiology consult, appreciate recommendations -will hold on anticoagulation at this time with pt's hx Crohn's and rectal bleeding and appreciate further input from GI. CHADS score:0 (2) Crohn's disease: Crohn's on IVIg, Stelara, budesonide, and TPN 3x week through PICC. Reports PICC changed in past 6 months. No local erythema/edema at PICC site Hx red blood noted in stools once a week, reports known ulcer to rectum. Denies any increased rectal bleeding, increased diarrhea or stools or abdominal pain. -continue imuran, budesonide, cholestyramine, loperamide -continue TPN 3x week -GI consult, appreciate recommendations on suggestion of anticoagulation if needed (3) GERD (gastroesophageal reflux disease): -continue PPI DVT Prophylaxis -SCDs Disposition: tele Full Code as per discussion with pt Follows with Dr Morales for routine care Pt was seen with Dr Torres. See addendum History of Present Illness Chief Complaint: Palpitations Primary Care Provider: Jp Morales Pt is 52 y/o M with PMH Crohn's on IVIg, Stelara, budesonide, and TPN 3x week through PICC, GERD, h/o kidney stones presented to ER with c/o palpitations woke him up out of sleep at approx 1AM today. Denies any associated CP, dizziness, syncope, diaphoresis. Palpitations continued until in ER today. Pt states yesterday was pushing wheelbarrow with firewood and had anterior mid/ left sided CP that lasted approx 10-15 seconds and resolved with rest. No recurrent CP since. Denies any recent fever/chills. Pt reports chronic rhinitis and was taking sudafed regularly until a couple of weeks ago. Was using flonase but reports no longer using. Denies alcohol use. Follows with Dr Bhavna MARTINEZ at [facility]. Reports chronic small amount of red rectal bleeding approx once a week. He reports known ulcer to rectum which believes causes the bleeding. Denies increased rectal bleeding. Hsa 4 loose BM's daily and denies any increased BMs. Denies abdominal pain, N/V. Pt reports had PICC line replaced in the last 6 months. Denies any surrounding erythema. Reports site has been flushing without difficulty. Denies fever/chills, diaphoresis, WORKMAN, dizziness, syncope, vision changes, neck pain, orthopnea, cough, sore throat, choking, paresthesias , weakness, extremity weakness, extremity edema, rashes, urinary symptoms. Denies hx CHF, diabetes, vascular disorders. hx hospitalization 12/2016 for CP. Had stress echo with no evidence ischemia. EF : 55-60%, no significant valvular issues. Allergies Allergy/AdvReac Type Severity Reaction Status Date / Time Sulfa (Sulfonamide Allergy Unknown UNKNOWN Verified 04/11/18 10:16 Antibiotics) infliximab AdvReac Severe " LUPUS Verified 04/11/18 10:16 SYMPTOMS" Home Medications Home Medications Medication Instructions Recorded Confirmed Type Bivigam 1 dose IV Q4WK 04/11/18 04/11/18 History TPN Electrolytes 1 dose IV 3XWK 04/11/18 04/11/18 History acetaminophen [Tylenol] 325 mg PO Q6H PRN 04/11/18 04/11/18 History azathioprine 150 mg PO DAILY 04/11/18 04/11/18 History budesonide 3 mg PO DAILY 04/11/18 04/11/18 History calcium carbonate [Calcium 600] 600 mg PO DAILY 04/11/18 04/11/18 History cholestyramine (with sugar) 6 g PO BID 04/11/18 04/11/18 History cyanocobalamin (vitamin B-12) 1,000 mcg IM WK 04/11/18 04/11/18 History ergocalciferol (vitamin D2) 50,000 units PO 2XWK 04/11/18 04/11/18 History loperamide 4 mg PO TIDM 04/11/18 04/11/18 History metronidazole 250 mg PO UD 04/11/18 04/11/18 History omeprazole 20 mg PO BID 04/11/18 04/11/18 History ustekinumab [Stelara] 1 dose SUBCUT UD 04/11/18 04/11/18 History zoledronic fadq-[id number]-ypfrz 5 mg IV YEARLY 04/11/18 04/11/18 History [Reclast] Past Med/Surg History Medical History Crohn's disease (Chronic) "s/p small bowel resection" Long-term use of immunosuppressant medication (Chronic) Stelara, Imuran, IVIG" On 07/13/15 11:34 Sully Dumont wrote "Cimzia, Imuran, IVIG" GERD (gastroesophageal reflux disease) (Chronic) History of Lyme disease (Resolved) History of urinary calculi (Chronic) Malnutrition (Chronic) Chest pain (Resolved) Surgical History History of bowel resection (Chronic) "2/3rds small bowel removed 2* crohns" Status post cystoscopy (Resolved) "with ureteral stent" Family History Father Arrhythmia Pacemaker Other Pancreatic cancer Social History Current Living Situation: Spouse Other Information That Helps Us Care for You: Yes Feels Safe at Home: Yes Safety Concerns: Feels Safe At This Time Smoking Status: Never smoker Hx Alcohol Use: No Hx Substance Use: No Beliefs That Will Affect Care: None Preferred Language: Frisian Communication Ability: Effective Group Reservations Coordinator Required: No Review of Systems All systems reviewed & are unremarkable except as noted in HPI & below Physical Exam 2 Vital Signs (Past 24 Hours): Last Vital Signs Temp 36.6 C 04/11/18 09:50 Pulse 94 H 04/11/18 11:44 Resp 18 04/11/18 11:44 BP 113/79 04/11/18 11:44 Pulse Ox 98 04/11/18 11:44 Physical Exam: General: no distress, WDWN Head: normocephalic, atraumatic Eyes: PERRL, EOM's intact, conjunctiva non-injected, anicteric ENT: normal inspection external ears, nose, some tenderness to palpation L maxillary sinus, mucous membranes moist Neck: supple, trachea midline, non-tender Lungs: clear, no respiratory distress, no wheezing/rhonchi/rales CV: irregularly, irregular, rate 96, no murmur, no JVD, no pretibial edema Abd: normal BS, soft, non-tender Ext: no cyanosis, no calf tenderness; LLE: PICC in place without erythema/edema Neuro: A&O x 3, no focal deficits noted, normal affect Skin: warm, dry Results & Data Laboratory Results Short CBC 04/11/18 Range/Units 10:20 WBC 7.79 (4.8-10.8) K/uL Hgb 13.9 L (14.0-18.0) g/dL Hct 42.1 (42-52) % Plt Count 241 (130-400) K/uL BMP 04/11/18 10:20 Sodium 141 Potassium 3.7 Chloride 108 H Carbon Dioxide 28 BUN 10 Creatinine 1.08 Glucose 94 Calcium 9.2 Cardiac Enzymes 04/11/18 Range/Units 10:20 Troponin I < 0.015 (0-0.045) ng/ml Liver Function 04/11/18 Range/Units 10:20 Total Bilirubin 0.8 (0.2-1) mg/dl AST 24 (15-37) U/L ALT 27 (12-78) U/L Alkaline Phosphatase 128 H (45-117) U/L Albumin 3.6 (3.4-5.0) gm/dl Diagnostic Findings CXR: Left-sided PICC is noted, distal tip terminating within the expected region of the superior cavoatrial junction. Cardiac mediastinal and hilar silhouettes are within normal limits. There is no pneumothorax, pleural effusion, focal airspace consolidation or overt pulmonary edema ECG Rate (beats per minute): 158 Rhythm: atrial fibrillation Additional Comments: Q waves inferior EKG 12/2016: Q waves in inferior leads noted Supervising Physician Co-Signing Physician Notes I have seen and examined the patient and have discussed the case with the provider above. I agree with the assessment and plan as stated. Of note, he has had an issue with persistent rhinitis and consistent Sudafed usage until 2 weeks ago. He has maxillary sinus pain on the left on exam today and has persistent rhinitis symptoms. No other OTC meds or herbals reported. No caffeine or ETOH use. Cont workup/treatment as above. DO Brian
[2018-04-11] MEDS ORDERED: ACETAMINOPHEN 325 MG TAB PO PRN (14:28)
[2018-04-11] MEDS ORDERED: TPN/PPN CONSULT PHARMACY PRN (15:10)
--- NOTE | 2018-04-11 15:10 | Cardiology Consultation ---
Date of Consultation April 11, 2018 Assessment & Plan (1) Atrial fibrillation with RVR: 52-year-old gentleman presents for evaluation of new onset rapid atrial fibrillation. Rate improved with intravenous diltiazem. Recommend metoprolol 25 mg twice daily. Patient will receive his first dose now. Will wean diltiazem infusion as tolerated. CHADS2 and [id number] scores are 0. Will not add anticoagulation at this time. If patient atrial fibrillation remains persistent and he is symptomatic after 48 hours will consider cardioversion with 4 weeks of anticoagulation at that time. Repeat resting 2D transthoracic echocardiogram ordered. Baseline electrolytes and thyroid function within normal range. Thank you for allowing to participate in the care of your patient. (2) Crohn's disease: History of Present Illness Reason for Consultation: Paroxysmal atrial fibrillation Requesting Physician: Dr. Yassine Hawthorne MD Attending Physician: Yassine Hawthorne MD History of Present Illness 52-year-old patient presented emergency department with palpitations. Patient describes a rapid irregular heartbeat beginning at approximately 1 AM. No associated chest pain, however, he noted a [id number] episode of left-sided discomfort while pushing a wheelbarrow full of firewood the evening prior to presentation. Described as sharp discomfort which lasted approximately 15 seconds. No radiation. No associated shortness of currently is aware of his heart rate is mild palpitations. Heart rate currently 100 bpm. Denies shortness of breath at rest. No lightheadedness, dizziness, syncope, or near syncope. Denies orthopnea, PND, lower extreme edema, claudication. Carries a history of long-standing Crohn's status post small bowel resection. Receiving hyperalimentation 3 days/week. No prior history of atrial fibrillation. Previously evaluated by cardiology approximately 1 year ago in the setting of atypical chest discomfort. Exercise stress echo performed during that hospitalization negative for inducible ischemia. His resting 2D transthoracic echocardiogram demonstrated normal left ventricular size and function with normal left atrial dimensions. No significant valvular pathology. Allergies Allergy/AdvReac Type Severity Reaction Status Date / Time Sulfa (Sulfonamide Allergy Unknown UNKNOWN Verified 04/11/18 10:16 Antibiotics) infliximab AdvReac Severe " LUPUS Verified 04/11/18 10:16 SYMPTOMS" Home Medications Home Medications Medication Instructions Recorded Confirmed Type Bivigam 1 dose IV Q4WK 04/11/18 04/11/18 History TPN Electrolytes 1 dose IV 3XWK 04/11/18 04/11/18 History acetaminophen [Tylenol] 325 mg PO Q6H PRN 04/11/18 04/11/18 History azathioprine 150 mg PO DAILY 04/11/18 04/11/18 History budesonide 3 mg PO DAILY 04/11/18 04/11/18 History calcium carbonate [Calcium 600] 600 mg PO DAILY 04/11/18 04/11/18 History cholestyramine (with sugar) 6 g PO BID 04/11/18 04/11/18 History cyanocobalamin (vitamin B-12) 1,000 mcg IM WK 04/11/18 04/11/18 History ergocalciferol (vitamin D2) 50,000 units PO 2XWK 04/11/18 04/11/18 History loperamide 4 mg PO TIDM 04/11/18 04/11/18 History metronidazole 250 mg PO UD 04/11/18 04/11/18 History omeprazole 20 mg PO BID 04/11/18 04/11/18 History ustekinumab [Stelara] 1 dose SUBCUT UD 04/11/18 04/11/18 History zoledronic feqw-xskllrww-xzsxt 5 mg IV YEARLY 04/11/18 04/11/18 History [Reclast] Patient History Medical History Crohn's disease (Chronic) "s/p small bowel resection" Long-term use of immunosuppressant medication (Chronic) Stelara, Imuran, IVIG" On 07/13/15 11:34 Sully Dumont wrote "Cimzia, Imuran, IVIG" GERD (gastroesophageal reflux disease) (Chronic) History of Lyme disease (Resolved) History of urinary calculi (Chronic) Malnutrition (Chronic) Chest pain (Resolved) Surgical History History of bowel resection (Chronic) "2/3rds small bowel removed 2* crohns" Status post cystoscopy (Resolved) "with ureteral stent" Family History Father Arrhythmia Pacemaker Other Pancreatic cancer Social History Current Living Situation: Spouse Other Information That Helps Us Care for You: Yes Feels Safe at Home: Yes Safety Concerns: Feels Safe At This Time Smoking Status: Never smoker Hx Alcohol Use: No Hx Substance Use: No Beliefs That Will Affect Care: None Preferred Language: Sinhala Communication Ability: Effective Signal Circuit Designer Required: No Review of Systems Pertinent positives noted per HPI, comprehensive 10 system review otherwise negative. Physical Exam 2 Vital Signs (Past 24 Hours): Last Vital Signs Temp 37.1 C 04/11/18 14:18 Pulse 130 H 04/11/18 14:28 Resp 16 04/11/18 14:18 BP 132/84 04/11/18 14:28 Pulse Ox 97 04/11/18 14:18 Physical Exam: General: NAD, AAO x3, well nourished. HEENT: Normocephalic. Atraumatic. Conjunctiva pink, no scleral icterus. Neck: No carotid bruits, the carotid upstrokes are brisk. No JVD. No HJR Heart: Irregular, tachycardic, normal S-1 and S-2 no S-3 or S-4 gallop. No murmurs or rub appreciated. PMI is not displaced. No RV heave. Lungs: Clear bilateral without rales , rhonchi, or wheeze. Abdomen: Normal bowel sounds. Soft. Nontender. No masses or organomegaly. No abdominal bruits. Extremities: No clubbing, cyanosis, or edema. Pulses: radial=2/4, Dorsalis pedis =2/4, posterior tibial=2/4. Neuro: Cranial nerves grossly intact. No focal motor deficit. _ (1) Crohn's disease Gastrointestinal tract location: small intestine Digestive disease complication type: with fistula Qualified Code(s): 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
[2018-04-11] MEDS: METOPROLOL TARTRATE 25 MG TAB PO SCH ×2 (15:16→20:42)
--- NOTE | 2018-04-11 15:52 | Emergency Department Note ---
Entered by Anna Nielsen acting as a scribe for History of Present Illness General Chief complaint: Arrhythmia/Palpitations Stated complaint: IRREGULAR HEARTBEAT AND RATE Source: patient Mode of arrival: ambulatory Limitations: no limitations History of Present Illness Onset (ago): hour(s) (0130 this morning) Location: chest Pain Consistency: + constant Quality: + other (tightness) Associated symptoms: + other (The patient denies abdominal pain, diarrhea, and urinary symptoms. ); no chest pain, no cough, no nausea/vomiting and no shortness of breath The patient is a 52 year old male who presents to the ED with complaints of constant arrhythmia with an onset of 0130 this morning. The patient presents today with his . The patient states that last night he was pushing a wheelbarrow at 1700 and developed some chest discomfort. He notes that chest palpitations woke him up this morning at 0130 from sleep. He describes the pain as tightness. The patient denies chest pain, cough, shortness of breath, abdominal pain, nausea, vomiting, diarrhea, and urinary symptoms. He states that he has a history of Crohns disease. The patient notes that he has a PICC line. The patient states that his father had atrial fibrillation and a pacemaker. Home Medications Home Medications Medication Instructions Recorded Confirmed Type Bivigam 1 dose IV Q4WK 04/11/18 04/11/18 History TPN Electrolytes 1 dose IV 3XWK 04/11/18 04/11/18 History acetaminophen [Tylenol] 325 mg PO Q6H PRN 04/11/18 04/11/18 History azathioprine 150 mg PO DAILY 04/11/18 04/11/18 History budesonide 3 mg PO DAILY 04/11/18 04/11/18 History calcium carbonate [Calcium 600] 600 mg PO DAILY 04/11/18 04/11/18 History cholestyramine (with sugar) 6 g PO BID 04/11/18 04/11/18 History cyanocobalamin (vitamin B-12) 1,000 mcg IM WK 04/11/18 04/11/18 History ergocalciferol (vitamin D2) 50,000 units PO 2XWK 04/11/18 04/11/18 History loperamide 4 mg PO TIDM 04/11/18 04/11/18 History metronidazole 250 mg PO UD 04/11/18 04/11/18 History omeprazole 20 mg PO BID 04/11/18 04/11/18 History ustekinumab [Stelara] 1 dose SUBCUT UD 04/11/18 04/11/18 History zoledronic wkbw-nyyydeyi-xpafd 5 mg IV YEARLY 04/11/18 04/11/18 History [Reclast] Allergies Allergy/AdvReac Type Severity Reaction Status Date / Time Sulfa (Sulfonamide Allergy Unknown UNKNOWN Verified 04/11/18 10:16 Antibiotics) infliximab AdvReac Severe " LUPUS Verified 04/11/18 10:16 SYMPTOMS" Past Med/Surg History Medical History Crohn's disease (Chronic) "s/p small bowel resection" Long-term use of immunosuppressant medication (Chronic) Stelara, Imuran, IVIG" On 07/13/15 11:34 Sully Dumont wrote "Cimzia, Imuran, IVIG" GERD (gastroesophageal reflux disease) (Chronic) History of Lyme disease (Resolved) History of urinary calculi (Chronic) Malnutrition (Chronic) Chest pain (Resolved) Surgical History History of bowel resection (Chronic) "2/3rds small bowel removed 2* crohns" Status post cystoscopy (Resolved) "with ureteral stent" Family History Father Arrhythmia Pacemaker Other Pancreatic cancer Social History Current Living Situation: Spouse Other Information That Helps Us Care for You: Yes Feels Safe at Home: Yes Safety Concerns: Feels Safe At This Time Smoking Status: Never smoker Hx Alcohol Use: No Hx Substance Use: No Beliefs That Will Affect Care: None Preferred Language: Danish Communication Ability: Effective Glass 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 and A total of 10 systems reviewed and were otherwise negative Physical Exam Vital Signs Vital Signs - 24 hr 04/11/18 09:50 04/11/18 10:23 04/11/18 10:35 Temperature 36.6 C Temperature Source Oral Sepsis Recent Fever Within 48 Hours No Sepsis New/Unexplained Change in Mental Status No Sepsis Action Taken by Nursing No Action Required Pulse Rate 79 Pulse Rate [Apical] 163 H Pulse Rhythm [Apical] Pulse Strength [Apical] Respiratory Rate 18 18 Respiratory Effort / Characteristics Non-Labored Spontaneous Non-Labored Spontaneous Respiratory Depth Normal Normal Respiratory Pattern Regular Blood Pressure 143/94 H Blood Pressure [Right Arm] 146/92 H Blood Pressure Mean 110 Blood Pressure Mean [Right Arm] 110 Blood Pressure Position Sitting Blood Pressure Position [Right Arm] Sitting Pulse Oximetry 98 97 98 Oxygen Delivery Method Room Air Room Air Room Air 04/11/18 10:54 04/11/18 11:44 04/11/18 13:18 Temperature Temperature Source Sepsis Recent Fever Within 48 Hours Sepsis New/Unexplained Change in Mental Status Sepsis Action Taken by Nursing Pulse Rate Pulse Rate [Apical] 92 H 94 H 95 H Pulse Rhythm [Apical] Irregular Pulse Strength [Apical] Respiratory Rate 18 18 16 Respiratory Effort / Characteristics Non-Labored Spontaneous Non-Labored Spontaneous Non-Labored Spontaneous Respiratory Depth Normal Normal Normal Respiratory Pattern Regular Blood Pressure Blood Pressure [Right Arm] 118/85 113/79 117/87 Blood Pressure Mean Blood Pressure Mean [Right Arm] 96 90 97 Blood Pressure Position Blood Pressure Position [Right Arm] Lying Lying Lying Pulse Oximetry 98 98 98 Oxygen Delivery Method Room Air Room Air Room Air 04/11/18 14:18 04/11/18 14:28 Temperature 37.1 C Temperature Source Oral Sepsis Recent Fever Within 48 Hours Sepsis New/Unexplained Change in Mental Status Sepsis Action Taken by Nursing Pulse Rate Pulse Rate [Apical] 97 H 130 H Pulse Rhythm [Apical] Irregular Pulse Strength [Apical] Normal Respiratory Rate 16 Respiratory Effort / Characteristics Non-Labored Spontaneous Respiratory Depth Normal Respiratory Pattern Regular Blood Pressure Blood Pressure [Right Arm] 132/84 132/84 Blood Pressure Mean Blood Pressure Mean [Right Arm] 100 100 Blood Pressure Position Blood Pressure Position [Right Arm] Lying Pulse Oximetry 97 Oxygen Delivery Method Room Air GENERAL: Sitting up in bed, anxious, well appearing, no acute distress, non- toxic EYE EXAM: normal conjunctiva. OROPHARYNX: no exudate, no erythema, lips, buccal mucosa, and tongue normal and mucous membranes are moist NECK: supple, no nuchal rigidity, no adenopathy, non-tender LUNGS: Clear to auscultation. Normal chest wall mechanics HEART: Tachycardic, irregularly irregular ABDOMEN: abdomen soft, non-tender, normo-active bowel, sounds, no masses, no rebound or guarding. BACK: Back is symmetrical on inspection and there is no deformity, no midline tenderness, no CVA tenderness. SKIN: no rashes and no bruising UPPER EXTREMITIES: Radial pulses equal bilateral LOWER EXTREMITIES: Calves are equal bilaterally. NEURO EXAM: Normal sensorium, cranial nerves II-XII grossly intact, normal speech, no gross weakness of arms, no gross weakness of legs. Course 0955: Past medical records reviewed. The patient was evaluated in room B11B, and a complete history and physical examination were performed. 1100: I reviewed the patient's case with Mary Ruiz. will evaluate the patient for further management. 1104: I updated the patient. Upon reevaluation, the patient is resting comfortably. His heart rate is in the 90s. Consultations Consultation #1: 1100: I reviewed the patient's case with Mary Ruiz. will evaluate the patient for further management. Time: 11:00 Administered Medications Azathioprine (Imuran) 150 mg PO DAILY [facility] Stop: 05/12/18 08:59 Last Admin: 04/11/18 15:10 Dose: 150 mg Budesonide (Entocort Ec) 3 mg PO DAILY [facility] Stop: 05/12/18 08:59 Last Admin: 04/11/18 15:10 Dose: 3 mg Diltiazem HCl 125 mg/ Dextrose 125 mls @ 5 mls/hr IV .Q24H [facility]; Protocol Stop: 05/11/18 10:14 Last Titration: 04/11/18 14:44 Dose: 10 mg/hr, 10 mls/hr Admin: 04/11/18 10:33 Dose: 5 mg/hr, 5 mls/hr Metoprolol Tartrate (Lopressor) 25 mg PO BID [facility] Stop: 05/11/18 12:44 Last Admin: 04/11/18 15:16 Dose: 25 mg Multivitamins/Minerals (Caltrate Plus) 1 tab PO DAILY [facility] Stop: 05/12/18 08:59 Last Admin: 04/11/18 15:08 Dose: 1 tab Discontinued Medications Aspirin (Aspirin) 324 mg PO NOW STA Stop: 04/11/18 10:07 Last Admin: 04/11/18 10:42 Dose: Not Given Diltiazem HCl (Cardizem) 10 mg IV NOW STA Stop: 04/11/18 10:07 Last Admin: 04/11/18 10:30 Dose: 10 mg Sodium Chloride (Nss 1000ml) 1,000 mls @ 999 mls/hr IV .Q1H1M [facility] Stop: 04/11/18 11:15 Last Infusion: 04/11/18 11:37 Dose: 0 mls/hr Admin: 04/11/18 10:40 Dose: 999 mls/hr Medical Decision Making Differential Diagnosis Differential diagnosis: Etiologies such as shingles, musculoskeletal pain, pericarditis, myocarditis, cardiac ischemia, pericardial tamponade, pneumonia, pneumothorax, pleural effusion, hemothorax, pleurisy, aortic pathology, pulmonary embolism, intra- abdominal process, as well as others were considered. Medical Records Attestation: I reviewed the patient's medical records. Home Medications Current Medication List: was personally reviewed by me Laboratory Data Attestation: I reviewed the patient's lab results. Result diagrams: 04/11/18 10:20 04/11/18 10:20 Lab Results 04/11/18 04/11/18 04/11/18 Range/Units 10:20 10:20 10:20 WBC 7.79 (4.8-10.8) K/uL RBC 4.68 L (4.7-6.1) M/uL Hgb 13.9 L (14.0-18.0) g/dL Hct 42.1 (42-52) % MCV 90.0 (80-100) fL MCH 29.7 (25-34) pg MCHC 33.0 (32-36) g/dL RDW Std Deviation 47.6 H (36.4-46.3) fL RDW Coeff of Joi 14.6 H (11.5-14.5) % Plt Count 241 (130-400) K/uL MPV 9.6 (7.4-10.4) fL Immature Gran % (Auto) 0.3 % Neut % (Auto) 68.1 % Lymph % (Auto) 16.4 % [place] % (Auto) 12.1 % Eos % (Auto) 2.7 % Baso % (Auto) 0.4 % Immature Gran # (Auto) 0.02 (0.00-0.02) K/uL Neut # (Auto) 5.31 (1.4-6.5) K/uL Lymph # (Auto) 1.28 (1.2-3.4) K/uL [place] # (Auto) 0.94 H (0.11-0.59) K/uL Eos # (Auto) 0.21 (0-0.5) K/uL Baso # (Auto) 0.03 (0-0.2) K/uL PT 10.3 (9.0-12.0) Seconds INR 1.0 (0.9-1.1) APTT 25.6 (21.0-31.0) Seconds PTT Ratio 1.0 Sodium 141 (136-145) mmol/L Potassium 3.7 (3.5-5.1) mmol/L Chloride 108 H (98-107) mmol/L Carbon Dioxide 28 (21-32) mmol/L Anion Gap 5.0 (3-11) BUN 10 (7-18) mg/dl Creatinine 1.08 (0.6-1.4) mg/dl Est Cr Clr Drug Dosing 89.8 ml/min Est GFR ( Amer) 92.3 Est GFR (Non-Af Amer) 79.6 BUN/Creatinine Ratio 9.2 L (10-20) Glucose 94 (70-99) mg/dl Calcium 9.2 (8.5-10.1) mg/dl Magnesium 2.0 (1.8-2.4) mg/dl Total Bilirubin 0.8 (0.2-1) mg/dl AST 24 (15-37) U/L ALT 27 (12-78) U/L Alkaline Phosphatase 128 H (45-117) U/L Troponin I < 0.015 (0-0.045) ng/ml Total Protein 8.2 (6.4-8.2) gm/dl Albumin 3.6 (3.4-5.0) gm/dl Globulin 4.6 H (2.5-4.0) gm/dl Albumin/Globulin Ratio 0.8 L (0.9-2) Lipase 124 (73-393) U/L TSH (0.300-4.500) uIu/ml Free T4 (0.8-1.6) ng/dl 04/11/18 Range/Units 10:20 WBC (4.8-10.8) K/uL RBC (4.7-6.1) M/uL Hgb (14.0-18.0) g/dL Hct (42-52) % MCV (80-100) fL MCH (25-34) pg MCHC (32-36) g/dL RDW Std Deviation (36.4-46.3) fL RDW Coeff of Joi (11.5-14.5) % Plt Count (130-400) K/uL MPV (7.4-10.4) fL Immature Gran % (Auto) % Neut % (Auto) % Lymph % (Auto) % [place] % (Auto) % Eos % (Auto) % Baso % (Auto) % Immature Gran # (Auto) (0.00-0.02) K/uL Neut # (Auto) (1.4-6.5) K/uL Lymph # (Auto) (1.2-3.4) K/uL [place] # (Auto) (0.11-0.59) K/uL Eos # (Auto) (0-0.5) K/uL Baso # (Auto) (0-0.2) K/uL PT (9.0-12.0) Seconds INR (0.9-1.1) APTT (21.0-31.0) Seconds PTT Ratio Sodium (136-145) mmol/L Potassium (3.5-5.1) mmol/L Chloride (98-107) mmol/L Carbon Dioxide (21-32) mmol/L Anion Gap (3-11) BUN (7-18) mg/dl Creatinine (0.6-1.4) mg/dl Est Cr Clr Drug Dosing ml/min Est GFR ( Amer) Est GFR (Non-Af Amer) BUN/Creatinine Ratio (10-20) Glucose (70-99) mg/dl Calcium (8.5-10.1) mg/dl Magnesium (1.8-2.4) mg/dl Total Bilirubin (0.2-1) mg/dl AST (15-37) U/L ALT (12-78) U/L Alkaline Phosphatase (45-117) U/L Troponin I (0-0.045) ng/ml Total Protein (6.4-8.2) gm/dl Albumin (3.4-5.0) gm/dl Globulin (2.5-4.0) gm/dl Albumin/Globulin Ratio (0.9-2) Lipase (73-393) U/L TSH 4.610 H (0.300-4.500) uIu/ml Free T4 0.93 (0.8-1.6) ng/dl Imaging Data Radiologist's Impression: Radiology results as stated below per my review and the radiologist's interpretation: XR chest 1V portable HISTORY: 52 years-old Male Chest Pain acute atypical chest pain COMPARISON: CTA chest and chest radiograph 04/19/2017 TECHNIQUE: Portable AP view of the chest FINDINGS: Left-sided PICC is noted, distal tip terminating within the expected region of the superior cavoatrial junction. Cardiac mediastinal and hilar silhouettes are within normal limits. There is no pneumothorax, pleural effusion, focal airspace consolidation or overt pulmonary edema. Bones of the chest appear grossly intact. IMPRESSION: No acute process. The above report was generated using voice recognition software. It may contain grammatical, syntax or spelling errors. Electronically signed by: Chepe Zamudio M.D. 04/11/2018 10:38 AM Dictated: 04/11/18 1034 Transcribed: 04/11/18 1034 ECG Data Attestation: I personally reviewed and interpreted this ECG as follows: Indication: palpitations Rate (beats per minute): 158 Rhythm: atrial fibrillation Findings: + other (RVR, normal axis, non specific ST changes in the lateral. ) and + PVC Blood Pressure Blood Pressure Findings: Normal blood pressure MDM Narrative Patient is a 52-year-old male who presents the ER for feeling his heart race. Upon presentation he was found to be in A. fib with RVR. Heart rates in the 160s-180s. EKG shows some mild ST depressions in the lateral leads. Labs were obtained and showed no significant leukocytosis or anemia. INR was normal. BMP along with LFTs bilirubin and lipase was unremarkable. Troponin was negative. Chest x-ray was unremarkable. He was given IV bolus of Cardizem and placed on a Cardizem drip. Heart rate trended down to the 90s to low 100s. He remained in A. fib. He was updated at bedside. He was admitted to the hospitalist for A. fib with RVR. I did discuss my findings with both the patient and his at bedside. Impression & Plan Atrial fibrillation with RVR, Tachycardia Critical Care Time I have personally spent greater than 35 minutes of critical care time in the direct management of this patient. This includes bedside care, interpretation of diagnostic studies, and testing, discussion with consultants, patient, and family members, and other required patient management activities. This 35 minutes is in excess of all separately billable procedures. Critical Care Time: Yes (35) Total Critical Care Time: 35 Discharge Plan Visit Data *Final* Discharge Date/Time: 04/11/18 14:04 Chief Complaint: Arrhythmia/Palpitations Stated Complaint: IRREGULAR HEARTBEAT AND RATE ED Provider: Jf Vieira Discharge Problem: Atrial fibrillation with RVR, Tachycardia Patient Disposition: Admitted As Inpatient Discharge Instructions Interventions: ED Discharge Assessment Last Done: 04/11/18 14:04 The scribe's documentation has been prepared under my direction and personally reviewed by me in its entirety. I confirm that the note above accurately reflects all work, treatment, procedures, and medical decision making performed by me.
[2018-04-11] MEDS ORDERED: PERFLUTREN LIPID MICROSPHERE (DEFINITY) IV ONE (15:55)
[2018-04-11] MEDS: LOPERAMIDE HCL 2 MG CAP PO SCH (16:43)
[2018-04-11] MEDS: PANTOprazole 40 MG TAB PO SCH (16:44)
[2018-04-11] MEDS: CHOLESTYRAMINE LIGHT 4 GM PKT PO SCH (16:44)
[2018-04-11] MEDS ORDERED: CENTRAL PN IV SCH (19:00)
[2018-04-11] MEDS ORDERED: PANTOprazole 40 MG TAB PO SCH (21:00)
[2018-04-12] MEDS ORDERED: [UNRECOGNIZED DRUG - REMARK] SCH (05:00)
[2018-04-12] MEDS: CHOLESTYRAMINE LIGHT 4 GM PKT PO SCH (06:50)
[2018-04-12] MEDS: LOPERAMIDE HCL 2 MG CAP PO SCH ×2 (06:51→11:26)
[2018-04-12] MEDS: PANTOprazole 40 MG TAB PO SCH (06:51)
[2018-04-12 06:57] LABS: Basophils # (auto) 0.02 K/uL (0-0.2); Basophils % (auto) 0.2 %; Eosinophils # (auto) 0.17 K/uL (0-0.5); Eosinophils % (auto) 2.1 %; Hematocrit (blood only) 38.3 % (42-52); Hemoglobin 12.7 g/dL (14.0-18.0); Immature Granulocytes # (auto) 0.02 K/uL (0.00-0.02); Immature Granulocytes % (auto) 0.2 %; Lymphocytes # (auto) 1.54 K/uL (1.2-3.4); Lymphocytes % (auto) 18.7 %; Mean Corpuscular Hgb Conc 33.2 g/dL (32-36); Mean Corpuscular Volume 89.9 fL (80-100); Mean Platelet Volume 9.4 fL (7.4-10.4); Monocytes # (auto) 1.16 K/uL (0.11-0.59); Monocytes % (auto) 14.1 %; Neutrophils # (auto) 5.34 K/uL (1.4-6.5); Neutrophils % (auto) 64.7 %; Platelet Count 230 K/uL (130-400); RDW Coefficient of Variation 14.5 % (11.5-14.5); Red Blood Count 4.26 M/uL (4.7-6.1); White Blood Count 8.25 K/uL (4.8-10.8)
[2018-04-12 07:37] LABS: BUN Creatinine Ratio 24.8 (10-20); Calcium 8.3 mg/dl (8.5-10.1); Creatinine Clr Calc Pharmacy 116.9 ml/min; Est GFR (African American) 118.9; Est GFR (Non-African American) 102.6; Magnesium 2.8 mg/dl (1.8-2.4); Potassium 4.2 mmol/L (3.5-5.1)
[2018-04-12] MEDS: METOPROLOL TARTRATE 25 MG TAB PO SCH (08:27)
[2018-04-12] MEDS ORDERED: azaTHIOprine 50 MG TAB PO SCH ×2 (09:00→12:00)
[2018-04-12] MEDS ORDERED: CALCIUM 600MG + VIT D 400 IU TAB PO SCH ×2 (09:00→12:00)
[2018-04-12] MEDS ORDERED: BUDESONIDE EC 3 MG CAP PO SCH ×2 (09:00→12:00)
[2018-04-12] MEDS: dilTIAZem HCl 125 MG in DEXTROSE 5% 100 ML IV SCH (09:12)
--- NOTE | 2018-04-12 09:32 | Gastrointestinal Consultation ---
Date of Consultation April 12, 2018 Assessment & Plan (1) Crohn's disease: -From review of cardiology notes, it appears this patient will not require any senior living anticoagulation therapy at this time. If Afib recurs, would defer to cardiology in regard to anticoagulation recommendations. -Continue current treatment for Crohn's disease as per Dr. Booth. -Routine follow up with Dr. Booth as scheduled. -Will sign off at this time. Supervising Physician Co-Signing Physician Notes Agree with JUAN DANIEL Dickerson as above Abd: Soft, NT, ND, +BS Continue current therapy Followup with Dr. Booth as scheduled History of Present Illness Reason for Consultation: Crohn's disease Requesting Physician: Mary Nieves PA-C Attending Physician: Yassine Hawthorne MD History of Present Illness Robb Nielsen is a complex 52 year-old male with a history of stricturing and fistulizing Crohn's disease as well as hypogammaglobulinemia following Dr. Eloy Booth at [facility] for chronic medical management. The patient was initially diagnosed in 1989 with small bowel disease requiring a large small bowel resection with approximately 130 cm of remaining small bowel. Due to this, he has been having chronic issues with malabsorption and requires intermittent use of TPN and nutritional supplementation. He is also receiving IVIG, intermittent oral antibiotics, Entocort, Stelara, and Azathioprine for maintenance treatment of his Crohn's disease. At present, he reports he is relatively stable at this time. After seton placement, fistulas have resolved. Denies any abdominal pain. Bms are 3-4 times per day with loose to watery consistency depending on dietary intake. He uses Questran powder in this regard. Occasional bright red blood in stools which he attributes to known "ulcer" in the bowel. No bleeding at present. No nausea or vomiting, arthralgias, eye pain/redness, edema or fatigue. Denies any chest pain or palpitations at present or shortness of breath. Allergies Allergy/AdvReac Type Severity Reaction Status Date / Time Sulfa (Sulfonamide Allergy Unknown UNKNOWN Verified 04/11/18 10:16 Antibiotics) infliximab AdvReac Severe " LUPUS Verified 04/11/18 10:16 SYMPTOMS" Home Medications Home Medications Medication Instructions Recorded Confirmed Type Bivigam 1 dose IV Q4WK 04/11/18 04/11/18 History TPN Electrolytes 1 dose IV 3XWK 04/11/18 04/11/18 History acetaminophen [Tylenol] 325 mg PO Q6H PRN 04/11/18 04/11/18 History azathioprine 150 mg PO DAILY 04/11/18 04/11/18 History budesonide 3 mg PO DAILY 04/11/18 04/11/18 History calcium carbonate [Calcium 600] 600 mg PO DAILY 04/11/18 04/11/18 History cholestyramine (with sugar) 6 g PO BID 04/11/18 04/11/18 History cyanocobalamin (vitamin B-12) 1,000 mcg IM WK 04/11/18 04/11/18 History ergocalciferol (vitamin D2) 50,000 units PO 2XWK 04/11/18 04/11/18 History loperamide 4 mg PO TIDM 04/11/18 04/11/18 History metronidazole 250 mg PO UD 04/11/18 04/11/18 History omeprazole 20 mg PO BID 04/11/18 04/11/18 History ustekinumab 1 dose SUBCUT UD 04/11/18 04/11/18 History zoledronic wldk-oohypxbo-zqaqv 5 mg IV YEARLY 04/11/18 04/11/18 History [Reclast] metoprolol tartrate 25 mg PO BID #60 tab 04/12/18 Rx Patient History Medical History Crohn's disease (Chronic) "s/p small bowel resection" Long-term use of immunosuppressant medication (Chronic) Stelara, Imuran, IVIG" On 07/13/15 11:34 Sully Dumont wrote "Cimzia, Imuran, IVIG" GERD (gastroesophageal reflux disease) (Chronic) History of Lyme disease (Resolved) History of urinary calculi (Chronic) Malnutrition (Chronic) Chest pain (Resolved) Surgical History History of bowel resection (Chronic) "2/3rds small bowel removed 2* crohns" Status post cystoscopy (Resolved) "with ureteral stent" Family History Father Arrhythmia Pacemaker Other Pancreatic cancer Social History Current Living Situation: Spouse Other Information That Helps Us Care for You: Yes Feels Safe at Home: Yes Safety Concerns: Feels Safe At This Time Smoking Status: Never smoker Hx Alcohol Use: No Hx Substance Use: No Beliefs That Will Affect Care: None Preferred Language: [place] Review of Systems A 13 point review of systems was performed with pertinent positives and negatives as per the HPI. Physical Exam 2 Vital Signs (Past 24 Hours): Last Vital Signs Temp 36.9 C 04/12/18 08:04 Pulse 73 04/12/18 08:04 Resp 16 04/12/18 08:04 BP 121/76 04/12/18 08:04 Pulse Ox 96 04/12/18 08:04 Constitutional: WD/WN, vitals as above Eyes: EOM intact bilaterally no erythema Neck: normal visual inspection Respiratory: normal respiratory effort, lungs clear to auscultation Cardiovascular: Rate/Rhythm: regular rate and regular rhythm Heart Sounds: no murmur Gastrointestinal (Abdomen): Inspection/Auscultation: normal bowel sounds Percussion/Palpation: abdomen soft; abdomen nontender Musculoskeletal: Extremities: no lower leg abnormality Skin: no rashes, warm and dry Psychiatric: A+Ox3, euthymic affect _ (1) Crohn's disease Digestive disease complication type: with fistula Gastrointestinal tract location: small intestine Qualified Code(s): 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
--- NOTE | 2018-04-12 11:29 | Cardiology Progress Note ---
Date of Service April 12, 2018 Assessment & Plan (1) Atrial fibrillation with RVR: CHADS2 and [id number] scores are 0. Continue metoprolol 25 mg twice daily. Discussed importance of avoiding triggers including caffeine, stimulants, and excessive alcohol. Encourage patient to participate in a regular aerobic exercise program and maintain a healthy diet. Outpatient cardiology follow-up in 1 month. (2) Crohn's disease: Subjective Patient seen and examined at the bedside. Converted to sinus rhythm last evening. Denies chest discomfort or recurrent palpitations. Tolerating metoprolol. No chest pain or shortness of breath. Offers no complaints. is present at bedside. Review of Systems All systems reviewed & are unremarkable except as noted in HPI & below Physical Exam 2 Vital Signs (Past 24 Hours): Last Vital Signs Temp 36.9 C 04/12/18 08:04 Pulse 73 04/12/18 08:04 Resp 16 04/12/18 08:04 BP 121/76 04/12/18 08:04 Pulse Ox 96 04/12/18 08:04 Physical Exam: General: NAD, AAO x3, well nourished. HEENT: Normocephalic. Atraumatic. Conjunctiva pink, no scleral icterus. Neck: No carotid bruits, the carotid upstrokes are brisk. No JVD. No HJR Heart: Regular normal S-1 and S-2 no S-3 or S-4 gallop. No murmurs or rub appreciated. PMI is not displaced. No RV heave. Lungs: Clear bilateral without rales , rhonchi, or wheeze. Abdomen: Normal bowel sounds. Soft. Nontender. No masses or organomegaly. No abdominal bruits. Extremities: No clubbing, cyanosis, or edema. Pulses: radial=2/4, Dorsalis pedis =2/4, posterior tibial=2/4. Neuro: Cranial nerves grossly intact. No focal motor deficit. _ (1) Crohn's disease Gastrointestinal tract location: small intestine Digestive disease complication type: with fistula Qualified Code(s): 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
[2018-04-12] MEDS ORDERED: ERGOCALCIFEROL 50,000 UNITS CAP PO SCH (12:00)
[2018-04-12] MEDS ORDERED: METOPROLOL SUCC 50MG EXT REL TAB PO SCH (13:00)
--- NOTE | 2018-04-12 13:31 | Hospitalist Progress Note ---
Date of Service April 12, 2018 Assessment & Plan (1) Atrial fibrillation with RVR: Presented with atrial fibrillation with rapid ventricular response. Received IV diltiazem bolus / infusion. Converted to NSR. Cardiology consulted. [id number] score = 0. No need for anticoagulation. Potential triggers discussed. Discharged on metoprolol. (2) Crohn's disease: Continue usual regimen. (3) DVT (deep venous thrombosis): SCD's. Ambulating. (4) Discharge planning issues: Discharge to home. Family Medicine follow-up with Dr. Morales. Subjective Recheck for atrial fibrillation. Feels well. Converted to NSR last night. No palpitations, CP, SOB. Physical Exam 2 Vital Signs (Past 24 Hours): Last Vital Signs Temp 36.8 C 04/12/18 11:33 Pulse 63 04/12/18 11:33 Resp 16 04/12/18 11:33 BP 124/78 04/12/18 11:33 Pulse Ox 98 04/12/18 11:33 Constitutional: no acute distress Respiratory: no respiratory distress Auscultation: lungs clear to auscultation bilaterally Cardiovascular: Rate/Rhythm: regular rate and regular rhythm Heart Sounds: no gallop, no murmur and no cardiac rub Vessels: no JVD Extremities: no calf tenderness and no edema Gastrointestinal (Abdomen): normal bowel sounds, soft, nontender, no hepatosplenomegaly Skin: no rashes, warm and dry Psychiatric: Orientation: alert and oriented x 3 _ (1) Crohn's disease Gastrointestinal tract location: small intestine Digestive disease complication type: with fistula Qualified Code(s): 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
[2018-04-12] MEDS ORDERED: METOPROLOL TARTRATE 25 MG TAB PO SCH (21:00)
--- NOTE | 2018-04-16 08:38 | Discharge Summary ---
Date of Service Date of admission: 04/11/18 Date of discharge: 04/12/18 Admission HPI Per Admitting Provider Pt is 52 y/o M with PMH Crohn's on IVIg, Stelara, budesonide, and TPN 3x week through PICC, GERD, h/o kidney stones presented to ER with c/o palpitations woke him up out of sleep at approx 1AM today. Denies any associated CP, dizziness, syncope, diaphoresis. Palpitations continued until in ER today. Pt states yesterday was pushing wheelbarrow with firewood and had anterior mid/ left sided CP that lasted approx 10-15 seconds and resolved with rest. No recurrent CP since. Denies any recent fever/chills. Pt reports chronic rhinitis and was taking sudafed regularly until a couple of weeks ago. Was using flonase but reports no longer using. Denies alcohol use. Follows with Dr Bhavna MARTINEZ at [facility]. Reports chronic small amount of red rectal bleeding approx once a week. He reports known ulcer to rectum which believes causes the bleeding. Denies increased rectal bleeding. Hsa 4 loose BM's daily and denies any increased BMs. Denies abdominal pain, N/V. Pt reports had PICC line replaced in the last 6 months. Denies any surrounding erythema. Reports site has been flushing without difficulty. Denies fever/chills, diaphoresis, WORKMAN, dizziness, syncope, vision changes, neck pain, orthopnea, cough, sore throat, choking, paresthesias , weakness, extremity weakness, extremity edema, rashes, urinary symptoms. Denies hx CHF, diabetes, vascular disorders. hx hospitalization 12/2016 for CP. Had stress echo with no evidence ischemia. EF : 55-60%, no significant valvular issues. Admission Exam Per Admitting Provider General: no distress, WDWN Head: normocephalic, atraumatic Eyes: PERRL, EOM's intact, conjunctiva non-injected, anicteric ENT: normal inspection external ears, nose, some tenderness to palpation L maxillary sinus, mucous membranes moist Neck: supple, trachea midline, non-tender Lungs: clear, no respiratory distress, no wheezing/rhonchi/rales CV: irregularly, irregular, rate 96, no murmur, no JVD, no pretibial edema Abd: normal BS, soft, non-tender Ext: no cyanosis, no calf tenderness; LLE: PICC in place without erythema/edema Neuro: A&O x 3, no focal deficits noted, normal affect Skin: warm, dry Principal Diagnosis new onset atrial fibrillation with rapid ventricular response Discharge Data Allergies Allergy/AdvReac Type Severity Reaction Status Date / Time Sulfa (Sulfonamide Allergy Unknown UNKNOWN Verified 04/11/18 10:16 Antibiotics) infliximab AdvReac Severe " LUPUS Verified 04/11/18 10:16 SYMPTOMS" Consultations 04/11/18 10:59 ED Decision to Admit Stat 04/11/18 14:28 Consult Cardiology Routine Consult Gastroenterology Routine Hospital Course (1) Atrial fibrillation with RVR: Presented with atrial fibrillation with rapid ventricular response. K and Mg were normal. TSH minimally elevated at 4.610. Free T4 normal. Received IV diltiazem bolus / infusion. Converted to NSR. Cardiology consulted. [id number] score = 0. No need for anticoagulation. Potential triggers discussed. Discharged on metoprolol. (2) Crohn's disease: Stable. Continue usual regimen. (3) DVT (deep venous thrombosis): SCD's. Ambulating. (4) Discharge planning issues: Discharge to home. Family Medicine follow-up with Dr. Morales. Total Time Total Time Spent Total Time Spent (In Minutes): 35 Discharge Plan Discharge Items Patient Disposition: Home - Self-Care Reason For Visit: atrial fibrillation Discharge Diagnosis: atrial fibrillation Condition: Good Discharge Goals: Improve disease control Activity: Resume your previous activity Non-emergency contact: Primary Care Provider, Hospitalist and Network Design Architect Call non-emergency contact if: you have any medication questions and your symptoms worsen Follow-up/Referrals: Donovan Asher DO [Network Design Architect] - (Office will contact you with appointment.) Jp Morales [Primary Care Provider] - (04/20/2018 11:00 AM Jp Morales MD) Diet: Heart Healthy Addtl Provider Instructions: OTHER INSTRUCTIONS: Avoid stimulants like decongestants (Sudafed and related drugs), nicotine, too much caffeine, excessive alcohol. Seek medical attention if you have: * temperature above 101 * chest pain or trouble breathing * abdominal pain, nausea, vomiting * diarrhea, dark stools or bloody stools * any unanswered questions or concerns Call 911 if symptoms are severe. Call if you have any questions or problems. My cell # is [phone]. You can also reach a [facility] hospitalist on duty at [facility] 24 hours a day by calling [phone]. Prescriptions: New metoprolol tartrate 25 mg tablet 25 mg PO BID Qty: 60 RF: 5 Continue loperamide 2 mg capsule 4 mg PO TIDM RF: 0 metronidazole 250 mg tablet 250 mg PO UD RF: 0 azathioprine 50 mg tablet 150 mg PO DAILY RF: 0 cyanocobalamin (vitamin B-12) 1,000 mcg/mL solution 1,000 mcg IM WK RF: 0 omeprazole 20 mg capsule,delayed release(DR/EC) 20 mg PO BID RF: 0 ergocalciferol (vitamin D2) 50,000 unit capsule 50,000 units PO 2XWK RF: 0 budesonide 3 mg capsule,delayed,extend.release 3 mg PO DAILY RF: 0 cholestyramine (with sugar) 4 gram powder 6 g PO BID RF: 0 acetaminophen [Tylenol] 325 mg Capsule 325 mg PO Q6H PRN (Reason: Pain) RF: 0 zoledronic [id number]-tfuifuir-vzvoi [Reclast] 5 mg/100 mL Piggyback 5 mg IV YEARLY RF: 0 ustekinumab 90 mg/mL syringe 1 dose subcut UD RF: 0 Bivigam 1 dose IV Q4WK RF: 0 TPN Electrolytes 1 dose IV 3XWK RF: 0 calcium carbonate [Calcium 600] 600 mg calcium (1,500 mg) Tablet 600 mg PO DAILY RF: 0 Stand-Alone Forms: My [facility]/Other Patient Handouts: Metoprolol Tartrate Oral tablet, AFL/Afib Discharge Orders: Discharge Order (Routine); Ordered 04/12/18 Ordered By: Yassine Hawthorne Admission Data Admit Date/Time: 04/11/18 12:40 Attending Provider: Yassine Hawthorne Admit Provider: Rachael Torres Primary Care Provider: Jp Morales Other Providers: Gerardo Riojas ; Donovan Asher ; Rachael Torres Service: Telemetry Other Interventions: Discharge Summary Assessment (RN) Last Done: 04/12/18 13:57 DC Date/Time DO NOT enter until pt leaves facility: 04/12/18 14:27
== END 2018-04-12 14:27 | disposition home or self-care (01) | DRG 309 ==
LOC: ED 09:47 → 2S 12:40
DX: Z88.2 Allergy status to sulfonamides; Z87.442 Personal history of urinary calculi; Z82.49 Family history of ischemic heart disease and other diseases of the circulatory system; Z79.899 Other long term (current) drug therapy; E46 Unspecified protein-calorie malnutrition; K21.9 Gastro-esophageal reflux disease without esophagitis; I48.0 Paroxysmal atrial fibrillation; K50.013 Crohn's disease of small intestine with fistula; D80.1 Nonfamilial hypogammaglobulinemia

== ENCOUNTER 2019-03-04 05:14 | Inpatient (IN) ==
[2019-03-04] MEDS ORDERED: dilTIAZem HCl 5 MG/ML 5 ML VIAL IV STA ×2 (05:33→11:43)
[2019-03-04 05:50] LABS: Basophils # (auto) 0.02 K/uL (0-0.2); Basophils % (auto) 0.2 %; Eosinophils % (auto) 2.4 %; Hematocrit (blood only) 40.5 % (42-52); Hemoglobin 13.2 g/dL (14.0-18.0); Immature Granulocytes # (auto) 0.03 K/uL (0.00-0.02); Immature Granulocytes % (auto) 0.4 %; Lymphocytes # (auto) 1.21 K/uL (1.2-3.4); Lymphocytes % (auto) 14.5 %; Mean Corpuscular Hemoglobin 29.2 pg (25-34); Mean Corpuscular Hgb Conc 32.6 g/dL (32-36); Mean Corpuscular Volume 89.6 fL (80-100); Monocytes # (auto) 1.08 K/uL (0.11-0.59); Neutrophils # (auto) 5.78 K/uL (1.4-6.5); Neutrophils % (auto) 69.5 %; Platelet Count 311 K/uL (130-400); RDW Coefficient of Variation 14.9 % (11.5-14.5); RDW Standard Deviation 48.7 fL (36.4-46.3); Red Blood Count 4.52 M/uL (4.7-6.1); White Blood Count 8.32 K/uL (4.8-10.8)
[2019-03-04 06:08] LABS: Alanine Aminotransferase 20 U/L (12-78); Albumin Level 3.5 gm/dl (3.4-5.0); Aspartate Aminotransferase 17 U/L (15-37); BUN Creatinine Ratio 10.8 (10-20); Blood Urea Nitrogen 11 mg/dl (7-18); Carbon Dioxide 27 mmol/L (21-32); Chloride 110 mmol/L (98-107); Creatinine Clr Calc Pharmacy 97.9 ml/min; Est GFR (Non-African American) 88.9; Glucose 88 mg/dl (70-99); Sodium 140 mmol/L (136-145)
[2019-03-04 06:18] LABS: Albumin Globulin Ratio 0.8 (0.9-2); Alkaline Phosphatase 82 U/L (45-117); Bilirubin,Total 0.6 mg/dl (0.2-1); Globulin 4.6 gm/dl (2.5-4.0); Total Protein 8.1 gm/dl (6.4-8.2); Troponin I < 0.015 ng/ml (0-0.045)
--- NOTE | 2019-03-04 07:32 | Emergency Department Note ---
Entered by Allegra Peter acting as a scribe for Marisol Daily DO History of Present Illness General Chief complaint: Cardiac Assessment Stated complaint: TECH, Sayda-FIB, IRREG H. RATE, SOB Time Seen by Provider: 03/04/19 05:25 Source: patient History of Present Illness Onset (ago): hour(s) 2 Location: chest Severity: similar to prior episodes Pain Consistency: + other (persistent ) Maximum Pain Intensity: 7 Quality: + other (palpitations) Associated symptoms: + chest pain (heaviness) and + shortness of breath The patient is a 53 year old male who presents to the Emergency Room with complaints of persistent palpitations that began at approximately 0345, 2 hours prior to arrival. The patient states that during this time he has had shortness of breath and chest heaviness. He states that this is similar to a prior episode of atrial fibrillation for him approximately 1 year ago. The patient states that he has had some increased stress over the past several days. He denies missing any doses of his medications. The patient states that he takes 25mg of Metoprolol 3 times per day. Home Medications Home Medications Medication Instructions Recorded Confirmed Type Bivigam 1 dose IV Q4WK 04/11/18 03/04/19 History TPN Electrolytes 1 dose IV 3XWK 04/11/18 03/04/19 History azathioprine 150 mg PO DAILY 04/11/18 03/04/19 History budesonide 3 mg PO DAILY 04/11/18 03/04/19 History calcium carbonate [Calcium 600] 600 mg PO DAILY 04/11/18 03/04/19 History cholestyramine (with sugar) 4 g PO BID 04/11/18 03/04/19 History cyanocobalamin (vitamin B-12) 1,000 mcg IM WK 04/11/18 03/04/19 History ergocalciferol (vitamin D2) 50,000 units PO 2XWK 04/11/18 03/04/19 History loperamide 4 mg PO TIDM 04/11/18 03/04/19 History metronidazole 250 mg PO UD 04/11/18 03/04/19 History ustekinumab 1 dose SUBCUT UD 04/11/18 03/04/19 History acetaminophen [Tylenol Extra 500 mg PO Q6H PRN 03/04/19 03/04/19 History Strength] metoprolol tartrate 25 mg PO TID 03/04/19 03/04/19 History ranitidine HCl 150 mg PO HS 03/04/19 03/04/19 History ranitidine HCl 300 mg PO QAM 03/04/19 03/04/19 History sumatriptan succinate 100 mg PO DIRECTED PRN 03/04/19 03/04/19 History zoledronic bchq-sicgfbvo-hvoby 2 mg IV YEARLY 03/04/19 03/04/19 History [Reclast] Allergies Allergy/AdvReac Type Severity Reaction Status Date / Time Sulfa (Sulfonamide Allergy Unknown UNKNOWN Verified 03/04/19 06:09 Antibiotics) infliximab AdvReac Severe " LUPUS Verified 03/04/19 06:09 SYMPTOMS" Past Med/Surg History Medical History Chest pain (Resolved) Crohn's disease (Chronic) "s/p small bowel resection" GERD (gastroesophageal reflux disease) (Chronic) History of Lyme disease (Resolved) History of urinary calculi (Chronic) Long-term use of immunosuppressant medication (Chronic) Stelara, Imuran, IVIG" On 07/13/15 11:34 Sully Dumont wrote "Cimzia, Imuran, IVIG" Malnutrition (Chronic) Surgical History History of bowel resection (Chronic) "2/3rds small bowel removed 2* crohns" Status post cystoscopy (Resolved) "with ureteral stent" Family History Father Arrhythmia Pacemaker Other Pancreatic cancer Social History Preferred Language: Lithuanian Communication Ability: Effective Online User Experience Strategist Required: No Beliefs That Will Affect Care: None Current Living Situation: Spouse Feels Safe at Home: Yes Smoking Status: Never smoker Hx Alcohol Use: No Hx Substance Use: No Review of Systems See HPI for pertinent positives & negatives. and A total of 10 systems reviewed and were otherwise negative Physical Exam Vital Signs Vital Signs - 24 hr 03/04/19 05:18 03/04/19 05:47 03/04/19 06:16 Temperature 36.5 C Temperature Source Oral Pulse Rate 67 Pulse Rate [Bilateral] 131 H 107 H Pulse Rhythm [Bilateral] Irregular Irregular Pulse Strength [Bilateral] Normal Normal Respiratory Rate 16 18 18 Respiratory Effort / Characteristics Non-Labored Spontaneous Non-Labored Spontaneous Non-Labored Spontaneous Respiratory Depth Normal Normal Normal Respiratory Pattern Regular Regular Blood Pressure 100/70 Blood Pressure [Right Arm] 115/90 123/82 Blood Pressure Mean 80 Blood Pressure Mean [Right Arm] 98 95 Blood Pressure Position [Right Arm] Sitting Sitting Pulse Oximetry 100 98 97 Oxygen Delivery Method Room Air Room Air Room Air Sepsis Action Taken by Nursing No Action Required End-Tidal CO2 03/04/19 07:00 Temperature Temperature Source Pulse Rate 99 H Pulse Rate [Bilateral] Pulse Rhythm [Bilateral] Pulse Strength [Bilateral] Respiratory Rate 17 Respiratory Effort / Characteristics Respiratory Depth Respiratory Pattern Blood Pressure 107/73 Blood Pressure [Right Arm] Blood Pressure Mean 85 Blood Pressure Mean [Right Arm] Blood Pressure Position [Right Arm] Pulse Oximetry Oxygen Delivery Method Sepsis Action Taken by Nursing End-Tidal CO2 98 HEENT: Head - normocephalic and atraumatic Pupils are equal, round, and reactive to light. Extraocular eye muscles are intact, and sclera are anicteric. Nose - moist nasal mucosa without discharge. Mouth - moist buccal mucosa. Oropharynx is nonerythematous and there is no tonsillar exudate or edema noted. Neck: Supple; no JVD, nuchal rigidity, cervical lymphadenopathy, or auscultated bruits. Heart: Tachycardic rate and irregularly irregular rhythm. There is a normal S1 and S2 with no murmurs, clicks, or gallops appreciated. Lungs: Clear to auscultation bilaterally with no wheezes, rales, or rhonchi. Abdomen: Soft, completely nontender, nondistended, with good bowel sounds. There are no palpable pulsatile masses or hepatosplenomegaly. There is no guarding, rigidity, or rebound noted. Extremities: No evidence of cyanosis, clubbing, or edema. There are easily palpable peripheral pulses. Skin: warm and dry with good turgor and no rashes. Course Course 05: Past medical records reviewed. The patient was evaluated in room B10. A complete history and physical exam was performed. 0534: Ordered Cardizem 10mg IV. 0604: Upon reevaluation, the patient's rate is controlled in the 80s and 90s but the patient is still in atrial fibrillation. The chest pressure has subsided. I will talk to Dr. Melara Hospitalkahlil about the patient. 0629: I discussed the case with Dr. Melara Hospitalist who accepts the patient for further evaluation. He will pass this along to the daylight team 0631: I updated the patient on all results. He is in agreement with the treatment plan. Administered Medications Discontinued Medications Diltiazem HCl (Cardizem) 10 mg IV NOW STA Stop: 03/04/19 05:34 Last Admin: 03/04/19 05:45 Dose: 10 mg Documented by: [id number] Cosigned by: [id number] Critical Care Time Critical Care Time: Yes Total Critical Care Time: 30 I have personally spent 30 minutes of critical care time in the direct management of this patient. This includes bedside care, interpretation of diagnostic studies, and testing, discussion with consultants, patient, and family members, and other required patient management activities. This 30 minutes is in excess of all separately billable procedures. Medical Decision Making Differential Diagnosis Differential diagnoses include anxiety, SVT afib with RVR, electrolyte abnormality, and others were considered. Medical Records Attestation: I reviewed the patient's medical records. Home Medications Current Medication List: was personally reviewed by me Laboratory Data Attestation: I reviewed the patient's lab results. Result diagrams: 03/04/19 05:34 03/04/19 05:34 Lab Results 03/04/19 03/04/19 Range/Units 05:34 05:34 WBC 8.32 (4.8-10.8) K/uL RBC 4.52 L (4.7-6.1) M/uL Hgb 13.2 L (14.0-18.0) g/dL Hct 40.5 L (42-52) % MCV 89.6 (80-100) fL MCH 29.2 (25-34) pg MCHC 32.6 (32-36) g/dL RDW Std Deviation 48.7 H (36.4-46.3) fL RDW Coeff of Joi 14.9 H (11.5-14.5) % Plt Count 311 (130-400) K/uL MPV 9.0 (7.4-10.4) fL Immature Gran % (Auto) 0.4 % Neut % (Auto) 69.5 % Lymph % (Auto) 14.5 % Taliaferro % (Auto) 13.0 % Eos % (Auto) 2.4 % Baso % (Auto) 0.2 % Immature Gran # (Auto) 0.03 H (0.00-0.02) K/uL Neut # (Auto) 5.78 (1.4-6.5) K/uL Lymph # (Auto) 1.21 (1.2-3.4) K/uL Taliaferro # (Auto) 1.08 H (0.11-0.59) K/uL Eos # (Auto) 0.20 (0-0.5) K/uL Baso # (Auto) 0.02 (0-0.2) K/uL Sodium 140 (136-145) mmol/L Potassium 4.0 (3.5-5.1) mmol/L Chloride 110 H (98-107) mmol/L Carbon Dioxide 27 (21-32) mmol/L Anion Gap 3.0 (3-11) BUN 11 (7-18) mg/dl Creatinine 0.98 (0.6-1.4) mg/dl Est Cr Clr Drug Dosing 97.9 ml/min Est GFR ( Amer) 103.0 Est GFR (Non-Af Amer) 88.9 BUN/Creatinine Ratio 10.8 (10-20) Glucose 88 (70-99) mg/dl Calcium 9.0 (8.5-10.1) mg/dl Magnesium 2.0 (1.8-2.4) mg/dl Total Bilirubin 0.6 (0.2-1) mg/dl AST 17 (15-37) U/L ALT 20 (12-78) U/L Alkaline Phosphatase 82 (45-117) U/L Troponin I < 0.015 (0-0.045) ng/ml Total Protein 8.1 (6.4-8.2) gm/dl Albumin 3.5 (3.4-5.0) gm/dl Globulin 4.6 H (2.5-4.0) gm/dl Albumin/Globulin Ratio 0.8 L (0.9-2) TSH 5.130 H (0.300-4.500) uIu/ml Free T4 1.10 (0.8-1.6) ng/dl Imaging Data Attestation: I personally reviewed and interpreted this imaging study as follows: My Impression: CHEST X-RAY 1 VIEW: No significant cardiomegaly. No pulmonary findings. ECG Data Attestation: I personally reviewed and interpreted this ECG as follows: Indication: + palpitations Rate (beats per minute): 133 Rhythm: + atrial fibrillation (with RVR) ECG ST segments: + ST depression (inferior ) ECG Findings: no PACs and no PVCs Additional Comments: REPEAT ECG: Afib with a rate of 97. No ST elevation or ST depression. No PACs and no PVCs. Blood Pressure Blood Pressure Findings: Normal blood pressure MDM Narrative The patient is a 53 year old male who presents to the Emergency Room with complaints of persistent palpitations that began at approximately 0345, 2 hours prior to arrival. The EKG showed A. fib with RVR. Initially, the patient was hypotensive but blood pressure rebounded into the 100s. He was given a dose of IV Cardizem which controlled the rate and the chest pressure/heaviness went away. The patient takes metoprolol 3 times a day to control the rate but does not take anticoagulation. He does have a history of Crohn's disease. The patient's first troponin was negative. Vitals are stable. I discussed the case with the [facility] hospitalist and they will evaluate for further inpatient care. Impression & Plan Atrial fibrillation with RVR, Chest heaviness Discharge Plan Visit Data Chief Complaint: Cardiac Assessment Stated Complaint: TECH, A-FIB, IRREG H. RATE, SOB ED Provider: Marisol Daily Discharge Problem: Atrial fibrillation with RVR, Chest heaviness Patient Disposition: Being Evaluated by Hospitalist Forms Stand Alone Forms: My [facility] Prescriptions Prescriptions: No Action loperamide 2 mg capsule 4 mg PO TIDM RF: 0 metronidazole 250 mg tablet 250 mg PO UD RF: 0 azathioprine 50 mg tablet 150 mg PO DAILY RF: 0 cyanocobalamin (vitamin B-12) 1,000 mcg/mL solution 1,000 mcg IM WK RF: 0 ergocalciferol (vitamin D2) 50,000 unit capsule 50,000 units PO 2XWK RF: 0 budesonide 3 mg capsule,delayed,extend.release 3 mg PO DAILY RF: 0 cholestyramine (with sugar) 4 gram powder 4 g PO BID RF: 0 ustekinumab 90 mg/mL syringe 1 dose subcut UD RF: 0 Bivigam 1 dose IV Q4WK RF: 0 TPN Electrolytes 1 dose IV 3XWK RF: 0 calcium carbonate [Calcium 600] 600 mg calcium (1,500 mg) Tablet 600 mg PO DAILY RF: 0 metoprolol tartrate 25 mg tablet 25 mg PO TID RF: 0 sumatriptan succinate 100 mg Tablet 100 mg PO DIRECTED PRN (Reason: Migraine Headache) RF: 0 acetaminophen [Tylenol Extra Strength] 500 mg Tablet 500 mg PO Q6H PRN (Reason: pain/fever) RF: 0 zoledronic fcci-ggvibkny-swwga [Reclast] 5 mg/100 mL Piggyback 2 mg IV YEARLY RF: 0 ranitidine HCl 300 mg Tablet 300 mg PO QAM RF: 0 ranitidine HCl 150 mg Tablet 150 mg PO HS RF: 0 Referrals Referrals: Jp Morales MD [Primary Care Provider] - The scribe's documentation has been prepared under my direction and personally reviewed by me in its entirety. I confirm that the note above accurately reflects all work, treatment, procedures, and medical decision making performed by me.
--- NOTE | 2019-03-04 07:41 | XRay Report ---
XR chest 1V portable CLINICAL HISTORY: 53 years-old Male presenting with a-fIB. TECHNIQUE: Portable upright AP view of the chest was obtained. COMPARISON: 11/18/2018. FINDINGS: Left upper extremity PICC terminates at the superior cavoatrial junction as on prior exam. Cardiomedi astinal silhouette normal. Lungs are mildly hyperinflated. No focal opacity. No pleural effusion or p neumothorax. Osseous structures normal. Upper abdomen normal. IMPRESSION: 1. Appropriately positioned PICC. 2. Hyperinflation suspected versus an exuberant inspiratory effort. 3. No other evidence of acute cardiopulmonary disease. ACT 112: Negative or not required by law. Electronically signed by: Fritz Bocanegra M.D. 03/04/2019 7:40 AM
--- NOTE | 2019-03-04 08:11 | History & Physical Report ---
Date of Service March 04, 2019 Assessment & Plan (1) Atrial fibrillation with RVR: Atrial Fibrillation RVR: H/O paroxysmal SVT, A. fib CHDS2 score:0 CXR: No acute cardiopulmonary disease TSH:5.1, Free T4:1.10 Update ECHO Monitor electrolytes Increase metoprolol to 50 mg TID IV Lopressor PRN Cardiology consulted Trend Cardiac enzymes Crohn's disease Follows with gastroenterology in [place] On IVIG's, Stelara, Prolia (Due in Mar 2019) Continue ciprofloxacin, Flagyl--currently on it for 3 weeks due to acute flare Continue azathioprine, budesonide, cholestyramine, loperamide On TPN 3 times/week and NSS on off TPN days Monitor QTC while on Cipro GERD Continue PPI H/O Migraine, Chronic Sinusits Stable DVT Px: Heparin SQ Code Status Full Code Disposition Expect to discharge home when stable History of Present Illness Chief Complaint: Palpitations Primary Care Provider: Jp Morales MD Patient is a 53-year-old male with history of Crohn's disease, GERD, migraine, paroxysmal atrial fibrillation, paroxysmal SVT chronic sinusitis and other problems presents with history of persistent palpitations which started at about 3:45 AM this morning. Patient states to have left sided chest discomfort, nonradiating, associated with transient shortness of breath earlier this morning which currently resolved. Continues to have palpitations currently. He admits to taking his medications regularly. He states that he has been using ciprofloxacin, Flagyl since last 3 weeks for Crohn's flare. He also reports undergoing through a lot of stress lately at work. Denies any history of nausea, vomiting, abdominal pain, blood in stools. He has chronic diarrhea due to Crohn's disease which has been unchanged. He denies any history of dizziness, pedal edema, diaphoresis, cough, fever, chills, headache, dysuria, hematuria, recent change in medications. Allergies Allergy/AdvReac Type Severity Reaction Status Date / Time Sulfa (Sulfonamide Allergy Unknown UNKNOWN Verified 03/04/19 06:09 Antibiotics) infliximab AdvReac Severe " LUPUS Verified 03/04/19 06:09 SYMPTOMS" Home Medications Home Medications Medication Instructions Recorded Confirmed Type Bivigam 1 dose IV Q4WK 04/11/18 03/04/19 History TPN Electrolytes 1 dose IV 3XWK 04/11/18 03/04/19 History azathioprine 150 mg PO DAILY 04/11/18 03/04/19 History budesonide 3 mg PO DAILY 04/11/18 03/04/19 History calcium carbonate [Calcium 600] 600 mg PO DAILY 04/11/18 03/04/19 History cholestyramine (with sugar) 4 g PO BID 04/11/18 03/04/19 History cyanocobalamin (vitamin B-12) 1,000 mcg IM WK 04/11/18 03/04/19 History ergocalciferol (vitamin D2) 50,000 units PO 2XWK 04/11/18 03/04/19 History loperamide 4 mg PO TIDM 04/11/18 03/04/19 History metronidazole 250 mg PO TID 04/11/18 03/04/19 History ustekinumab 1 dose SUBCUT UD 04/11/18 03/04/19 History acetaminophen [Tylenol Extra 500 mg PO Q6H PRN 03/04/19 03/04/19 History Strength] ciprofloxacin HCl [Cipro] 500 mg PO BID 03/04/19 03/04/19 History denosumab [Prolia] 60 mg SUBCUT UD 03/04/19 03/04/19 History metoprolol tartrate 25 mg PO TID 03/04/19 03/04/19 History omeprazole 20 mg PO BID 03/04/19 03/04/19 History sumatriptan succinate 100 mg PO DIRECTED PRN 03/04/19 03/04/19 History zoledronic yaji-nqpbglfu-stxyq 2 mg IV YEARLY 03/04/19 03/04/19 History [Reclast] Past Med/Surg History Medical History Chest pain (Resolved) Crohn's disease (Chronic) "s/p small bowel resection" GERD (gastroesophageal reflux disease) (Chronic) History of Lyme disease (Resolved) History of urinary calculi (Chronic) Long-term use of immunosuppressant medication (Chronic) Stelara, Imuran, IVIG" On 07/13/15 11:34 Sully Dumont wrote "Cimzia, Imuran, IVIG" Malnutrition (Chronic) Surgical History History of bowel resection (Chronic) "2/3rds small bowel removed 2* crohns" Status post cystoscopy (Resolved) "with ureteral stent" Family History Father Arrhythmia Pacemaker Other Pancreatic cancer Social History Preferred Language: Ugandan Communication Ability: Effective 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 Beliefs That Will Affect Care: None Current Living Situation: Spouse Feels Safe at Home: Yes Smoking Status: Never smoker Hx Alcohol Use: No Hx Substance Use: No Review of Systems Review of Systems: All systems reviewed & are unremarkable except as noted in HPI & below Physical Exam Physical Exam: Physical Exam: Vitals signs as noted above General Appearance:Moderately built and nourished, no apparent distress Head: normocephalic, Atraumatic Eyes: normal inspection, EOMI Neck: supple, Trachea midline Respiratory/Chest: Normal breath sounds, CTA, No accessory muscle use Cardiovascular: Irregularly irregular, tachycardia, No murmur Abdomen/GI:Soft, Non tender, Bowel sounds present Extremities/Musculoskelatal:normal inspection, no edema Neurologic/Psych:AAOX3, grossly no focal neurological deficits Skin: normal color, warm Results & Data Vital Signs (Past 12 Hours) Vital Signs Temp Pulse Pulse Resp BP BP Pulse Ox 03/04/19 07:00 99 H 17 107/73 03/04/19 06:16 107 H 18 123/82 97 03/04/19 05:47 131 H 18 115/90 98 03/04/19 05:18 36.5 C 67 16 100/70 100 Laboratory Results Short CBC 03/04/19 Range/Units 05:34 WBC 8.32 (4.8-10.8) K/uL Hgb 13.2 L (14.0-18.0) g/dL Hct 40.5 L (42-52) % Plt Count 311 (130-400) K/uL BMP 03/04/19 05:34 Sodium 140 Potassium 4.0 Chloride 110 H Carbon Dioxide 27 BUN 11 Creatinine 0.98 Glucose 88 Calcium 9.0 Cardiac Enzymes 03/04/19 Range/Units 05:34 Troponin I < 0.015 (0-0.045) ng/ml Liver Function 12/21/19 Range/Units 05:34 Total Bilirubin 0.6 (0.2-1) mg/dl AST 17 (15-37) U/L ALT 20 (12-78) U/L Alkaline Phosphatase 82 (45-117) U/L Albumin 3.5 (3.4-5.0) gm/dl Diagnostic Findings CXR:Appropriately positioned PICC. Hyperinflation suspected versus an exuberant inspiratory effort. No other evidence of acute cardiopulmonary disease. ECG Additional Comments: EKG: A. fib RVR, nonspecific ST abnormality, QTC 458
[2019-03-04] MEDS ORDERED: METOPROLOL TARTRATE 1 MG/ML VIAL IV PRN (09:31)
[2019-03-04] MEDS: METOPROLOL TARTRATE 25 MG TAB PO SCH ×3 (09:34→20:35)
[2019-03-04] MEDS: SODIUM CHLORIDE 0.9% 1000ML 1,000 ML IV SCH ×2 (09:35→20:26)
[2019-03-04] MEDS ORDERED: azaTHIOprine 50 MG TAB PO SCH (10:44)
[2019-03-04] MEDS ORDERED: ACETAMINOPHEN 325 MG TAB PO PRN (10:44)
[2019-03-04] MEDS ORDERED: TPN ELECTROLYTES IV SCH (10:44)
[2019-03-04] MEDS ORDERED: metroNIDAZOLE 250 MG TAB PO SCH (10:44)
[2019-03-04] MEDS ORDERED: PANTOprazole 40 MG TAB PO SCH (11:00)
[2019-03-04] MEDS ORDERED: TPN/PPN CONSULT PHARMACY PRN (11:18)
[2019-03-04] MEDS: CIPROFLOXACIN 500 MG TAB PO SCH ×2 (11:46→20:31)
[2019-03-04] MEDS ORDERED: Heparin IV Standard *NO* Bolus IV STA (11:57)
[2019-03-04] MEDS ORDERED: LOPERAMIDE HCL 2 MG CAP PO SCH (12:00)
[2019-03-04] MEDS: BUDESONIDE EC 3 MG CAP PO SCH ×2 (12:31→12:32)
[2019-03-04] MEDS: azaTHIOprine 50 MG TAB PO SCH (12:31)
[2019-03-04] MEDS: metroNIDAZOLE 250 MG TAB PO SCH ×3 (12:33→20:35)
[2019-03-04] MEDS: LOPERAMIDE HCL 2 MG CAP PO SCH ×2 (12:34→15:36)
[2019-03-04] MEDS: dilTIAZem HCL 125 MG in DEXTROSE 5% 100 ML IV SCH (12:53)
[2019-03-04] MEDS: HEPARIN SODIUM/DEXTROSE 25,000 UNITS/500 ML BAG IV SCH (13:14)
[2019-03-04 13:17] LABS: Partial Thromboplastin Time 27.2 Seconds (21.0-31.0)
--- NOTE | 2019-03-04 14:26 | Cardiology Consultation ---
Date of Consultation March 04, 2019 Assessment & Plan (1) Atrial fibrillation with RVR: Symptomatic with rapid ventricular response The pathophysiology and treatment options were once again reviewed with the patient and his . Given the fact that we cannot confirm the duration of his atrial fibrillation episode we will have to proceed with concern of a possible left atrial thrombus. Given that fact we will attempt rate control at this time with an IV Cardizem drip and continued oral metoprolol. He does have a history of Crohn's disease but no active bleeding as of late so heparin drip without bolus will be initiated at this time. Going forward he does have a chads-vasc score of 0 however we will anticoagulate while in atrial fibrillation at this time. Consideration may be given to possible JADA guided cardioversion should he fail to spontaneously convert to normal sinus rhythm on his own. The above plan was discussed with the patient his in great length and there in agreement. (2) Chest heaviness: Secondary to atrial fibrillation with rapid ventricular response Similar presentation in March 2018 with subsequent normal stress echocardiogram. Do not see any objective finding of ischemia at this point. (3) Crohn's disease: On chronic immunosuppressive therapy however stable clinically per patient History of Present Illness Reason for Consultation: Atrial fibrillation with rapid ventricular response Requesting Physician: Dr. Arellano Attending Physician: Kash Arellano MD History of Present Illness It was my pleasure to see Mr. Nielsen in consultation today March 04, 2019. He is a very pleasant 53-year-old gentleman who normally follows with Dr. Hampton of her cardiology practice. He presented to [facility] early in the a.m. of 03/04/2019 with complaints of palpitations. I received a page as the on-call mail service coordinator at approximately 4 AM from the patient's stating that he was having symptoms of palpitations similar to his episode of atrial fibrillation in the past. At that point I directed them to the nearest emergency department. The patient states that he is been in his normal state of health lately and act ually feeling well. He went to bed last night without complaint but then at approximately 3:45 this morning he got up to micturate and on his way back to the bedroom he developed palpitations. He described as a pounding/racing sensation in his chest along with a significant pressure sensation. He states that this is exactly similar to his episode of atrial fibrillation that occurred approximately 1 year ago. Upon arrival emergency department he was confirmed to be in atrial fibrillation with rapid ventricular response and given a dose of IV Cardizem with transient improvement of his heart rate and slight improvement of his symptoms. Allergies Allergy/AdvReac Type Severity Reaction Status Date / Time Sulfa (Sulfonamide Allergy Unknown UNKNOWN Verified 03/04/19 06:09 Antibiotics) infliximab AdvReac Severe " LUPUS Verified 03/04/19 06:09 SYMPTOMS" Home Medications Home Medications Medication Instructions Recorded Confirmed Type Bivigam 1 dose IV Q4WK 04/11/18 03/04/19 History TPN Electrolytes 1 dose IV 3XWK 04/11/18 03/04/19 History azathioprine 150 mg PO DAILY 04/11/18 03/04/19 History budesonide 3 mg PO DAILY 04/11/18 03/04/19 History calcium carbonate [Calcium 600] 600 mg PO DAILY 04/11/18 03/04/19 History cholestyramine (with sugar) 4 g PO BID 04/11/18 03/04/19 History cyanocobalamin (vitamin B-12) 1,000 mcg IM WK 04/11/18 03/04/19 History ergocalciferol (vitamin D2) 50,000 units PO 2XWK 04/11/18 03/04/19 History loperamide 4 mg PO TIDM 04/11/18 03/04/19 History metronidazole 250 mg PO TID 04/11/18 03/04/19 History ustekinumab 1 dose SUBCUT UD 04/11/18 03/04/19 History acetaminophen [Tylenol Extra 500 mg PO Q6H PRN 03/04/19 03/04/19 History Strength] ciprofloxacin HCl [Cipro] 500 mg PO BID 03/04/19 03/04/19 History denosumab [Prolia] 60 mg SUBCUT UD 03/04/19 03/04/19 History metoprolol tartrate 25 mg PO TID 03/04/19 03/04/19 History omeprazole 20 mg PO BID 03/04/19 03/04/19 History sumatriptan succinate 100 mg PO DIRECTED PRN 03/04/19 03/04/19 History zoledronic xndm-zczokqqf-oviok 2 mg IV YEARLY 03/04/19 03/04/19 History [Reclast] Patient History Medical History Chest pain (Resolved) Crohn's disease (Chronic) "s/p small bowel resection" GERD (gastroesophageal reflux disease) (Chronic) History of Lyme disease (Resolved) History of urinary calculi (Chronic) Long-term use of immunosuppressant medication (Chronic) Stelara, Imuran, IVIG" On 07/13/15 11:34 Sully Dumont wrote "Cimzia, Imuran, IVIG" Malnutrition (Chronic) Surgical History History of bowel resection (Chronic) "2/3rds small bowel removed 2* crohns" Status post cystoscopy (Resolved) "with ureteral stent" Family History Father Arrhythmia Pacemaker Other Pancreatic cancer Social History Preferred Language: Barbadian Communication Ability: Effective Blower Feeder Dyed Raw Stock Required: No Beliefs That Will Affect Care: None Current Living Situation: Spouse Other Information That Helps Us Care for You: No Feels Safe at Home: Yes Safety Concerns: Feels Safe At This Time Smoking Status: Never smoker Do You Dip or Chew Tobacco: No ; Second Hand Exposure: No ; Tobacco Cessation Education Requested by Patient: No Hx Alcohol Use: No Hx Substance Use: No Review of Systems Review of Systems: All systems reviewed & are unremarkable except as noted in HPI & below Physical Exam Physical Exam: General: Awake, alert and oriented x 3. No acute distress. HEENT: Normocephalic, atraumatic. Pupils equal, round and reactive to light and accommodation. Extraocular muscles are intact. Anicteric sclera. Moist mucous membranes. Neck: No JVD. No bruit. Cardiovascular: irregularly irregular, unable to appreciate murmur, rub or gallop. Pulmonary: Clear to auscultation bilaterally. No rales, rhonchi, or wheezing. Abdomen: Bowel sounds x 4, soft. No rebound, guarding or tenderness. No organomegaly. Extremities: No clubbing, cyanosis or edema. +2 pedal pulses bilaterally. Skin: Warm and dry. Results & Data Vital Signs (Past 12 Hours) Vital Signs Temp Pulse Pulse Resp BP BP Pulse Ox 03/04/19 11:00 36.7 C 127 H 68 18 125/77 03/04/19 10:46 36.7 C 68 18 125/77 98 03/04/19 10:44 36.7 C 68 18 125/77 98 03/04/19 09:30 114 H 18 116/71 97 03/04/19 09:00 120 H 18 107/75 03/04/19 08:30 98 H 20 124/74 97 03/04/19 08:00 113 H 19 94/59 L 03/04/19 07:30 114 H 25 H 115/79 03/04/19 07:00 99 H 17 107/73 03/04/19 06:16 107 H 18 123/82 97 03/04/19 05:47 131 H 18 115/90 98 03/04/19 05:18 36.5 C 67 16 100/70 100 Pulse Ox 03/04/19 11:00 98 03/04/19 10:46 03/04/19 10:44 98 03/04/19 09:30 03/04/19 09:00 03/04/19 08:30 03/04/19 08:00 03/04/19 07:30 03/04/19 07:00 03/04/19 06:16 03/04/19 05:47 03/04/19 05:18 Laboratory Results Laboratory Results - last 24 hr 03/04/19 03/04/19 03/04/19 05:34 05:34 05:34 WBC 8.32 RBC 4.52 L Hgb 13.2 L Hct 40.5 L MCV 89.6 MCH 29.2 MCHC 32.6 RDW Std Deviation 48.7 H RDW Coeff of Joi 14.9 H Plt Count 311 MPV 9.0 Immature Gran % (Auto) 0.4 Neut % (Auto) 69.5 Lymph % (Auto) 14.5 [place] % (Auto) 13.0 Eos % (Auto) 2.4 Baso % (Auto) 0.2 Immature Gran # (Auto) 0.03 H Neut # (Auto) 5.78 Lymph # (Auto) 1.21 [place] # (Auto) 1.08 H Eos # (Auto) 0.20 Baso # (Auto) 0.02 APTT 27.2 PTT Ratio 1.0 Sodium 140 Potassium 4.0 Chloride 110 H Carbon Dioxide 27 Anion Gap 3.0 BUN 11 Creatinine 0.98 Est Cr Clr Drug Dosing 97.9 Est GFR ( Amer) 103.0 Est GFR (Non-Af Amer) 88.9 BUN/Creatinine Ratio 10.8 Glucose 88 Calcium 9.0 Magnesium 2.0 Total Bilirubin 0.6 AST 17 ALT 20 Alkaline Phosphatase 82 Troponin I < 0.015 Total Protein 8.1 Albumin 3.5 Globulin 4.6 H Albumin/Globulin Ratio 0.8 L TSH 5.130 H Free T4 1.10 03/04/19 13:37 WBC RBC Hgb Hct MCV MCH MCHC RDW Std Deviation RDW Coeff of Joi Plt Count MPV Immature Gran % (Auto) Neut % (Auto) Lymph % (Auto) [place] % (Auto) Eos % (Auto) Baso % (Auto) Immature Gran # (Auto) Neut # (Auto) Lymph # (Auto) [place] # (Auto) Eos # (Auto) Baso # (Auto) APTT PTT Ratio Sodium Potassium Chloride Carbon Dioxide Anion Gap BUN Creatinine Est Cr Clr Drug Dosing Est GFR ( Amer) Est GFR (Non-Af Amer) BUN/Creatinine Ratio Glucose Calcium Magnesium Total Bilirubin AST ALT Alkaline Phosphatase Troponin I < 0.015 Total Protein Albumin Globulin Albumin/Globulin Ratio TSH Free T4 Medications Administered Current Inpatient Medications Acetaminophen (Tylenol) 650 mg PO Q4H PRN PRN Reason: Pain or Fever Stop: 04/03/19 10:43 Azathioprine (Imuran) 150 mg PO QDL [facility] Stop: 04/03/19 11:29 Last Admin: 03/04/19 12:31 Dose: 150 mg Documented by: Budesonide (Entocort Ec) 3 mg PO QDL [facility] Stop: 04/03/19 11:29 Last Admin: 03/04/19 12:32 Dose: 3 mg Documented by: Cholestyramine Resin (Questran) 4 gm PO BID@0600,1800 [facility] Stop: 04/03/19 17:59 Ciprofloxacin (Cipro) 500 mg PO BID [facility] Stop: 04/03/19 10:43 Last Admin: 03/04/19 11:46 Dose: 500 mg Documented by: Sodium Chloride (Nss 1000ml) 1,000 mls @ 100 mls/hr IV .Q10H [facility] Stop: 03/05/19 05:30 Last Admin: 03/04/19 09:35 Dose: 100 mls/hr Documented by: Diltiazem HCl 125 mg/ Dextrose 125 mls @ 5 mls/hr IV .Q24H [facility]; Protocol Stop: 04/03/19 11:44 Last Admin: 03/04/19 12:53 Dose: 5 mg/hr, 5 mls/hr Documented by: Heparin Sodium/Dextrose (Heparin Sodium/Dextrose) 25,000 units in 500 mls @ 29 mls/hr IV .[id number] [facility]; Protocol Stop: 04/03/19 12:14 Last Admin: 03/04/19 13:14 Dose: 1,450 units/hr, 29 mls/hr Documented by: Loperamide HCl (Imodium) 4 mg PO TID@0600,1200,1700 [facility] Stop: 04/03/19 11:59 Last Admin: 03/04/19 12:34 Dose: Not Given Documented by: Metoprolol Tartrate (Lopressor) 50 mg PO TID [facility] Stop: 04/03/19 09:30 Last Admin: 03/04/19 09:34 Dose: 50 mg Documented by: Metoprolol Tartrate (Lopressor) 5 mg IV Q6 PRN PRN Reason: Tachycardia Stop: 04/03/19 09:30 Metronidazole (Flagyl) 250 mg PO TID@0800,1430,2200 [facility] Stop: 04/03/19 11:29 Last Admin: 03/04/19 12:33 Dose: 250 mg Documented by: Miscellaneous Information (Pharmacy Tpn/Ppn Consult Active) 1 ea N/A UD PRN PRN Reason: Consult Stop: 04/03/19 11:17 Pantoprazole Sodium (Protonix) 40 mg PO BID@0600,1800 [facility] Stop: 04/03/19 17:59 (1) Crohn's disease Gastrointestinal tract location: small intestine Digestive disease complication type: with fistula Qualified Code(s): 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
[2019-03-04] MEDS: PANTOprazole 40 MG TAB PO SCH (15:37)
[2019-03-04] MEDS: CHOLESTYRAMINE LIGHT 4 GM PKT PO SCH (15:37)
[2019-03-04] MEDS ORDERED: HEPARIN SOD 5,000 UNIT/0.5 ML VIAL SQ SCH (21:00)
[2019-03-04 21:02] LABS: Partial Thromboplastin Ratio 1.8
[2019-03-05] MEDS: HEPARIN SODIUM/DEXTROSE 25,000 UNITS/500 ML BAG IV SCH ×2 (04:53→21:12)
[2019-03-05 05:48] LABS: Hematocrit (blood only) 39.8 % (42-52); Hemoglobin 12.8 g/dL (14.0-18.0); Mean Corpuscular Hemoglobin 28.8 pg (25-34); Mean Corpuscular Hgb Conc 32.2 g/dL (32-36); Mean Corpuscular Volume 89.4 fL (80-100); Mean Platelet Volume 9.1 fL (7.4-10.4); Platelet Count 277 K/uL (130-400); RDW Coefficient of Variation 14.8 % (11.5-14.5); RDW Standard Deviation 48.4 fL (36.4-46.3); Red Blood Count 4.45 M/uL (4.7-6.1); White Blood Count 10.49 K/uL (4.8-10.8)
[2019-03-05] MEDS: CHOLESTYRAMINE LIGHT 4 GM PKT PO SCH ×2 (06:16→16:42)
[2019-03-05 06:21] LABS: Calcium 8.8 mg/dl (8.5-10.1); Creatinine Clr Calc Pharmacy 106.6 ml/min; Est GFR (African American) 114.2; Est GFR (Non-African American) 98.5; Magnesium 1.7 mg/dl (1.8-2.4)
[2019-03-05 06:28] LABS: Partial Thromboplastin Time 55.3 Seconds (21.0-31.0)
[2019-03-05] MEDS: PANTOprazole 40 MG TAB PO SCH ×2 (07:50→17:18)
[2019-03-05] MEDS: LOPERAMIDE HCL 2 MG CAP PO SCH ×3 (07:50→16:41)
[2019-03-05] MEDS ORDERED: MAGNESIUM SULFATE / D5W 1 GM/100 ML BAG IV ONE (08:45)
[2019-03-05] MEDS: METOPROLOL TARTRATE 25 MG TAB PO SCH ×3 (09:14→21:12)
[2019-03-05] MEDS: CIPROFLOXACIN 500 MG TAB PO SCH ×2 (09:14→21:12)
[2019-03-05] MEDS: metroNIDAZOLE 250 MG TAB PO SCH ×3 (09:15→21:12)
[2019-03-05] MEDS: dilTIAZem HCL 125 MG in DEXTROSE 5% 100 ML IV SCH (09:24)
[2019-03-05] MEDS ORDERED: ALUMINUM/MAGNESIUM/SIMETH (MAALOX MAX) 30 ML UDC PO PRN (09:52)
[2019-03-05] MEDS: BUDESONIDE EC 3 MG CAP PO SCH (11:28)
[2019-03-05] MEDS: azaTHIOprine 50 MG TAB PO SCH (11:29)
[2019-03-05] MEDS ORDERED: CENTRAL PN IV SCH (12:00)
--- NOTE | 2019-03-05 13:08 | Hospitalist Progress Note ---
Date of Service March 05, 2019 Assessment & Plan (1) Atrial fibrillation with RVR: Atrial Fibrillation RVR: H/O paroxysmal SVT, A. fib CHDS2 score:0 CXR: No acute cardiopulmonary disease TSH:5.1, Free T4:1.10 ECHO: Mild LVH, EF 55 to 60%, no wall motion abnormalities, mild AR, mild MR Troponin x2: Negative Monitor electrolytes and replace as needed On Cardizem and heparin drip Continue metoprolol to 50 mg TID Appreciate cardiology input Plan for JADA cardioversion tomorrow Hypomagnesemia Replace electrolytes as needed Crohn's disease Follows with gastroenterology in [place] On IVIG's, Stelara, Prolia (Due in Mar 2019) Continue ciprofloxacin, Flagyl--currently on it for 3 weeks due to acute flare Continue azathioprine, budesonide, cholestyramine, loperamide On TPN 3 times/week and NSS on off TPN days Monitor QTC while on Cipro GERD Continue PPI H/O Migraine, Chronic Sinusits Stable DVT Px: On heparin drip Code Status Full Code Disposition Expect to discharge home when stable Subjective Patient is seen and examined at bedside Palpitations improved On Cardizem and heparin drip Heart rate is controlled Denies any bleeding issues Also denies any chest pain, shortness of breath, dizziness, nausea, abdominal pain Chronic diarrhea--unchanged Plan for JADA cardioversion tomorrow Review of Systems Review of Systems: All systems reviewed & are unremarkable except as noted in HPI & below Physical Exam Physical Exam: Physical Exam: Vitals signs as noted above General Appearance:Moderately built and nourished, no apparent distress Head: normocephalic, Atraumatic Eyes: normal inspection, EOMI Neck: supple, Trachea midline Respiratory/Chest: Normal breath sounds, CTA Cardiovascular: Irregularly irregular, No murmur Abdomen/GI:Soft, Non tender, Bowel sounds present Extremities/Musculoskelatal:normal inspection, no edema Neurologic/Psych:AAOX3, grossly no focal neurological deficits Skin: normal color, warm Results & Data Vital Signs (Past 12 Hours) Vital Signs Temp Pulse Resp BP Pulse Ox 03/05/19 11:43 36.5 C 78 18 106/67 98 03/05/19 07:54 36.5 C 62 18 114/71 95 03/05/19 04:12 36.5 C 75 16 114/69 97 Laboratory Results Short CBC 03/05/19 Range/Units 05:35 WBC 10.49 (4.8-10.8) K/uL Hgb 12.8 L (14.0-18.0) g/dL Hct 39.8 L (42-52) % Plt Count 277 (130-400) K/uL BMP 03/05/19 05:35 Sodium 140 Potassium 4.0 Chloride 112 H Carbon Dioxide 27 BUN 9 Creatinine 0.90 Glucose 99 Calcium 8.8 Cardiac Enzymes 03/04/19 Range/Units 13:37 Troponin I < 0.015 (0-0.045) ng/ml
--- NOTE | 2019-03-05 14:28 | Cardiology Progress Note ---
Date of Service March 05, 2019 Assessment & Plan (1) Atrial fibrillation with RVR: Unfortunately has remained in atrial fibrillation Rates significantly improved with the addition of Cardizem drip and tolerating heparin drip well without signs of bleeding We will plan on JADA guided cardioversion in the a.m. The patient is very anxious about the exam and states that he be prefers to be completely asleep for the procedures to manage anxiety so we will ask for anesthesia to provide sedation N.p.o. after midnight The above plan was discussed with the patient his in great length and there in agreement. We have discussed antiarrhythmic therapy however given the timeline and the fact that is 3 days away the patient would prefer not to remain inpatient for sotalol initiation. Consideration could be given to initiation in the future. (2) Chest heaviness: Secondary to atrial fibrillation with rapid ventricular response Similar presentation in March 2018 with subsequent normal stress echocardiogram. Do not see any objective finding of ischemia at this point. (3) Crohn's disease: On chronic immunosuppressive therapy however stable clinically per patient Subjective Patient seen and examined with at bedside. States he has had some abdominal discomfort overnight otherwise feeling well. Denies any chest pain, shortness of breath, palpitations, lightheadedness, dizziness or syncope. Telemetry reviewed: Atrial fibrillation with variable rates relatively well controlled. Review of Systems Review of Systems: All systems reviewed & are unremarkable except as noted in HPI & below Physical Exam 2 Physical Exam: General: Awake, alert and oriented x 3. No acute distress. HEENT: Normocephalic, atraumatic. Pupils equal, round and reactive to light and accommodation. Extraocular muscles are intact. Anicteric sclera. Moist mucous membranes. Neck: No JVD. No bruit. Cardiovascular: irregularly irregular, unable to appreciate murmur, rub or gallop. Pulmonary: Clear to auscultation bilaterally. No rales, rhonchi, or wheezing. Abdomen: Bowel sounds x 4, soft. No rebound, guarding or tenderness. No organomegaly. Extremities: No clubbing, cyanosis or edema. +2 pedal pulses bilaterally. Skin: Warm and dry. 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
[2019-03-06 06:28] LABS: Partial Thromboplastin Ratio 2.3
[2019-03-06 06:29] LABS: BUN Creatinine Ratio 16.1 (10-20); Calcium 8.6 mg/dl (8.5-10.1); Creatinine Clr Calc Pharmacy 118.4 ml/min; Est GFR (African American) 119.3; Est GFR (Non-African American) 102.9; Magnesium 2.3 mg/dl (1.8-2.4); Potassium 3.9 mmol/L (3.5-5.1)
[2019-03-06 06:44] LABS: Partial Thromboplastin Time 62.3 Seconds (21.0-31.0)
[2019-03-06] MEDS: LOPERAMIDE HCL 2 MG CAP PO SCH ×2 (06:55→11:07)
[2019-03-06] MEDS: CHOLESTYRAMINE LIGHT 4 GM PKT PO SCH ×2 (06:55→09:31)
[2019-03-06] MEDS: PANTOprazole 40 MG TAB PO SCH (06:55)
[2019-03-06 07:40] VITALS: TEMP 98.1
[2019-03-06] MEDS ORDERED: LIDOCAINE HCL 2% 2 ML VIAL/AMP(20MG/ML) INFIL ONE ×2 (08:09→08:14)
[2019-03-06] MEDS ORDERED: PROPOFOL IV EMULSION 10 MG/ML 20 ML VIAL IV ONE (08:09)
--- NOTE | 2019-03-06 08:15 | Communication Note ---
Date of Service: March 06, 2019 Pt. for JADA guided cardioversion this morning. I have explained the risk, benefit and intent and he is willing to proceed.
--- NOTE | 2019-03-06 08:25 | Anesthesiology Consultation ---
Date of Service March 06, 2019 Crohn's TPN AFib GERD Assessment & Plan (1) Encounter for pre-operative examination: Chart Review Chart Review: Acceptable Risk for Surgery and Patient NOT seen in Pre Admission Testing Consults Requested none ASA ASA3 Proposed Anesthesia Risk / Benefits Reviewed With: PT / POA / Parent / Guardian, Accepts Plan and Informed Consent Obtained History Height/Weight Height: 6 ft Weight: 83.6 kg Allergies Allergy/AdvReac Type Severity Reaction Status Date / Time Sulfa (Sulfonamide Allergy Unknown UNKNOWN Verified 03/04/19 06:09 Antibiotics) infliximab AdvReac Severe " LUPUS Verified 03/04/19 06:09 SYMPTOMS" Medications Home Medications Medication Instructions Recorded Confirmed Last Taken Bivigam 1 dose IV Q4WK 04/11/18 03/04/19 11/30/18 TPN Electrolytes 1 dose IV 3XWK 04/11/18 03/04/19 12/16/18 azathioprine 150 mg PO DAILY 04/11/18 03/04/19 12/16/18 budesonide 3 mg PO DAILY 04/11/18 03/04/19 12/16/18 calcium carbonate [Calcium 600] 600 mg PO DAILY 04/11/18 03/04/19 12/16/18 cholestyramine (with sugar) 4 g PO BID 04/11/18 03/04/19 12/17/18 06:00 cyanocobalamin (vitamin B-12) 1,000 mcg IM WK 04/11/18 03/04/19 12/12/18 ergocalciferol (vitamin D2) 50,000 units PO 2XWK 04/11/18 03/04/19 12/16/18 loperamide 4 mg PO TIDM 04/11/18 03/04/19 12/17/18 06:00 metronidazole 250 mg PO TID 04/11/18 03/04/19 Unknown ustekinumab 1 dose SUBCUT UD 04/11/18 03/04/19 11/29/18 acetaminophen [Tylenol Extra 500 mg PO Q6H PRN 03/04/19 03/04/19 Unknown Strength] ciprofloxacin HCl [Cipro] 500 mg PO BID 03/04/19 03/04/19 Unknown denosumab [Prolia] 60 mg SUBCUT UD 03/04/19 03/04/19 Unknown metoprolol tartrate 25 mg PO TID 03/04/19 03/04/19 Unknown omeprazole 20 mg PO BID 03/04/19 03/04/19 Unknown sumatriptan succinate 100 mg PO DIRECTED PRN 03/04/19 03/04/19 Unknown zoledronic [id number] 2 mg IV YEARLY 03/04/19 03/04/19 Unknown [Reclast] Active Medications Generic Name Dose Route Start Last Admin Trade Name Freq PRN Reason Stop Dose Admin Al Hydrox/Mg Hydrox/Simethicone 30 ml 03/05/19 09:52 03/05/19 10:06 Maalox Max PO 04/04/19 09:51 30 ml Q6H PRN Administration Dyspepsia Azathioprine 150 mg 03/04/19 11:30 03/05/19 11:29 Imuran PO 04/03/19 11:29 150 mg QDL STANLEY Administration Budesonide 3 mg 03/04/19 11:30 03/05/19 11:28 Entocort Ec PO 04/03/19 11:29 3 mg QDL STANLEY Administration Cholestyramine Resin 4 gm 03/04/19 18:00 03/06/19 06:55 Questran PO 04/03/19 17:59 Not Given BID@0600,1800 ST[place]LEY Ciprofloxacin 500 mg 03/04/19 10:44 03/05/19 21:12 Cipro PO 04/03/19 10:43 500 mg BID STANLEY Administration Heparin Sodium (Beef Lung) 5 ml 03/05/19 00:12 03/05/19 21:16 Heparin Sod 10 Unit/Ml Flush FLUSH 04/04/19 00:11 5 ml PRN PRN Administration Flush Diltiazem HCl 125 mg/ Dextrose 125 mls @ 5 mls/hr 03/04/19 11:45 03/06/19 07:09 IV 04/03/19 11:44 5 mg/hr .Q24H STANLEY 5 mls/hr Titration Protocol 5 MG/HR Heparin Sodium/Dextrose 25,000 units in 500 mls @ 29 mls/hr 03/04/19 12:15 03/06/19 07:10 Heparin Sodium/Dextrose IV 04/03/19 12:14 1,450 units/hr .[id number] STANLEY 29 mls/hr Titration Protocol 1,450 UNITS/HR Loperamide HCl 4 mg 03/04/19 12:00 03/06/19 06:55 Imodium PO 04/03/19 11:59 Not Given TID@0600,1200,1700 [facility] Metoprolol Tartrate 50 mg 03/04/19 09:31 03/05/19 21:12 Lopressor PO 04/03/19 09:30 50 mg TID STANLEY Administration Metronidazole 250 mg 03/04/19 11:30 03/05/19 21:12 Flagyl PO 04/03/19 11:29 250 mg TID@0800,1430,2200 ST[place]LEY Administration Pantoprazole Sodium 40 mg 03/04/19 18:00 03/06/19 06:55 Protonix PO 04/03/19 17:59 Not Given BID@0600,1800 STAN[place] Past Medical History Medical History Chest pain (Resolved) Crohn's disease (Chronic) "s/p small bowel resection" GERD (gastroesophageal reflux disease) (Chronic) History of Lyme disease (Resolved) History of urinary calculi (Chronic) Long-term use of immunosuppressant medication (Chronic) Stelara, Imuran, IVIG" On 07/13/15 11:34 Sully Dumont wrote "Cimzia, Imuran, IVIG" Malnutrition (Chronic) Exercise / Class Metabolic Activity II 4-5 Yardwork/Stairs/Walk up hill Past Family History Family History Father Arrhythmia Pacemaker Other Pancreatic cancer Past Surgical History Surgical History History of bowel resection (Chronic) "2/3rds small bowel removed 2* crohns" Status post cystoscopy (Resolved) "with ureteral stent" Past Anesthesia History No Hx of Anesthesia Complications and No Family Hx of Anesthesia Complications History of PONV No Hx of PONV and No Hx of Motion Sickness Social History Smoking Status: Never smoker Do You Dip or Chew Tobacco: No Hx Alcohol Use: No Hx Substance Use: No substance use type: does not use Physical Exam Vital Signs Last Vital Signs Temp 36.7 C 03/06/19 07:39 Pulse 69 03/06/19 07:39 Resp 18 03/06/19 07:39 BP 105/72 03/06/19 07:39 Pulse Ox 98 03/06/19 07:39 ENMT Mouth: no dentition abnormality Thyromental Distance: > or= 3.5 Finger Breadths Mallampati Class: II Neck normal visual inspection Respiratory normal respiratory effort Auscultation: lungs clear to auscultation bilaterally Cardiovascular Rate/Rhythm: regular rate and regular rhythm Chest (Breasts) Chest: + vascular access device or port (L Arm PICC) Psychiatric Orientation: alert Testing Laboratory Results 03/05/19 05:35 03/06/19 05:32 APTT 62.3 Seconds (21.0-31.0) H* 03/06/19 05:32 Electrocardiogram Date: 03/04/19 Findings: + AFIB @
--- NOTE | 2019-03-06 09:01 | Cardioversion ---
Date of Service March 06, 2019 Electrical Cardioversion Rpt Electrical Cardioversion Report After informed consent was obtained, the patient was sedated by anesthesia and a JADA completed. The patient then received 200 joules of synchronized energy converting him to NSR. The patient was recovered and returned to his room in stable condition.
[2019-03-06] MEDS ORDERED: CANNULA ONE (09:02)
[2019-03-06] MEDS: METOPROLOL TARTRATE 25 MG TAB PO SCH ×2 (09:29→13:34)
[2019-03-06] MEDS: metroNIDAZOLE 250 MG TAB PO SCH ×2 (09:32→14:13)
[2019-03-06] MEDS: CIPROFLOXACIN 500 MG TAB PO SCH (09:33)
--- NOTE | 2019-03-06 10:16 | Anesthesiology Progress Note ---
Date of Service March 06, 2019 Anesthesia Post Procedure Vital Signs Vital Signs: Temp Pulse Resp BP Pulse Ox 03/06/19 09:05 62 20 140/67 96 03/06/19 09:00 60 20 120/67 96 03/06/19 07:39 36.7 C 69 18 105/72 98 03/06/19 04:15 36.5 C 75 16 110/70 97 03/05/19 22:59 36.6 C 72 20 106/62 98 03/05/19 19:06 36.9 C 84 20 117/75 96 03/05/19 15:18 36.6 C 76 18 96/56 L 96 03/05/19 11:43 36.5 C 78 18 106/67 98 Transfer of Care Handoff Completed per policy Notes Mental Status: alert / awake / arousable Patient Amnestic to Procedure: Yes Nausea / Vomiting: adequately controlled Pain: adequately controlled Airway Patency, RR, SpO2: stable & adequate BP & HR: stable & adequate Hydration State: stable & adequate Anesthetic Complications: no major complications apparent
[2019-03-06] MEDS: azaTHIOprine 50 MG TAB PO SCH (11:07)
[2019-03-06] MEDS: BUDESONIDE EC 3 MG CAP PO SCH (11:07)
[2019-03-06] MEDS ORDERED: APIXABAN 5 MG TABLET PO SCH (11:55)
--- NOTE | 2019-03-06 15:14 | Cardiology Progress Note ---
Date of Service March 06, 2019 Assessment & Plan (1) Atrial fibrillation with RVR: Status post successful JADA guided cardioversion with muslim of sinus rhythm currently now symptom-free. Will DC to home on metoprolol tartrate 25 mg 3 times daily along with Eliquis 5 mg twice daily. We have discussed antiarrhythmic therapy however given the timeline and the fact that is 3 days away the patient would prefer not to remain inpatient for sotalol initiation. Consideration could be given to initiation in the future. 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 Okay to DC to home at this time. (2) Chest heaviness: Secondary to atrial fibrillation with rapid ventricular response Similar presentation in March 2018 with subsequent normal stress echocardiogram. Do not see any objective finding of ischemia at this point. (3) Crohn's disease: On chronic immunosuppressive therapy however stable clinically per patient Subjective Patient seen and examined with his at bedside status post successful JADA guided cardioversion. He states he feels much better now and did not realize how poorly he felt while he was in atrial fibrillation. He states he just felt rundown and significantly fatigued. Now he denies any chest pain, shortness of breath, palpitations, lightheadedness, dizziness or syncope. Telemetry reviewed: Currently normal sinus rhythm. Review of Systems Review of Systems: All systems reviewed & are unremarkable except as noted in HPI & below Physical Exam Physical Exam: Physical Exam: General: Awake, alert and oriented x 3. No acute distress. HEENT: Normocephalic, atraumatic. Pupils equal, round and reactive to light and accommodation. Extraocular muscles are intact. Anicteric sclera. Moist mucous membranes. Neck: No JVD. No bruit. Cardiovascular: Regular. No S-4. Normal S-1 and S-2. No S-3. No murmurs, rubs or gallops. Pulmonary: Clear to auscultation bilaterally. No rales, rhonchi, or wheezing. Abdomen: Bowel sounds x 4, soft. No rebound, guarding or tenderness. No organomegaly. Extremities: No clubbing, cyanosis or edema. +2 pedal pulses bilaterally. Skin: Warm and dry. Results & Data Vital Signs (Past 12 Hours) Vital Signs Temp Pulse Resp BP Pulse Ox 03/06/19 11:29 36.7 C 50 L 17 109/69 98 03/06/19 09:22 54 L 18 109/70 95 03/06/19 09:05 62 20 140/67 96 03/06/19 09:00 60 20 120/67 96 03/06/19 07:39 36.7 C 69 18 105/72 98 03/06/19 04:15 36.5 C 75 16 110/70 97 (1) Crohn's disease Gastrointestinal tract location: small intestine Digestive disease complication type: with fistula Qualified Code(s): 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
--- NOTE | 2019-03-06 15:23 | Hospitalist Progress Note ---
Date of Service March 06, 2019 Assessment & Plan (1) Atrial fibrillation with RVR: Atrial Fibrillation RVR: H/O paroxysmal SVT, A. fib CHDS2 score:0 CXR: No acute cardiopulmonary disease TSH:5.1, Free T4:1.10 ECHO: Mild LVH, EF 55 to 60%, no wall motion abnormalities, mild AR, mild MR Troponin x2: Negative S/P successful JADA cardioversion Monitor electrolytes and replace as needed Cardizem and heparin drip discontinued Started on Eliquis for anticoagulation Continue metoprolol 25 mg 3 times daily Appreciate cardiology input May need to be started on antiarrhythmic medication in the future. Needs follow-up with cardiology upon discharge Hypomagnesemia Replace electrolytes as needed Crohn's disease Follows with gastroenterology in [place] On IVIG's, Stelara, Prolia (Due in Mar 2019) Continue ciprofloxacin, Flagyl--currently on it for 3 weeks due to acute flare Continue azathioprine, budesonide, cholestyramine, loperamide On TPN 3 times/week and NSS on off TPN days Monitor QTC while on Cipro GERD Continue PPI H/O Migraine, Chronic Sinusitis Stable DVT Px: Eliquis Code Status Full Code Disposition Plan to discharge home today Subjective Patient is seen and examined at bedside Patient had successful JADA cardioversion today States feeling much better after cardioversion Currently in sinus rhythm Palpitations resolved Denies any chest pain, shortness of breath, dizziness, nausea, abdominal pain Chronic diarrhea--unchanged Currently patient is not interested in being initiated on rhythm control medications Discussed with cardiology today Review of Systems Review of Systems: All systems reviewed & are unremarkable except as noted in HPI & below Physical Exam Physical Exam: Physical Exam: Vitals signs as noted above General Appearance:Moderately built and nourished, no apparent distress Head: normocephalic, Atraumatic Eyes: normal inspection, EOMI Neck: supple, Trachea midline Respiratory/Chest: Normal breath sounds, CTA Cardiovascular: S1, S2, No murmur Abdomen/GI:Soft, Non tender, Bowel sounds present Extremities/Musculoskelatal:normal inspection, no edema Neurologic/Psych:AAOX3, grossly no focal neurological deficits Skin: normal color, warm Results & Data Vital Signs (Past 12 Hours) Vital Signs Temp Pulse Resp BP Pulse Ox 03/06/19 11:29 36.7 C 50 L 17 109/69 98 03/06/19 09:22 54 L 18 109/70 95 03/06/19 09:05 62 20 140/67 96 03/06/19 09:00 60 20 120/67 96 03/06/19 07:39 36.7 C 69 18 105/72 98 03/06/19 04:15 36.5 C 75 16 110/70 97 Laboratory Results [facility] 03/06/19 05:32 Sodium 142 Potassium 3.9 Chloride 110 H Carbon Dioxide 28 BUN 13 Creatinine 0.81 Glucose 98 Calcium 8.6
[2019-03-06 15:34] VITALS: BP 108/66; O2SAT 96
--- NOTE | 2019-03-06 16:13 | Discharge Summary ---
Date of Service March 06, 2019 Admission HPI Per Admitting Provider Patient is a 53-year-old male with history of Crohn's disease, GERD, migraine, paroxysmal atrial fibrillation, paroxysmal SVT chronic sinusitis and other problems presents with history of persistent palpitations which started at about 3:45 AM this morning. Patient states to have left sided chest discomfort, nonradiating, associated with transient shortness of breath earlier this morning which currently resolved. Continues to have palpitations currently. He admits to taking his medications regularly. He states that he has been using ciprofloxacin, Flagyl since last 3 weeks for Crohn's flare. He also reports undergoing through a lot of stress lately at work. Denies any history of nausea, vomiting, abdominal pain, blood in stools. He has chronic diarrhea due to Crohn's disease which has been unchanged. He denies any history of dizziness, pedal edema, diaphoresis, cough, fever, chills, headache, dysuria, hematuria, recent change in medications. Admission Exam Per Admitting Provider Physical Exam: Vitals signs as noted above General Appearance:Moderately built and nourished, no apparent distress Head: normocephalic, Atraumatic Eyes: normal inspection, EOMI Neck: supple, Trachea midline Respiratory/Chest: Normal breath sounds, CTA, No accessory muscle use Cardiovascular: Irregularly irregular, tachycardia, No murmur Abdomen/GI:Soft, Non tender, Bowel sounds present Extremities/Musculoskelatal:normal inspection, no edema Neurologic/Psych:AAOX3, grossly no focal neurological deficits Skin: normal color, warm Principal Diagnosis Atrial fibrillation with RVR Discharge Data Allergies Allergy/AdvReac Type Severity Reaction Status Date / Time Sulfa (Sulfonamide Allergy Unknown UNKNOWN Verified 03/04/19 06:09 Antibiotics) infliximab AdvReac Severe " LUPUS Verified 03/04/19 06:09 SYMPTOMS" Consultations 03/04/19 06:29 ED Decision to Admit Stat 03/04/19 10:44 Consult Cardiology Routine 03/05/19 10:24 Consult Anesthesiology Routine 03/05/19 15:16 Consult Anesthesiology Routine 03/06/19 08:18 Consult Anesthesiology Routine Procedures Performed Operation Date: 03/06/19 08:00 Actual Procedures s Cardioversion - Josiah Seymour, s Echo Color Flow - Josiah Seymour, s Echo Doppler Complete - Josiah Seymour, p Echo Transesophageal - Josiah Seymour CXR: 1. Appropriately positioned PICC. 2. Hyperinflation suspected versus an exuberant inspiratory effort. 3. No other evidence of acute cardiopulmonary disease. Hospital Course (1) Atrial fibrillation with RVR: Atrial Fibrillation RVR: H/O paroxysmal SVT, A. fib CHDS2 score:0 CXR: No acute cardiopulmonary disease TSH:5.1, Free T4:1.10 ECHO: Mild LVH, EF 55 to 60%, no wall motion abnormalities, mild AR, mild MR Troponin x2: Negative S/P successful JADA cardioversion Monitor electrolytes and replace as needed Cardizem and heparin drip discontinued Started on Eliquis for anticoagulation Continue metoprolol 25 mg 3 times daily Appreciate cardiology input May need to be started on antiarrhythmic medication in the future. Needs follow-up with cardiology upon discharge Hypomagnesemia Replace electrolytes as needed Crohn's disease Follows with gastroenterology in [place] On IVIG's, Stelara, Prolia (Due in Mar 2019) Continue ciprofloxacin, Flagyl--currently on it for 3 weeks due to acute flare Continue azathioprine, budesonide, cholestyramine, loperamide On TPN 3 times/week and NSS on off TPN days Monitor QTC while on Cipro GERD Continue PPI H/O Migraine, Chronic Sinusitis Stable DVT Px: Eliquis Code Status Full Code Disposition Plan to discharge home today Total Time Total Time Spent Total Time Spent (In Minutes): 39 minutes Total Time Includes: Examination of the Patient, Discharge Planning, Medication Reconciliation, Communication With Other Providers and Other Discharge Plan Discharge Items Patient Disposition: Home - Self-Care Reason For Visit: SAMIA HDZ, IRREG H. RATE, SOB Discharge Diagnosis: Atrial fibrillation Activity: Resume your previous activity Exercise/Sports: Gradually increase as tolerated Non-emergency contact: Primary Care Provider and Security Ambassador Call non-emergency contact if: you have any medication questions, your symptoms worsen, your pain is not controlled, your pain is worsening, your pain is unusual for you, your pain is concerning for you and you have a fever Follow-up/Referrals: Jp Morales MD [Primary Care Provider] - Diet: Heart Healthy and Low Fiber Addtl Attending Provider Instructions: Follow-up with Dr. Gonzalo Trinidad on March 11, 2019 at 1 PM for routine care at [facility], [facility] Office Follow-up with your content administrator Dr. Garg in 1 month as advised. Office will call you with appointment Monitor for any bleeding issues, as you are started on Eliquis. Seek immediate medical attention if your symptoms reoccur or worsen Pending Studies at Discharge: No Stand-Alone Forms: My [facility], Smoking Cessation Medications and DC Order Prescriptions: New Eliquis 5 mg Tablet 5 mg PO BID 30 Days Qty: 60 RF: 1 Continued loperamide 2 mg capsule 4 mg PO TIDM RF: 0 metronidazole 250 mg tablet 250 mg PO TID RF: 0 azathioprine 50 mg tablet 150 mg PO DAILY RF: 0 cyanocobalamin (vitamin B-12) 1,000 mcg/mL solution 1,000 mcg IM WK RF: 0 ergocalciferol (vitamin D2) 50,000 unit capsule 50,000 units PO 2XWK RF: 0 budesonide 3 mg capsule,delayed,extend.release 3 mg PO DAILY RF: 0 cholestyramine (with sugar) 4 gram powder 4 g PO BID RF: 0 ustekinumab 90 mg/mL syringe 1 dose subcut UD RF: 0 Bivigam 1 dose IV Q4WK RF: 0 TPN Electrolytes 1 dose IV 3XWK RF: 0 calcium carbonate [Calcium 600] 600 mg calcium (1,500 mg) Tablet 600 mg PO DAILY RF: 0 metoprolol tartrate 25 mg tablet 25 mg PO TID RF: 0 sumatriptan succinate 100 mg Tablet 100 mg PO DIRECTED PRN (Reason: Migraine Headache) RF: 0 acetaminophen [Tylenol Extra Strength] 500 mg Tablet 500 mg PO Q6H PRN (Reason: pain/fever) RF: 0 zoledronic [id number] [Reclast] 5 mg/100 mL Piggyback 2 mg IV YEARLY RF: 0 ciprofloxacin HCl [Cipro] 500 mg Tablet 500 mg PO BID RF: 0 omeprazole 20 mg Capsule,Delayed Release(Dr/Ec) 20 mg PO BID RF: 0 Prolia 60 mg/mL Syringe 60 mg SUBCUT UD RF: 0 Discharge Orders: Discharge Order (Routine); Ordered 03/06/19 Ordered By: Kash Arellano Admission Data Admit Date/Time: 03/04/19 09:15 Attending Provider: Kash Arellano Admit Provider: Kash Arellano Primary Care Provider: Jp Morales Other Providers: Alvin Ward ; Eloy Garg ; Aden Medina ; Josiah Austin ; Wendi Carter ; Sherice Smith ; Yakelin Madrigal ; Brie Hughes ; Maris Hassan ; Dang Fonseca ; Barrett Escalante ; Brent Amin ; Richie Casas ; Shannan Casas ; Juan Manuel Knott ; Thu Lopez ; Akash Eli ; Noble Charles ; Senthil Mei ; Willy Vega ; Aylin Forrest ; Jp [place] ; Maribel Wilde ; Wendy Whittington ; Jose Bolanos ; Debby Perdomo ; Elieser Hidalgo ; Chanell Trinidad ; Debby Martinez. ; Sonia Man ; Eloy Witt ; Elizabeth Germain ; Jennifer Henao ; Alia Nix ; Noemi Kenny A ; Alvin Kenny V ; Edward Javier ; Yakelin Hope ; Dima Mcwilliams ; Frederick Weldon ; Latia Aparicio ; Ritika Jacobs ; Alvin Mcnamara ; Giovanny Forrest ; Mohit Bianchi. ; Lyndsay Garcia. ; Alia Morgan ; Josiah Matias ; Lissette Chau. ; Noble Mims ; Yassine Medina ; Dejah Horn ; Severiano Coronel ; Jarrett Pablo Other Interventions: Discharge Summary Assessment (RN) Last Done: 03/06/19 16:24 DC Date/Time DO NOT enter until pt leaves facility: 03/06/19 16:43
[2019-03-06 16:25] VITALS: PULSE 69
== END 2019-03-06 16:43 | disposition home or self-care (01) | DRG 309 ==
LOC: ED 05:14 → 2S 09:15